=== PATIENT | male | born 1945 | race Caucasian/White ===

== ENCOUNTER 2018-12-28 13:21 | Emergency (ER) | payer OTHER, SELFPAY ==
[2018-12-28 13:26] VITALS: BP 156/80; PULSE 83; RESP 18; TEMP 36.6; O2SAT 99
--- NOTE | 2018-12-28 13:49 | W.ED.GENAD ---
Discharge Plan Disposition Patient Disposition: HOME Condition: Stable Discharge Details Chief Complaint: RashLesion Clinical Impression: Herpes zoster Primary Care Provider: Victor M Jeff ED Provider: Arun Humphries Home Meds and New Rx's Prescriptions: New valacyclovir 1 gram tablet 1,000 mg PO TID 7 Days Qty: 21 RF: 0 Continued aspirin [Aspirin Low-Strength] 81 MG tablet,chewable 1 tab PO DAILY RF: 0 omeprazole [Prilosec] 40 MG capsule,delayed release(DR/EC) 1 cap PO DAILY Qty: 90 RF: 4 amlodipine 5 MG tablet 5 mg PO DAILY Qty: 90 RF: 4 One-A-Day Men VitaCraves 200 mcg Tablet,Chewable RF: 0 Discharge Instructions Instructions: Shingles (ED) Additional Instructions: For discomfort you may apply aebt-sfp-zizfzqc lidocaine cream to areas of pain along with using Tylenol as directed on fryg-gne-gvcwtsp packaging. Please take medication until completely gone and return to the emergency department for any new or significant worsening of symptoms or further concerns otherwise follow-up with your primary care provider for reassessment as needed. Referrals: Victor M Jeff, DO [Primary Care Provider] - (As needed for reassessment or if not improving) Medical Decision Making Patient reports over the past 1 to 2 days he has felt generalized malaise but while riding on his atof-zw-nfpc this morning he started noticing some discomfort underneath his left arm. When he looked underneath his shirt he noticed a rash streaking around to his back. Patient denies any other symptoms and states that pain is minimal. Physical exam shows a mildly erythematous vesicular rash in a bandlike distribution underneath the left axilla ranging from the anterior left chest wall onto the back. Exam is otherwise unremarkable. Patient has classic symptoms of herpes zoster and placed on valacyclovir and encouraged to use ylgv-ssi-jzgoopq lidocaine cream for discomfort or acetaminophen as needed. Did consider placing patient on steroids but given history of GERD and Lin's esophagus I feel that given his report of minimal amounts of pain that this is not necessary at this time. Return precautions were discussed. After discussion of diagnosis and plan of care patient states that he has no further needs, questions, or concerns at this time and understands that he may return for any new or worsening symptoms or further concerns he may have. HPI General Mode of arrival: ambulatory. Date/Time Provider Initiated Documentation: 12/28/18 13:49. Limitations to Documentation: no limitations. Information obtained by: patient and RN notes reviewed. History of Present Illness 73 year old M presents to the emergency department with the chief complaint of rash, described as mild, with intensity rated at 1. Quality is described as burning and aching, and is localized to the chest (left chest wall). Patient started experiencing this day(s) (1) and it has been constant. No relieving factors improve symptom(s), No exacerbating factors reported . Patient did receive the following treatments prior to arrival, none Related Data Home Medications Medication Instructions Recorded Confirmed aspirin [Aspirin Low-Strength] 1 tab PO DAILY tab-cap 01/14/13 12/28/18 omeprazole [Prilosec] 1 cap PO DAILY #90 tab-cap 01/15/13 12/28/18 amlodipine 5 mg PO DAILY #90 tab-cap 03/26/18 12/28/18 One-A-Day Men VitaCraves 12/28/18 valacyclovir 1,000 mg PO TID 7 Days #21 tab 12/28/18 Previous Rx's Medication Instructions Recorded amlodipine 5 mg PO DAILY #90 tab-cap 03/26/18 valacyclovir 1,000 mg PO TID 7 Days #21 tab 12/28/18 Allergies Allergy/AdvReac Type Severity Reaction Status Date / Time No Known Allergies Allergy Unverified 12/28/18 13:42 General Stated Complaint: RashLesion GRISELDA: 4 Review of Systems Constitutional Denies fever(s) and Reports malaise Cardiovascular Denies chest pain and Denies dyspnea Respiratory Denies dyspnea Gastrointestinal Denies nausea and Denies vomiting Integumentary/Breasts Reports as per HPI and Reports rash PFSH Medical History Lin's esophagus GERD Hypertriglyceridemia Rosacea Smoker TUBULAR ADENOMA TUBULOVILLOUS ADENOMA OF RECTUM Surgical History Appendectomy (~1994) Cholecystectomy (~2010) Family History Father Heart disease Mother Cerebral arterial thrombosis Sister No problems noted. Sister No problems noted. Brother No problems noted. Son No problems noted. Son No problems noted. Social History Smoking/Tobacco Use Status: Current, status unknown Drug use: Never Do you feel safe at home: Yes Do you feel safe in your relationship?: Yes Exam Const General: cooperative, no acute distress and not ill appearing Orientation: alert, awake and oriented x3 Resp Effort & Inspection: normal respiratory effort, able to speak in complete sentences and no respiratory distress Skin Rashes: rashes noted (Vesicular mildly erythematous rash noted in bandlike distribution L axilla) Course Vital Signs Temperature 36.6 C 12/28/18 13:26 Pulse 83 12/28/18 13:26 Respiratory Rate 18 12/28/18 13:26 Blood Pressure 156/80 H 12/28/18 13:26 Pulse Oximetry 99 12/28/18 13:26 Temperature 36.6 C 12/28/18 13:26 Temperature Source Temporal Artery Scan 12/28/18 13:26 Pulse 83 12/28/18 13:26 Respiratory Rate 18 12/28/18 13:26 Respiratory Effort Non-Labored 12/28/18 13:41 Blood Pressure 156/80 H 12/28/18 13:26 Blood Pressure Position Sitting 12/28/18 13:26 Pulse Oximetry 99 12/28/18 13:26 Oxygen Delivery Method Room Air 12/28/18 13:26 Oxygen Flow Rate 0 12/28/18 13:26 Pain Level 2 12/28/18 13:26
--- NOTE | 2018-12-28 13:52 | ED.GENADUL_ITS ---
Discharge Plan Disposition Patient Disposition: HOME Condition: Stable Discharge Details Chief Complaint: RashLesion Clinical Impression: Herpes zoster Primary Care Provider: Victor M eJff ED Provider: Arun Humphries Home Meds and New Rx's Prescriptions: New valacyclovir 1 gram tablet 1,000 mg PO TID 7 Days Qty: 21 RF: 0 Continued aspirin [Aspirin Low-Strength] 81 MG tablet,chewable 1 tab PO DAILY RF: 0 omeprazole [Prilosec] 40 MG capsule,delayed release(DR/EC) 1 cap PO DAILY Qty: 90 RF: 4 amlodipine 5 MG tablet 5 mg PO DAILY Qty: 90 RF: 4 One-A-Day Men VitaCraves 200 mcg Tablet,Chewable RF: 0 Discharge Instructions Instructions: Shingles (ED) Additional Instructions: For discomfort you may apply eunf-tsi-dcolfhc lidocaine cream to areas of pain along with using Tylenol as directed on cvkc-bww-ddltiyx packaging. Please take medication until completely gone and return to the emergency department for any new or significant worsening of symptoms or further concerns otherwise follow- up with your primary care provider for reassessment as needed. Referrals: Victor M Jeff, DO [Primary Care Provider] - (As needed for reassessment or if not improving) Medical Decision Making Patient reports over the past 1 to 2 days he has felt generalized malaise but while riding on his gizc-bt-hqro this morning he started noticing some discomfort underneath his left arm. When he looked underneath his shirt he noticed a rash streaking around to his back. Patient denies any other symptoms and states that pain is minimal. Physical exam shows a mildly erythematous vesicular rash in a bandlike distribution underneath the left axilla ranging from the anterior left chest wall onto the back. Exam is otherwise unremarkab le. Patient has classic symptoms of herpes zoster and placed on valacyclovir and encouraged to use iohj-jcq-tionxuo lidocaine cream for discomfort or acetaminophen as needed. Did consider placing patient on steroids but given history of GERD and Lin's esophagus I feel that given his report of minimal amounts of pain that this is not necessary at this time. Return precautions were discussed. After discussion of diagnosis and plan of care patient states that he has no further needs, questions, or concerns at this time and understands that he may return for any new or worsening symptoms or further concerns he may have. HPI General Mode of arrival: ambulatory . Date/Time Provider Initiated Documentation: 12/28/18 13:49 . Limitations to Documentation: no limitations . Information obtained by: patient and RN notes reviewed . History of Present Illness 73 year old M presents to the emergency department with the chief complaint of rash, described as mild, with intensity rated at 1. Quality is described as burning and aching, and is localized to the chest (left chest wall). Patient started experiencing this day(s) (1) and it has been constant. No relieving factors improve symptom(s), No exacerbating factors reported . Patient did receive the following treatments prior to arrival, none Related Data Home Medications Medication Instructions Recorded Confirmed aspirin [Aspirin Low-Strength] 1 tab PO DAILY tab-cap 01/14/13 12/28/18 omeprazole [Prilosec] 1 cap PO DAILY #90 tab-cap 01/15/13 12/28/18 amlodipine 5 mg PO DAILY #90 tab-cap 03/26/18 12/28/18 One-A-Day Men VitaCraves 12/28/18 valacyclovir 1,000 mg PO TID 7 Days #21 tab 12/28/18 Previous Rx's Medication Instructions Recorded amlodipine 5 mg PO DAILY #90 tab-cap 03/26/18 valacyclovir 1,000 mg PO TID 7 Days #21 tab 12/28/18 Allergies Allergy/AdvReac Type Severity Reaction Status Date / Time No Known Allergies Allergy Unverified 12/28/18 13:42 General Stated Complaint: RashLesion GRISELDA: 4 Review of Systems Constitutional Denies fever(s) and Reports malaise Cardiovascular Denies chest pain and Denies dyspnea Respiratory Denies dyspnea Gastrointestinal Denies nausea and Denies vomiting Integumentary/Breasts Reports as per HPI and Reports rash PFSH Medical History Lin's esophagus GERD Hypertriglyceridemia Rosacea Smoker TUBULAR ADENOMA TUBULOVILLOUS ADENOMA OF RECTUM Surgical History Appendectomy (~1994) Cholecystectomy (~2010) Family History Father Heart disease Mother Cerebral arterial thrombosis Sister No problems noted. Sister No problems noted. Brother No problems noted. Son No problems noted. Son No problems noted. Social History Smoking/Tobacco Use Status: Current, status unknown Drug use: Never Do you feel safe at home: Yes Do you feel safe in your relationship?: Yes Exam Const General: cooperative, no acute distress and not ill appearing Orientation: alert, awake and oriented x3 Resp Effort & Inspection: normal respiratory effort, able to speak in complete sentences and no respiratory distress Skin Rashes: rashes noted (Vesicular mildly erythematous rash noted in bandlike distribution L axilla) Course Vital Signs Temperature 36.6 C 12/28/18 13:26 Pulse 83 12/28/18 13:26 Respiratory Rate 18 12/28/18 13:26 Blood Pressure 156/80 H 12/28/18 13:26 Pulse Oximetry 99 12/28/18 13:26 Temperature 36.6 C 12/28/18 13:26 Temperature Source Temporal Artery Scan 12/28/18 13:26 Pulse 83 12/28/18 13:26 Respiratory Rate 18 12/28/18 13:26 Respiratory Effort Non-Labored 12/28/18 13:41 Blood Pressure 156/80 H 12/28/18 13:26 Blood Pressure Position Sitting 12/28/18 13:26 Pulse Oximetry 99 12/28/18 13:26 Oxygen Delivery Method Room Air 12/28/18 13:26 Oxygen Flow Rate 0 12/28/18 13:26 Pain Level 2 12/28/18 13:26
== END 2018-12-28 14:02 | disposition home or self-care (01) ==
PROVIDERS: Emergency Provider Nurse Practitioner Family; PCP Emergency Medicine
DX: B02.9 Zoster without complications (principal)
CPT/HCPCS: 99283

== ENCOUNTER → 2022-03-22 02:06 | Outpatient (CLI) | payer MEDICARE, SELFPAY ==
--- NOTE | 2022-03-22 08:00 | DI.RAD_ITS ---
Exam(s) XR HIP RT COMPLETE AP PELVIS EXAM: XR HIP RT COMPLETE AP PELVIS CLINICAL HISTORY: rt hip pain, M25.551. TECHNIQUE: 2D digital imaging was performed. FINDINGS: Two views No evidence of pelvic nor hip fracture. Moderate-advanced joint space narrowing in the right hip, fu rther slightly increased from the prior study of 2017. Left hip appears unchanged. Sacroiliac joint s unremarkable. L4-5 disc space narrowing again noted. IMPRESSION: Further degenerative narrowing of the right hip joint space, when compared to 2017 DATA REPOSITORY: RADIATION DOSE DELIVERED:
--- NOTE | 2022-03-22 08:13 | DI.CTLCSR_ITS ---
Exam(s) CT CHEST LUNG CANCER SCREEN EXAM: CT CHEST LUNG CANCER SCREEN CLINICAL HISTORY: Screening for lung cancer, CURRENT SMOKER, F17.210. TECHNIQUE: Imaging Protocol: Low Dose Technique CONTRAST MATERIAL: None COMPARISON: CR ABD FLAT UPRIGHT PA CHEST from 09/21/2010 FINDINGS: CHEST: LUNGS: There is an area of mild infiltrate in the anterior segment of the right upper lobe. There is also a 3 millimeter noncalcified pleural based nodule in the posterior segment of the right upper lo be. Also a 6 millimeter nodular infiltrate slightly lower down the anterior segment of the right upp er lobe. In the right lower lobe posteriorly there is a pleural based small infiltrate measuring 7 x 5 millime ters. No pleural effusions. In the opposite-left lung there is a pleural-based 4 x 3 millimeter nodule in the left lower lobe. T here are no significant focal findings in the left upper lobe nor within the lingular segments. No p leural effusions. No significant focal findings in the trachea mainstem bronchi. MEDIASTINUM: There is no obvious hilar nor mediastinal adenopathy. Visualized thyroid unremarkable. CARDIAC: Heart size upper normal. There is no pericardial effusion. Caliber thoracic aorta is withi n normal limitscaliber of the thoracic aorta is slightly enlarged at 3.9 cm.. OTHER: No significant adrenal masses. Hiatal hernia moderate size noted. OSSEOUS: No significant osseous lesions.. IMPRESSION: 1. Bilateral lung findings as described above. No pleural effusions. 2. Recommend repeat CT scan in 6 months, earlier if clinically indicated. 3. Lung RADS Cat 3 - Probably Benign: Probably benign finding(s) - short term follow-up suggested; in clude nodules with a low likelihood of becoming a clinically active cancer. Lung-RADS 1.0 CATEGORIES: Category 0 - Prior chest CT exam(s) being located for comparison. Category 1 - Annual screening in 12 months. No nodules or definitely benign nodules. Category 2 - Annual screening in 12 months. Benign appearance. Nodules with low likelihood of becomin g active cancer. Category 3 - 6-month follow-up. Probably benign. Short-term follow-up suggested. Nodules with low lik elihood of becoming active cancer. Category 4A - 3-month follow-up and CT/PET if >8 mm in size. Suspicious finding. Findings which requi re additional testing. Category 4B - Findings which require additional testing and tissue sampling. Category 4X - Category 3 or 4 nodules with additional features or imaging findings that increases the suspicion of malignancy. Modifier S- Potentially clinically significant findings (non lung cancer) RADIATION DOSE DELIVERED: 79.59mGy.cm Total DLP 1.84mGy CTDIvol DATA REPOSITORY: All CT scans at this facility are submitted to the National Radiology Data Registry (NRDR) Dose Index Registry (DIR) with the [employer] (ACR). RADIATION OPTIMIZATION: All CT scans at this facility use at least one of these dose optimization te chniques: automated exposure control; mA and/or kV adjustment per patient size (includes targeted exa ms where dose is matched to clinical indication); or iterative reconstruction.
== END ==
PROVIDERS: PCP Family Medicine; Visit Provider Family Medicine
DX: F17.210 Nicotine dependence, cigarettes, uncomplicated (principal); M25.551 Pain in right hip; Z12.2 Encounter for screening for malignant neoplasm of respiratory organs
CPT/HCPCS: 71271; 73502

== ENCOUNTER → 2022-06-08 10:03 | Outpatient (BNVA) | payer MEDICARE, SELFPAY | PROVIDERS: PCP Family Medicine; Referring Provider Family Medicine; Visit Provider Student in an Organized Health Care Education/Training Program | DX: M16.11 Unilateral primary osteoarthritis, right hip (principal) | CPT/HCPCS: 99203 ==

== ENCOUNTER → 2022-06-15 02:03 | Outpatient (CLI) | payer MEDICARE, SELFPAY ==
[2022-06-15] MEDS: methylPREDNISolone ACETATE 80 MG/ML VIAL IM (13:45)
[2022-06-15] MEDS: Bupivacaine 0.5% Pres-Free 10 ML VIAL 5 ML IJ (13:46)
[2022-06-15] MEDS: Omnipaque 300 MG/ML 10 ML BTL IJ (13:47)
--- NOTE | 2022-06-15 13:47 | DI.RAD_ITS ---
Exam(s) RF JOINT INJECTION FLUORO GUID EXAM: RF JOINT INJECTION FLUORO GUID CLINICAL HISTORY: R HIP INJ UNDER FLUORO,DJD RT HIP, PRIMARY OA,M16.11 TECHNIQUE: 2D and realtime digital imaging was performed. COMPARISON: No exams were available for comparison FINDINGS: fluoroscopy was utilized by Dr. Norris during right hip injection. Hard copy shows injection in t he right hip joint space. IMPRESSION: RADIATION DOSE DELIVERED: mook Sawyer=0.37 mGy Total DLP
--- NOTE | 2022-06-16 07:44 | W.PROCNOTE ---
Date of service: 06/15/22 Time of Service: 13:40 Procedure Note Date of procedure: 06/15/22 Procedure: Right Hip Injection with Fluoroscopic Guidance Surgeon/Proceduralist/Physician: Quincy Norris Procedure Diagnosis: Right Hip Osteoarthritis Procedure Indications: Juan has had persistent pain of the RIGHT hip and groin. Noninvasive measures have been tried. To serve as both diagnostic and therapeutic, an injection under fluoroscopy was recommended. I had discussed the risks of the procedure and the patient elected to proceed. Procedure Description: Juan was greeted in the flouroscopy room. The correct side was identified and the consent was reviewed with the patient and signed. The patient was then placed in the supine position on the fluoroscopy table. The RIGHT hip was then prepped with Chloraprep. The anterolateral injection starting point was identiifed by bony landmarks and fluoroscopy. The skin and soft tissue in the tract of the injection was anesthetized with 1% Lidocaine. A spinal needle was then inserted deep into the hip joint at the level of the lateral femoral neck under fluoroscopic guidance. A small amount of Omnipaque solution was injected to confirm intraarticular placement. Once confirmed, the hip was injected with 5cc of 0.5% Bupivicaine and 80mg of Depo-Medrol. A bandaid was placed on the injection site. The patient tolerated the procedure well.
== END ==
PROVIDERS: PCP Family Medicine; Visit Provider Student in an Organized Health Care Education/Training Program
DX: M16.11 Unilateral primary osteoarthritis, right hip (principal); M25.551 Pain in right hip
CPT/HCPCS: 20610; 77002; J1040

== ENCOUNTER 2022-07-04 02:24 | Outpatient (CLI) | payer MEDICARE, SELFPAY ==
[2022-07-04 08:46] LABS: Calculated LDL 92 mg/dL (<100); Cholesterol 150 mg/dL (<200); Glucose 140 mg/dL (74-106); HDL Cholesterol 38 mg/dL (40-60); Triglyceride 100 mg/dL (<150)
== END 2022-07-04 02:25 | disposition home or self-care (01) ==
LOC: LBO 02:24
PROVIDERS: PCP Family Medicine; Visit Provider Family Medicine
DX: E78.5 Hyperlipidemia, unspecified (principal); R73.9 Hyperglycemia, unspecified
CPT/HCPCS: 36415; 80061; 82947

== ENCOUNTER 2022-07-11 12:40 | Outpatient (CLI) | payer MEDICARE, SELFPAY ==
--- NOTE | 2022-07-11 12:30 | DI.RAD_ITS ---
Exam(s) XR ANKLE LT COMPLETE EXAM: XR ANKLE LT COMPLETE CLINICAL HISTORY: left ankle swelling M79.89 LT ANKLE SWELLING. TECHNIQUE: 2D digital imaging was performed. COMPARISON: No exams were available for comparison FINDINGS: 3 views Soft tissue swelling but no fracture nor widening of the ankle mortise. Talar dome unremarkable. No obvious degenerative changes. Ankle and subtalar joints appear unremarkable as do the talonavicular and calcaneocuboid joints. Bone density normal. No osseous lesions. IMPRESSION: No significant osseous findings. Soft tissue swelling noted. DATA REPOSITORY: RADIATION DOSE DELIVERED:
--- NOTE | 2022-07-11 12:30 | DI.US_ITS ---
Exam(s) US LOWER EXTREMITY VENOUS LT EXAM: US LOWER EXTREMITY VENOUS LT CLINICAL HISTORY: left leg swelling M79.89 TECHNIQUE: Grayscale, color, and doppler imaging of the deep venous system of the left lower extremi ty was performed. COMPARISON: US ABDOMEN ULTRASOUND (P) from 09/21/2010 FINDINGS: There is no evidence of intraluminal thrombus and there is normal compression and augmentation demons trated within the common femoral vein, femoral vein, and popliteal vein. In the ipsilateral calf the interrogated veins also exhibit normal compression/ augmentation properti es. The ipsilateral saphenofemoral junction is patent. IMPRESSION: 1. No evidence of DVT in the left lower extremity. DATA REPOSITORY:
== END 2022-07-11 13:00 ==
LOC: DI 12:40
PROVIDERS: PCP Family Medicine; Visit Provider Physician Assistant
DX: R22.42 Localized swelling, mass and lump, left lower limb (principal)
CPT/HCPCS: 73610; 93971

== ENCOUNTER 2022-08-10 15:41 | Outpatient (CLI) | payer MEDICARE, SELFPAY ==
[2022-08-10 15:44] LABS: HCT 28.4 % (40.0-50.0); HGB 7.2 g/dL (13.5-17.5); MCH 15.6 pg (27.0-33.0); MCHC 25.4 % (32.0-36.0); Platelet Count 278 10^3/uL (130-400); RBC 4.61 10^6/uL (4.36-5.78); RDW 21.5 % (11.8-14.1); RDW-SD 45.7 fL; WBC 9.68 10^3/uL (4.4-10.8)
[2022-08-10 16:16] LABS: MCV 62 fL (80-95)
[2022-08-10 16:28] LABS: ALT 20 U/L (16-63); AST 13 U/L (15-37); Albumin 3.5 g/dL (3.4-5.0); Alkaline Phosphatase 108 U/L (46-116); Anion Gap 4.7 mmol/L (3-11); BUN 13 mg/dL (7-18); Bilirubin, Total 0.6 mg/dL (0.2-1.0); CO2 29.3 mmol/L (21.0-32.0); CREATININE 0.9 mg/dL (0.70-1.30); Calcium 8.8 mg/dL (8.5-10.1); Chloride 101 mmol/L (98-107); Estimated GFR 87.96 (mL/min/1.73m2); Glucose 158 mg/dL (74-106); NT-proBNP 1283 pg/mL (<300); Potassium 3.9 mmol/L (3.5-5.1); Sodium 135 mmol/L (136-145); TSH (W/Ref FT4) 2.88 uIU/mL (0.36-3.74); Total Protein 7.5 g/dL (6.4-8.2)
== END 2022-08-10 15:42 | disposition home or self-care (01) ==
LOC: LBO 15:41
PROVIDERS: PCP Family Medicine; Visit Provider Nurse Practitioner Family
DX: I50.9 Heart failure, unspecified (principal); I10 Essential (primary) hypertension; R06.02 Shortness of breath; D64.9 Anemia, unspecified
CPT/HCPCS: 36415; 80053; 85027; 83880; 84443

== ENCOUNTER 2022-08-10 15:45 | Outpatient (CLI) | payer MEDICARE, SELFPAY ==
--- NOTE | 2022-08-10 13:30 | DI.RAD_ITS ---
Exam(s) XR CHEST 2V PA LATERAL EXAM: XR CHEST 2V PA LATERAL CLINICAL HISTORY: SOB x 1 month, R06.02, worsening. Abnormal sounds, adventitious, R06.89. TECHNIQUE: COMPARISON: CR ABD FLAT UPRIGHT PA CHEST from 09/21/[address] CHEST LUNG CANCER SCREEN from 03/22/2022 FINDINGS: Heart is enlarged. There are bilateral pleural effusions. There is prominence of upper lobe and lyndon tral pulmonary vasculature. Are increased pulmonary interstitial markings particularly in the lower lung mccabe. Possible right suprahilar pulmonary nodule, appropriate follow-up films requested follo wing treatment. IMPRESSION: The appearance is consistent with CHF. Please correlate clinically. RADIATION DOSE DELIVERED: Total DLP
== END 2022-08-10 16:05 ==
LOC: DI 15:45
PROVIDERS: PCP Family Medicine; Visit Provider Nurse Practitioner Family
DX: R06.02 Shortness of breath (principal); R06.89 Other abnormalities of breathing; I50.9 Heart failure, unspecified
CPT/HCPCS: 71046

== ENCOUNTER 2022-08-10 19:51 | Inpatient (IN) | payer MEDICARE, SELFPAY ==
--- NOTE | 2022-08-10 20:00 | RT.EKG_ITS ---
APPROVED REPORT Exam: Resting ECG Reason for Exam: heart rate Patient Location: E HR:94 bpm ECG Measurements Heart Rate 94 AXIS FL 159 P -13 QRSd 146 QRS 244 QT 422 T 30 QTc 528 Conclusion Sinus rhythm...normal P axis, V-rate 60- 99 Inferior infarct, old...Q >35mS, II III aVF
[2022-08-10 20:05] VITALS: BP 143/73; PULSE 94; RESP 18; TEMP 36.6; O2SAT 96
--- NOTE | 2022-08-10 20:30 | DI.CT_ITS ---
Exam(s) CT CHEST PE CTA EXAM: CT CHEST PE CTA CLINICAL HISTORY: chest pain, shortness of breath. TECHNIQUE: Imaging Protocol: Axial CT angiography was performed with multi-slice acquisition and mu lti-planar reconstructions as well as axial, coronal and sagittal MIP reconstructions. CONTRAST MATERIAL: Intravenous: Omnipaque 350 Contrast volume:100 ml COMPARISON: CT CT CHEST LUNG CANCER SCREEN from 03/22/2022 CR XR CHEST 2V PA LATERAL from 08/10/2022 FINDINGS: Pulmonary Arteries: No evidence of filling defect to suggest pulmonary emboli. Tracheobronchial tree: Patent where visualized. Mediastinum and Odalys: No dominant adenopathy or fluid collection. Pulmonary parenchyma: Suboptimally evaluated due to expiratory changes. Mild atelectasis adjacent to the effusions. Gnay-ys-iwcigcnu bilateral intra lobular septal thickening. Pleura: Moderate-sized bilateral pleural effusions Heart: The heart is moderately at dilated. Coronary artery calcifications are seen. Aorta: Thoracic aorta non-dilated. No aneurysm. No dissection. Upper abdomen: Small hiatal hernia. Bones: Degenerative changes, unremarkable for age. IMPRESSION: No evidence of pulmonary embolism. Moderate size bilateral pleural effusions, cardiomegaly and interlobular septal thickening consistent with CHF. RADIATION DOSE DELIVERED: 485.16mGy.cm Total DLP DATA REPOSITORY: All CT scans at this facility are submitted to the National Radiology Data Registry (NRDR) Dose Index Registry (DIR) with the [employer] (ACR). RADIATION OPTIMIZATION: All CT scans at this facility use at least one of these dose optimization te chniques: automated exposure control; mA and/or kV adjustment per patient size (includes targeted exa ms where dose is matched to clinical indication); or iterative reconstruction.
--- NOTE | 2022-08-10 20:34 | W.ED.GENAD ---
Discharge Plan Disposition Patient Disposition: Admit to [facility] Condition: Stable Discharge Details Chief Complaint: GenMedical Clinical Impression: CHF (congestive heart failure), Anemia Primary Care Provider: Jose Sesay ED Provider: Bo Anderson Grenola Meds and New Rx's Prescriptions: No Action cilostazol 100 mg tablet 100 mg PO BID Qty: 60 5RF nicotine (polacrilex) [Nicorette] 4 mg gum 4 mg buccal Q1H Qty: 100 8RF cephalexin 500 mg capsule 500 mg PO QID Qty: 40 0RF aspirin [Aspirin Low-Strength] 81 MG tablet,chewable 1 tab PO DAILY amlodipine 5 mg tablet 5 mg PO DAILY Qty: 90 4RF omeprazole [Prilosec] 40 mg capsule,delayed release(DR/EC) 40 mg PO BID Qty: 90 Rx Instructions: 12/28/18 20 mg bid furosemide 40 mg tablet 40 mg PO DAILY Qty: 7 0RF One-A-Day Men VitaCraves 200 mcg Tablet,Chewable Medical Decision Making 77 yo female with hx of jersey's esophagus, htn, who comes in with chief complaint of cough for 3 days. He states he was feeling well until 3 days ago when he started to have cough and body aches. He denies having any fevers, chills. No known sick contacts. He saw a provider at his pcp's office today for these symptoms, had labs done which revealed a hemoglobin of 7.2 which is unknown how long he has had this for as there hasn't been another cbc in the electronic medical record and also an xray showing likely chf so was referred here. He denies chest pain or dyspnea at rest but has noted that when he walks around he does feel short of breath and has felt this for weeks per patient. He is stable on arrival, speaking in full sentences in no distress. He has diminished breath sounds at the bases, no wheezing, no murmurs. On bedside u/s he does have diminished appearing EF and no pericardial effusion. He declines rectal exam currently, he will try to provide a stool sample for hemoccult testing. He has no abdominal tenderness on exam. Will obtain repeat cbc, cmp, probnp, troponin and also ct chest for pe to evaluate for possible pe. pt stable, appears well speaking in full sentences. CTA shows no pe, does have chf, 40mg iv lasix ordered. troponin minimally elevated at over 90, probnp over 1300, has microcytic anemia, hemoglobin 7.4 and do not feel he requires transfusion at this time. Guiac on bedside exam done by me is negative. He still has no dyspnea or chest pain currently. Given his new onset chf and minimally elevated troponin will discuss with hospiatlist about admission. will hold on heparin given lack of chest pain here or recently. Differential Diagnosis Differential Diagnosis: chf, pneumonia, pe, anemia, gi bleed Imaging Data Radiologic Study: Attestation: I personally reviewed and interpreted this imaging study as follows: Imaging: CT Scan Radiologist's impression: IMPRESSION: 1. Moderate appearing CHF with details as above. 2. No pulmonary emboli are seen. 3. Additional findings as described. Lab Data Lab results reviewed: Yes I reviewed the patient's lab results. ECG Data Attestation: I personally reviewed and interpreted this ECG (s) as follows: Prior ECG tracings: not available for review Interpretation: sinus rhythm, rate of 94, pr 159, no stemi Sign Out No HPI General Mode of arrival: ambulatory. Date/Time Provider Initiated Documentation: 08/10/22 20:00. Limitations to Documentation: no limitations. Information obtained by: patient. History of Present Illness 77 year old M presents to the emergency department with the chief complaint of cough, described as moderate, Patient started experiencing this day(s) (3) and it has been constant. No relieving factors improve symptom(s), No exacerbating factors reported . Patient notes denies diaphoresis and fever/chills. Patient did receive the following treatments prior to arrival, none Related Data Home Medications Medication Instructions Recorded Confirmed aspirin 81 mg chewable tablet 1 tab PO DAILY 01/14/13 08/10/22 (Aspirin Low-Strength) multivitamin with minerals-folic 12/28/18 08/10/22 acid 200 mcg chewable tablet (One-A-Day Men VitaCraves) amlodipine 5 mg tablet 5 mg PO DAILY #90 tab-caps 07/15/21 08/10/22 cilostazol 100 mg tablet 100 mg PO BID #60 tabs 03/14/22 08/10/22 omeprazole 40 mg capsule,delayed 40 mg PO BID #90 tab-caps 06/08/22 08/10/22 release (Prilosec) nicotine (polacrilex) 4 mg gum 4 mg buccal Q1H #100 ea 06/28/22 08/10/22 (Nicorette) cephalexin 500 mg capsule 500 mg PO QID #40 caps 07/11/22 08/10/22 furosemide 40 mg tablet 40 mg PO DAILY #7 tabs 08/10/22 Previous Rx's Medication Instructions Recorded amlodipine 5 mg tablet 5 mg PO DAILY #90 tab-caps 07/15/21 cilostazol 100 mg tablet 100 mg PO BID #60 tabs 03/14/22 nicotine (polacrilex) 4 mg gum 4 mg buccal Q1H #100 ea 06/28/22 (Nicorette) cephalexin 500 mg capsule 500 mg PO QID #40 caps 07/11/22 furosemide 40 mg tablet 40 mg PO DAILY #7 tabs 08/10/22 Allergies Allergy/AdvReac Type Severity Reaction Status Date / Time No Known Allergies Allergy Verified 08/10/22 13:18 General Stated Complaint: GenMedical GRISELDA: 3 Review of Systems All systems reviewed & are unremarkable except as noted in HPI and below Constitutional Constitutional: Denies chills, Denies fever(s) and Denies weakness Gastrointestinal Gastrointestinal: Denies abdominal pain, Denies nausea and Denies vomiting Musculoskeletal Musculoskeletal: Denies joint swelling Neurologic Neurologic: Denies weakness PFSH All Active Problems (Updated 08/10/22 @ 22:26 by Bo Anderson MD) CHF (congestive heart failure) (Chronic) Anemia (Chronic) CHF (congestive heart failure) (Chronic) Adventitious breath sounds (Acute) Shortness of breath (Acute) Degenerative joint disease of right hip (Acute) Claudication (Acute) Hip pain, right (Acute) 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 Sister No problems noted. Brother No problems noted. Son No problems noted. Son No problems noted. Social History Smoking/Tobacco Use Status: Current, status unknown Smoking risk assessment performed?: Yes Drug use: Never Substance use type: does not use Do you feel safe at home: Yes Do you feel safe in your relationship?: Yes Exam Const General: no acute distress Orientation: alert HENMT Head: normal to inspection Ears: external ears normal General nose exam: external nose normal Mouth: moist mucous membranes Eyes General: appearance normal, both eyes and all related structures Neck Neck: normal visual inspection Resp Effort & Inspection: normal respiratory effort and able to speak in complete sentences Cardio Rate: regular rate GI Palpation: soft and nontender Skin General skin exam: no rashes or lesions noted Neuro General: patient alert and patient oriented x3 Extrem General: normal to inspection Psych Mental Status: mental status grossly normal Course Vital Signs Vital signs: Vital Signs Temperature 36.6 C 08/10/22 20:05 Pulse 94 H 08/10/22 20:05 Respiratory Rate 18 08/10/22 20:05 Blood Pressure 143/73 H 08/10/22 20:05 Pulse Oximetry 96 08/10/22 20:05 Temperature 36.6 C 08/10/22 20:05 Temperature Source Temporal Artery Scan 08/10/22 20:05 Pulse 94 H 08/10/22 20:05 Respiratory Rate 18 08/10/22 20:05 Blood Pressure 143/73 H 08/10/22 20:05 Pulse Oximetry 96 08/10/22 20:05 Oxygen Delivery Method Room Air 08/10/22 20:05 Oxygen Flow Rate 0 08/10/22 20:05 Pain Level 0 08/10/22 20:05 Lab/Test Results Lab/Test Results: Laboratory Tests Range/Units 08/10/22 20:16 COVID-19 Source Cancelled SARS-CoV-2 (PCR) Cancelled POCUS Exam (ED) Limited Cardiac Exam DATE OF EXAM: 08/10/22 TIME OF EXAM: 20:36 PROVIDER THAT PERFORMED THE STUDY: Bo Anderson REASON FOR EXAM: Evaluation of LV function VISUALIZED STRUCTURES: Four Chambers VIEW OBTAINED: Parasternal long-axis PERTINENT FINDINGS/IMPRESSION: LV dysfunction; No pericardial effusion Exam complete
[2022-08-10 20:56] VITALS: RESP 21
[2022-08-10 20:57] LABS: Abs Immature Grans 0.06 10^3/uL (0.0-0.06); Absolute Basophil Count 0.07 10^3/uL (0.0-0.2); Absolute Eosinophil Count 0.34 10^3/uL (0.0-0.7); Absolute Monocyte Count 0.71 10^3/uL (0.1-0.8); Absolute Neutrophil Count 7.96 10^3/uL (1.2-6.7); Basophils % 0.7; Eosinophils % 3.2; HCT 29.1 % (40.0-50.0); HGB 7.4 g/dL (13.5-17.5); Immature Grans % 0.6; Lymphocytes % 13.3; MCH 15.6 pg (27.0-33.0); MCHC 25.4 % (32.0-36.0); MCV 61 fL (80-95); MPV 9.8 fL (8.0-11.0); Monocytes % 6.7; Neutrophils % 75.5; Nucleated RBC 0.2 % (0.0-0.3); Platelet Count 271 10^3/uL (130-400); RBC 4.74 10^6/uL (4.36-5.78); RDW 21.3 % (11.8-14.1); RDW-SD 45.7 fL; WBC 10.54 10^3/uL (4.4-10.8)
[2022-08-10 21:06] LABS: INR 1.1 (0.9-1.1); PTT Activated 25.4 sec (21.0-27.5)
[2022-08-10 21:08] LABS: Bilirubin Negative (Negative); Blood Negative (Negative); Clarity Clear (Clear); Glucose Negative (Negative); Ketones Negative (Negative); Leukocyte Esterase Trace (Negative); Nitrite Negative (Negative); Urobilinogen 0.2 EU/dL (Up TO 0.2); pH 6.5 (5-8)
[2022-08-10] MEDS: Omnipaque 350 MG/ML 100 ML BTL IJ (21:10)
[2022-08-10] MEDS: Normal Saline - Diluent 50 ML VIAL IJ (21:11)
[2022-08-10 21:15] LABS: ALT 20 U/L (16-63); AST 15 U/L (15-37); Albumin 3.4 g/dL (3.4-5.0); Alkaline Phosphatase 109 U/L (46-116); Anion Gap 6.7 mmol/L (3-11); BUN 13 mg/dL (7-18); Bilirubin, Total 0.5 mg/dL (0.2-1.0); CO2 29.3 mmol/L (21.0-32.0); Calcium 8.7 mg/dL (8.5-10.1); Chloride 100 mmol/L (98-107); Estimated GFR 77.52 (mL/min/1.73m2); Glucose 183 mg/dL (74-106); Magnesium 1.7 mg/dL (1.8-2.4); NT-proBNP 1329 pg/mL (<300); Potassium 3.7 mmol/L (3.5-5.1); Sodium 136 mmol/L (136-145); Total Protein 7.4 g/dL (6.4-8.2)
[2022-08-10 21:18] LABS: Troponin I 93 ng/L (<or=60)
[2022-08-10] MEDS: Furosemide 40 MG/4 ML VIAL IVP (21:31)
[2022-08-10 21:32] LABS: Anisocytosis 3+; Diff Comment Agrees w/ Instrument; Microcytosis 3+; Ovalocytes 3+; Target Cells 2+
[2022-08-10 21:33] LABS: Poikilocytes 2+
--- NOTE | 2022-08-10 21:35 | DI.VRAD_ITS ---
PROCEDURE INFORMATION: Exam: CTA Chest With Contrast Exam date and time: 08/10/2022 20:50 Age: 77 years old Clinical indication: Shortness of breath and other: Chest pain, shortness of breath TECHNIQUE: Imaging protocol: Computed tomographic angiography of the chest with contrast. 3D rendering (Not supervised by radiologist): MIP and/or 3D reconstructed images were created by the technologist. Radiation optimization: All CT scans at this facility use at least one of these dose optimization techniques: automated exposure control; mA and/or kV adjustment per patient size (includes targeted exams where dose is matched to clinical indication); or iterative reconstruction. Contrast material: OMNI 350; Contrast volume: 100 ml; Contrast route: INTRAVENOUS (IV); COMPARISON: CT CHEST LUNG CANCER SCREEN 03/22/2022 14:40 FINDINGS: Pulmonary arteries: No pulmonary emboli. Aorta: No aortic aneurysm. No aortic dissection. Lungs: Interlobular septal thickening almost certainly interstitial pulmonary edema. Mild ground-glass opacities almost certainly a mild alveolar edema. Moderate compressive atelectasis in the lung bases. Pleural spaces: Moderate bilateral pleural effusions are new. No pneumothorax. Heart: Moderate cardiomegaly is more pronounced. Lymph nodes: Mediastinal lymph nodes are mildly prominent particularly in the paratracheal space. Bones/joints: No acute fracture or subluxation. Soft tissues: No suspicious lesions. IMPRESSION: 1. Moderate appearing CHF with details as above. 2. No pulmonary emboli are seen. 3. Additional findings as described. Dictated and Authenticated by: Indy Green MD. Ordering:ARVIN Soriano MD
[2022-08-10 21:43] LABS: Bacteria Negative HPF (Negative); C & S Indicated? Yes; Casts 0-2 Hyaline LPF (Negative); Crystals Negative HPF (Negative); Epithelial Cells Rare HPF (Negative); Mucus Negative (Negative); RBC 0-2 HPF (0-2)
[2022-08-10 21:58] LABS: COVID-19 PCR Negative (Negative); Influenza A PCR Negative (Negative); Influenza B PCR Negative (Negative); RSV PCR Negative (Negative)
[2022-08-10 22:03] LABS: Source Nasopharynx
[2022-08-10] MEDS: Aspirin 325 MG TAB PO (23:08)
[2022-08-10 23:18] VITALS: BP 120/78; PULSE 90; RESP 22; TEMP 36.7; O2SAT 95
--- OUTSIDE RECORDS SUMMARY | 2022-08-10 23:23 | XMS_ITS | Encounter Summary ---
:1945 Author Organization [facility] [place] [address] Care Team Providers Name Role Phone TomerVictor M franz Primary Care Provider Encounter Details Date Type Department Care Team Description 05/16/2016 Anesthesia Event Gastroenterology at [facility] Victor M Andre MD [facility] [place] [address] [facility] Niraj Ely CRNA [facility] [place] [address] [place] [address] Anesthesia Record Procedure Summary Procedure Name Responsible Anesthesia Start Anesthesia Stop Time Anesthesiologist Time EGD, UPPER GI Victor M Andre MD 05/16/16 0812 05/16/16 090 3 ENDOSCOPY (Trunk) Events Date Time Event Comment 05/16/2016 0756 0812 AN Verify 0812 Start 0812 An Start Data 0824 An Induction 0826 Anesthesia Ready 0903 an stop data 0903 Recovery or ICU Handoff Patient care was transferred to the destination unit staff after review of the patient's medica l history, current anesthetic/surgi saundra status and plan, according to the Provider Handoff Checklist. 0903 Stop Name Total Propofol 60 mg Propofol INF 424.8 mg PHENYLephrine 160 mcg lactated ringers infusion 0 mL Agents Name O2 Blood No blood administrations on file. Lines, Drains, and Airways Type Details Placement Removal PIV 05/16/16; 0745; metacarpal 05/16/16 0745 by Gidd ings, 05/16/16 0934 by vein right (top of hand); POOL Valdez Annette L RN [id number] catheter system; 22 gauge; Cecilia Tanner RN; distraction, tolerated well; 05/16/16; 0934 documented in this encounter Social History Tobacco Use Types Packs/Day Years Used Date Smoking Tobacco: Every Day Cigarettes 1 Smokeless Tobacco: Never Alcohol Use Standard Drinks/Week Comments No 0 (1 standard drink = 0.6 oz pure alcoho l) hunting season Sex Assigned at Date Recorded Not on file documented as of this encounter OR Notes Anesthesia Postprocedure Evaluation - Victor M Andre MD - 05/16/2016 9:35 AM EDT [facility] Department of Anesthesiology Post-procedure Note Patient: Hardik Arevalo Procedure Summary Date Anesthesia Start Anesthesia Stop Room / Location 05/16/16 0812 0903 [facility] ENDO 4 / [facility] Procedure Diagnosis Surgeon Responsible Provider EGD, UPPER GI ENDOSCOPY (N/A Trunk); UPPER GASTROINTESTINAL ENDOSCOPY,WITH BIOPSY SINGLE OR MULTIPLE (N/A ) (6 mon f/u from 10/22/14; barretts ablation; CONSULT ) Eric Livingston MD Dodds, Thomas M, MD All Anesthesia Providers: Anesthesiologist: Victor M Andre MD WELL SERVICES OPERATOR: Niraj Cosby CRNA Last (1hr) Vitals: BP 104/67 (05/16/16 0915) Temp Pulse Resp SpO2 97 % (05/16/16 0920) Patient Location: PACU/[facility] Level of Consciousness: Awake and Alert Pain Management: Satisfactory Analgesia PONV: None Cardiovascular Status: At Baseline Respiratory Status: At Baseline Postoperative Fluid Status: Intravascular EUvolemia Possible Anesthetic Complications: NONE apparent at time of evaluation Final Primary Anesthesia Type: MAC (The anesthetic type performed was the same as planned.) Comments: Anesthesia Preprocedure Evaluation - Victor M Andre MD - 05/16/2016 7:52 AM EDT Pre-Anesthesia Evaluation for: Hardik Arevalo a 71 y.o. male. Procedure(s): EGD, UPPER GI ENDOSCOPY Patient Active Problem List Diagnosis ??? COPD (chronic obstructive pulmonary disease) ??? Cigarette smoker ??? Gastroesophageal reflux Lin's ??? Hyperlipidemia ??? H/O colonoscopy with polypectomy Tubulovillous adenoma ??? Intramucosal esophageal cancer No past medical history on file. Past Surgical History Procedure Laterality Date ??? Pro endoscopic us exam, esoph 03/19/2013 UPPER EUS- ENDOSCOPIC ULTRASOUND performed by Eric Livingston MD at [facility] END[facility]COPY ??? Pro upper gi endoscopy, diagnostic 08/26/2013 EGD, UPPER GI ENDOSCOPY performed by Eric Livingston MD at [facility] ??? Pro upper gi endoscopy, diagnostic 12/10/2013 EGD, UPPER GI ENDOSCOPY performed by Eric Livingston MD at [facility] ??? Pro upper gi endoscopy, biopsy 03/24/2014 EGD WITH BIOPSY performed by Eric Livingston MD at [facility] ??? Pro upper gi endoscopy, biopsy N/A 10/22/2014 EGD WITH BIOPSY performed by Eric Livingston MD at [facility] ??? Pro upper gi endoscopy, biopsy N/A 04/29/2015 UPPER GASTROINTESTINAL ENDOSCOPY,WITH BIOPSY SINGLE OR MULTIPLE performed by Eric Livingston MD at [facility] Social History Substance Use Topics ??? Smoking status: Current Every Day Smoker Packs/day: 1.00 Types: Cigarettes ??? Smokeless tobacco: Never Used ??? Alcohol use No Comment: hunting season History Drug Use No No Known Allergies Medications: MAR and/or home medications have been reviewed. Physical Exam: Vitals: 05/16/16 0739 BP: (!) 169/97 Pulse: 64 Resp: 16 Body mass index is 27.2 kg/(m^2). Height: 180.3 cm (5' 11) Weight - Scale: 88.5 kg (195 lb) Airway Assessment: Mallampati: I TM distance: >3 FB Neck ROM: full Cardiovascular Assessment: Pulmonary Assessment: PE comment: Somewhat prolonged expiratory phase. Scattered wheeze on forced expiration. Dental Assessment: - normal exam Misc Assessment: Anesthesia Plan: ASA 2 MAC, with a(n) intravenous induction Anesthesia - R/B/As discussed. QSA. Forced expiratory wheeze noted C/W COPD. Active with good exercise capacity. Plan MAC with GA backup. Region - Other Informed Consent: Anesthetic plan and risks discussed with patient. Plan discussed with WELL SERVICES OPERATOR. [facility] Staff Note documented in this encounter Plan of Treatment Not on filedocumented as of this encounter Visit Diagnoses Not on filedocumented in this encounter Administered Medications Inactive Administered Medications - up to 3 most recent administrations Medication Order MAR Action Action Date Dose Rate Site lactated ringers infusion New Bag 05/16/2016 8:12 AM EDT 100 mL/hr, Intravenous, CONTINUOUS, Starting on Sun05/16/16 at 0800, Until Sun05/16/16 at 0934, Endoscopy (Day of Procedure) New Bag 05/16/2016 7:48 AM EDT 100 mL/hr 100 mL/hr PHENYLephrine HCl in NS (PF) (NGUYỄN-SYNEPHRINE) Given 8:46 AM EDT 80 mcg 0.8 mg/10 mL (80 mcg/mL) multi-dose injection Syrg PRN, Starting on Sun05/16/16 at 0843, Until Sun05/16/16 at 0903, Anesthesia Intra-op, Routine Given 05/16/2016 8:43 AM EDT 80 mcg propofol (DIPRIVAN) 10 mg/mL bolus injection Given 6 8:27 AM EDT 20 mg (Anesthesia) PRN, Starting on Sun05/16/16 at 0824, Until Sun05/16/16 at 09, Anesthesia Intra-op Given 05/16/2016 8:24 AM EDT 40 mg propofol (DIPRIVAN) Rate/Dose 05/16/2016 8:40 100 mcg/kg/min 53.1 mL /hr infusion Change AM EDT CONTINUOUS PRN, Starting on Sun05/16/16 at 0824, Until Sun05/16/16 at 09, Anesthesia Intra-op, Routine Rate/Dose Change 05/16/2016 8:32 AM EDT 150 mcg/kg/min 79.7 mL/hr New Bag 05/16/2016 8:24 AM EDT 200 mcg/kg/min 106.2 mL/hr documented in this encounter Care Teams Tailer Out Relationship Specialty Start Date End Date Victor M Jeff DO PCP - General 03/14/[address] [place] [address] documented as of this encounter
--- OUTSIDE RECORDS SUMMARY | 2022-08-10 23:23 | XMS_ITS | Encounter Summary ---
:1945 Author Organization [facility] Address [address] [place] [address] Care Team Providers Name Role Phone TomerVictor M alvarado Primary Care Provider Encounter Details Date Type Department Care Team Description 04/29/2015 [place] [facility] [place]ston UPPER GASTROINTESTINAL [facility] Norm Messer MD ENDOSCOPY,[place] [address] ONE MEDICAL SINGLE OR MULTIPLE ([facility] [phone] CENTER [facility]) [place] [address] Social History Tobacco Use Types Packs/Day Years Used Date Smoking Tobacco: Every Day Alcohol Use Standard Drinks/Week Comments No 0 (1 standard drink = 0.6 oz pure alcoho l) hunting season Sex Assigned at Date Recorded Not on file documented as of this encounter Last Filed Vital Signs Vital Sign Reading Time Taken Comments Blood Pressure 130/73 04/29/2015 9:15 AM EDT Pulse 65 04/29/2015 9:15 AM EDT Temperature 36.3 ??C (97.3 ??F) 04/29/2015 7:33 AM EDT Respiratory Rate 18 04/29/2015 8:58 AM EDT Oxygen Saturation 100% 04/29/2015 9:15 AM EDT Inhaled Oxygen Concentration - - Weight 90.7 kg (200 lb) 04/29/2015 7:33 AM EDT Height 180.3 cm (5' 11) 04/29/2015 7:33 AM EDT Body Mass Index 27.89 04/29/2015 7:33 AM EDT documented in this encounter Discharge Instructions Discharge InstructionsCameron Thomas RN - 04/29/2015 9:00 AM EDT You may have received medication before and/or during your procedure, which affects judgement and reaction time. Do not drive, operate machinery, drink alcoholic beverages, or make important decisions for 24 hours. Be careful on stairs, as you may be unsteady on your feet. You may eat a regular diet as tolerated. Do not smoke if you are alone. IV site -- slight redness, or tenderness is normal, you can use a warm compress. If tenderness and redness increases or foul drainage occurs, please contact your M. D. Patient InstructionsGoEric ferreira MD - 04/29/2015 9:03 AM EDT Please see Recommendations in the Provation procedure report which is documented in the procedural note in E-DH. AttachmentsThe following attachments cannot be sent through Care Everywhere.EGD (UPPER ENDOSCOPY) : POST-OP (ALBANIAN)documented in this encounter Medications at Time of Discharge Medication Sig Dispensed Refills Start Date End Date aspirin 81 mg Tablet, Take 81 mg by mouth 0 Delayed Release (E.C.) daily. multivitamin (THERAGRAN) Take 1 tablet by 0 Tablet mouth daily. ascorbic acid (VITAMIN C) Take 500 mg by mouth 0 250 mg Tablet daily. omeprazole (PRILOSEC) 20 mg Take 20 mg by mouth 0 capsule 2 times daily. documented as of this encounter H&P Notes Eric Livingston MD - 04/29/2015 8:09 AM EDT Gastroenterology and Hepatology Pre-Procedure History and Physical Exam Procedure: EGD: Indication: F/up Miles's/IMC s/p EMR and RFA. Patient Active Problem List Diagnosis Code ??? 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 ASA 2 - Patient with mild systemic disease with no functional limitations Sedation Plan: deep Risks and benefits of the procedure explained to the patient. Consent signed. documented in this encounter Miscellaneous Notes Op Note - Eric Livingston MD - 04/29/2015 9:02 AM EDT [facility] [place]ative Note Patient Name: Hardik Escudero : [id number] MR#: [id number] Case Date: 04/29/2015 Surgeon: Surgeon(s) and Role: * Eric Livingston MD - Primary Preoperative diagnosis: 6 mon f/u from 10/22/14 barretts ablation CONSULT Postoperative diagnosis: * No post-op diagnosis entered * Procedure(s): UPPER GASTROINTESTINAL ENDOSCOPY,WITH BIOPSY SINGLE OR MULTIPLE Anesthesia: MAC Full procedure note is documented under the Procedure section of eDH. documented in this encounter Plan of Treatment Not on filedocumented as of this encounter Procedures Procedure Name Priority Date/Time Associated Comments Diagnosis SURGICAL PATHOLOGY Routine 04/29/2015 9:08 Result s for this REPORT AM EDT procedure are i n the results section. SPECIMEN TO PATHOLOGY Routine 04/29/2015 9:08 Res ults for this AM EDT procedure are i n the results section. SPECIMEN TO PATHOLOGY Routine 04/29/2015 9:08 Res ults for this AM EDT procedure are i n the results section. SPECIMEN TO PATHOLOGY Routine 04/29/2015 9:08 Res ults for this AM EDT procedure are i n the results section. SPECIMEN TO PATHOLOGY Routine 04/29/2015 9:08 Res ults for this AM EDT procedure are i n the results section. SPECIMEN TO PATHOLOGY Routine 04/29/2015 9:08 Res ults for this AM EDT procedure are i n the results section. SPECIMEN TO PATHOLOGY Routine 04/29/2015 9:08 Res ults for this AM EDT procedure are i n the results section. UPPER GASTROINTESTINAL 04/29/2015 8:11 6 mon f/u from ENDOSCOPY,WITH BIOPSY AM EDT 10/22/14 SINGLE OR MULTIPLE ([facility] miles s ablation 2.49) CONSULT UPPER GI ENDOSCOPY Routine 04/29/2015 7:26 Result s for this AM EDT procedure are i n the results section. documented in this encounter Results Surgical Pathology Report (04/29/2015 9:08 AM EDT) Component Value Ref Test Analysis Performed At [facility] Range Method Time Signature Surgical CERNER Pathology ? [facility] Report ? Provider: ?? ERIC LIVINGSTON ?Pt. Name: ?? KENA HARDIK ? Acc #: ?[id number] ?Pt. MRN: ?[id number] ? Col Date: ?? 5 ? /Sex: ?1945,(70 years),Male ? Rec Date: ?? 04/29/2015 ? LOC: ?4T ? SURGICAL PATHOLOGY ? DIAGNOSIS ? A - Esophagus at 27 cm, biopsy: ? - Esophageal sq uamous mucosa, negative for diagnostic abnormality. ? B - Esophagus at 30 cm, biopsy: ? - Esophageal sq uamous mucosa, negative for diagnostic abnormality. ? C - Esophagus at 33 cm, biopsy: ? - Esophageal sq uamous mucosa, negative for diagnostic abnormality. ? D - Esophagus at 35 cm, biopsy: ? - Esophageal sq uamous mucosa, negative for diagnostic abnormality. ? E - GE junction at 36 cm, biopsy: ? - Squamocolumna r junctional mucosa (cardia type) with mild chronic ? inflammation. ??There is no evidence of intestinal metaplasia. ? F - Cardia at 37 cm , biopsy: ? - Body/fundic-type mucosa, negative for d iagnostic abnormality. ? CR-0 ? 04/30/15 ? [facility] ? 04/30/15 Verified by: ? Gumaro Boyce MD ? Pathologist ? (Electronic Si gnature) ? The attending pathologist whose signature appears o n this report has ? reviewed all diagnostic slides and has edited the isabel ss and/or ? microscopic portion of the report in rendering the fi nal pathologic ? diagnosis. ? GROSS DESCRIPTION ? A - Labeled/Fixative: Biopsy esophagus at 27 cm, form clay. ? Quantity/Size: Three, averaging 0.3 x 0.1 cm. ? Tissue Description: Soft, hutchison-pink tissue, wispy. ? Sections/Processing: (T1) ? B - Labeled/Fixative: Biopsy esophagus at 30 cm, form clay. ? Quantity/Size: Four, 0.2-0.4 cm. ? Tissue Description: Soft, hutchison-pink tissue, wispy. ? Sections/Processing: (T1) ? [facility] ? Provider: ?? ERIC LIVINGSTON ?Pt. Name: ?? HARDIK ESCUDERO ? Acc #: ?[id number] ?Pt. MRN: ?[id number] ? Col Date: ?? 5 ? /Sex: ?1945,(70 years),Male ? Rec Date: ?? 04/29/2015 ? LOC: ?4T ? SURGICAL PATHOLOGY ? C - Labeled/Fixative: Biopsy esophagus at 33 cm, form clay. ? Quantity/Size: Five, 0.2-0.4 cm. ? Tissue Description: Soft, hutchison-pink tissue, wispy. ? Sections/Processing: (T2) ? D - Labeled/Fixative: Biopsy esophagus at 35 cm, form clay. ? Quantity/Size: Four, 0.3 cm. ? Tissue Description: Soft, hutchison-pink tissue, wispy. ? Sections/Processing: (T1) ? E - Labeled/Fixative: Biopsy GE Junction at 36 cm, fo rmalin. ? Quantity/Size: Two, 0.3 cm. ? Tissue Description: Soft, hutchison-pink tissue. ? Sections/Processing: (T1) ? F - Labeled/Fixative: Biopsy cardia at 37 cm, formali n. ? Quantity/Size: Four, 0.3-0.5 cm. ? Tissue Description: Soft, hutchison-pink tissue. ? Sections/Processing: (T1) ??pps ? CLINICAL INFORMATION ? Specimen Submitted: ? A - Bx esophagus at 27 cm ? B - Bx esophagus at 30 cm ? C - Bx esophagus at 33 cm ? D - Bx esophagus at 35 cm ? E - Bx ge jct at 36 cm ? F - Bx cardia at 37 cm ? Clinical History: ? Previous Miles's with IMC status post E MR and RFA, rule out residual ? Miles's ? Clinical Diagnosis: ? Same Specimen (Source) Anatomical Collection Method Collection Time Re ceived Time Location / / Volume Laterality 04/29/2015 9:08 AM EDT Eric Livingston MD PATHOLOGY/CYTOLOGY ORDERABLE S Performing Organization Address City/State/[place] [address] [facility] Specimen to Pathology (surgical or derm) (04/29/2015 9:08 AM EDT) Specimen Anatomical Collection Method Collection Time Receive d Time (Source) Location / / Volume Laterality AP Specimen 04/29/2015 9:08 AM 5 9:08 EDT AM EDT Narrative CERNER MILLENNIUM - 04/29/2015 9:08 AM E DT Specimen requisition ordered. ??Separate Pathology report to follow Eric Livingston MD PATHOLOGY/CYTOLOGY ORDERABLE S Performing Organization Address City/State/[place] [address] CERNER MILLENNIUM Specimen to Pathology (surgical or derm) (04/29/2015 9:08 AM EDT) Specimen Anatomical Collection Method Collection Time Receive d Time (Source) Location / / Volume Laterality AP Specimen 04/29/2015 9:08 AM 5 9:08 EDT AM EDT Narrative CERNER MILLENNIUM - 04/29/2015 9:08 AM E DT Specimen requisition ordered. ??Separate Pathology report to follow Eric Livingston MD PATHOLOGY/CYTOLOGY ORDERABLE S Performing Organization Address City/State/[place] [address] CERNER MILLENNIUM Specimen to Pathology (surgical or derm) (04/29/2015 9:08 AM EDT) Specimen Anatomical Collection Method Collection Time Receive d Time (Source) Location / / Volume Laterality AP Specimen 04/29/2015 9:08 AM 5 9:08 EDT AM EDT Narrative CERNER MILLENNIUM - 04/29/2015 9:08 AM E DT Specimen requisition ordered. ??Separate Pathology report to follow Eric Livingston MD PATHOLOGY/CYTOLOGY ORDERABLE S Performing Organization Address City/State/[place] [address] CERNER MILLENNIUM Specimen to Pathology (surgical or derm) (04/29/2015 9:08 AM EDT) Specimen Anatomical Collection Method Collection Time Receive d Time (Source) Location / / Volume Laterality AP Specimen 04/29/2015 9:08 AM 5 9:08 EDT AM EDT Narrative CERNER MILLENNIUM - 04/29/2015 9:08 AM E DT Specimen requisition ordered. ??Separate Pathology report to follow Eric Livingston MD PATHOLOGY/CYTOLOGY ORDERABLE S Performing Organization Address City/State/ZIP Code Phon e Number [address] CERNER KENNEDIENNIUM Specimen to Pathology (surgical or derm) (04/29/2015 9:08 AM EDT) Specimen Anatomical Collection Method Collection Time Receive d Time (Source) Location / / Volume Laterality AP Specimen 04/29/2015 9:08 AM 5 9:08 EDT AM EDT [facility] [facility] - 04/29/2015 9:08 AM E DT Specimen requisition ordered. ??Separate Pathology report to follow Eric Livingston MD PATHOLOGY/CYTOLOGY ORDERABLE S Performing Organization Address City/State/ZIP Code Phon e Number [address] CERNER KENNEDIENNIUM Specimen to Pathology (surgical or derm) (04/29/2015 9:08 AM EDT) Specimen Anatomical Collection Method Collection Time Receive d Time (Source) Location / / Volume Laterality AP Specimen 04/29/2015 9:08 AM 5 9:08 EDT AM EDT [facility] - 04/29/2015 9:08 AM E DT Specimen requisition ordered. ??Separate Pathology report to follow Eric Livingston MD PATHOLOGY/CYTOLOGY ORDERABLE S Performing Organization Address City/[facility]/ZIP [place] [address] CERNER MILLENNIUM UPPER GI ENDOSCOPY (04/29/2015 7:26 AM EDT) Component Value Ref Test Analysis Performed At [facility] Range Method Time Signature UPPER GI [facility] ENDOSCOPY Endoscopy Patient Name: Hardik Escudero ? Procedure Date: 04/29/2015 7:26 AM ? Date of : 1945 ? Age: 70 ? Order #: [id number] ? Procedure: ? Upper GI endoscopy Indications: ? Follow-up of Miles's esophagus, ? 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 previous ablation treatment o f ? Miles's esophagus, Follow-u p of ? endoscopic mucosal resection of ? Miles's esophagus, IMC Providers: ? Eric Livingston MD, Sandy Little , ? RN, Catie Lemus, Tomas Gilmore MD: ?Victor M Jeff, DO Medicines: ? Propofol per Anesthesia Complications: ? No immediate complications. Procedure: ? Pre-Anesthesia Assessment: ? - Prior to the procedure, a H istory ? and Physical was performed, a nd ? patient medications, allergie s and ? sensitivities were reviewed. The ? patient's tolerance of previo us ? anesthesia was reviewed. ? - The risks and benefits of t he ? procedure and the sedation op tions ? and risks were discussed with the ? patient. All questions were a nswered ? and informed consent was obta ined. ? - ASA Grade Assessment: II - A ? patient with mild systemic di sease. ? - Using IV propofol under the ? supervision of an anesthesiol ogist ? was determined to be medicall y ? necessary for this procedure based on ? age 65 or older and prolonged ? procedure requiring deep iva tion. ? The procedure, indications, b enefits, ? risks and alternatives were e xplained ? to the patient. Specifically ? discussed were potential ? complications including, but not ? limited to, bleeding, perfora tion, ? infection, missing a cancer, and ? adverse medication reactions. The ? Endoscope was introduced thro ugh the ? mouth, and advanced to the se cond ? part of duodenum. The patient ? tolerated the procedure well. The ? patient tolerated the procedu re well. ? Findings: ? The Z-line was irregular in contour and was found 36 ? cm from the incisors. There were no suspicious areas ? by white light or NBI. Volumetric Laser ? Endomicroscopy (VLE) was performed by inserting the ? imaging catheter (20 mm balloon) through the working ? channel of the endoscope. The VLE imaging probe was ? positioned so that the stomach tissue (cardia) was ? seen in the distal portion of the VLE scan. The GEJ ? location was identified in the VLE scan, and ? correlated to the endoscopic position of the GEJ (36 ? cm from the incisors). The VLE scan was continuously ? imaged for 6 cm, scanning the esophagus to a depth of ? 3 mm in two stacked scans. The VLE scan was reviewed ? and areas of suspicion noted and correlated to the ? anatomic location seen on endoscopy so that ? suspicious areas could be further examined by biopsy ? and histology. Suspicious areas were not seen with ? the exception of relatively thickened neosquamous ? epithelium.. Biopsies were taken with a cold forceps ? for histology in 4 quadrants from cardia at 37 cm, GE ? Jct at 36 cm, and esophagus at 35 cm, 33 cm, 30 cm ? and 27 cm. ? A medium-sized hiatus hernia was present (4 cm). ? Otherwise normal stomach including retroflex view of ? cardia and fundus. ? The examined duodenum was normal except for a large ? duodenal diverticulum. ? Impression: ?- No evidence for residual Miles 's ? by white light, NBI and VLE-b iopsies ? taken. Recommendation: ?- Await pathology results. ? - Repeat the upper endoscopy in 1 ? year for follow-up of Miles 's ? ablation pending pathology. ? Eric Livingston MD 04/29/2015 9:21 AM This report has been signed electronically. Number of Addenda: 0 Note Initiated On: 04/29/2015 7:26 AM Specimen (Source) Anatomical Collection Method Collection Time Re ceived Time Location / / Volume Laterality 04/29/2015 7:26 AM EDT Victor M Jeff DO GENERAL SURGICAL ORDERABLES Performing Organization Address City/State/ZIP Code Phon e Number [facility] documented in this encounter Visit Diagnoses Not on filedocumented in this encounter Active and Recently Administered Medications Care Teams Apiculture Teacher Relationship Specialty Start Date End Date Victor M Jeff DO PCP - General 03/14/[address] [place] [address] documented as of this encounter
--- OUTSIDE RECORDS SUMMARY | 2022-08-10 23:23 | XMS_ITS | Encounter Summary ---
:1945 Author Organization [facility] Address [address] [address] Care Team Providers Name Role Phone Victor M Jeff DO Primary Care Provider Encounter Details Date Type Department Care Team Description 04/29/2015 Anesthesia Event Gastroenterology at [facility] Shaji Li MD [facility] [place] [address] [facility] Niraj Vasquez CRNA [facility] [place] [place] [address] [place] [address] Anesthesia Record Procedure Summary Procedure Name Responsible Anesthesia Start Anesthesia Stop Anesthesiologist Time Time UPPER GASTROINTESTINAL Shaji Li MD 04/29/15 0811 0859 ENDOSCOPY,WITH BIOPSY SINGLE OR MULTIPLE ([facility] 2.49) Events Date Time Event Comment 04/29/2015 0758 0811 AN Verify 0811 Start 0811 An Start Data 0814 An Induction 0814 Anesthesia Ready 0853 an stop data 0859 Stop Name Total IV Lidocaine 50 mg Propofol 100 mg Propofol INF 684.79 mg Lactated Ringers 500 mL Agents Name O2 O2 Auxiliary Flowmeter 1 Blood No blood administrations on file. Lines, Drains, and Airways Type Details Placement Removal PIV 04/29/15; 0742; metacarpal 04/29/15 0742 by Worr ell, 04/29/15 0942 by William, vein right (top of hand); Suresh Rivera, RN Cameron Santana, POOL [id number] catheter system; 20 gauge; CWorrell; distraction; 04/29/15; 0942 documented in this encounter Social History Tobacco Use Types Packs/Day Years Used Date Smoking Tobacco: Every Day Alcohol Use Standard Drinks/Week Comments No 0 (1 standard drink = 0.6 oz pure alcoho l) hunting season Sex Assigned at Date Recorded Not on file documented as of this encounter OR Notes Anesthesia Postprocedure Evaluation - Shaji Li MD - 04/29/2015 11:08 AM EDT Patient: Hardik Arevalo Procedure(s) Performed: Procedure(s): UPPER GASTROINTESTINAL ENDOSCOPY,WITH BIOPSY SINGLE OR MULTIPLE Actual Anesthetic: MAC Patient location: PACU Post-op pain: Adequate analgesia Post-op nausea: no nausea or vomiting Last Vitals: Filed Vitals: 04/29/15 0915 BP: 130/73 Pulse: 65 Temp: Resp: Post-op cardiovascular and respiratory status: is stable Level of consciousness: awake, alert and oriented Complications: no apparent complications and tolerated the procedure well Fluid Status: normal Anesthesia Preprocedure Evaluation - Shaji Li MD - 04/29/2015 7:18 AM EDT Pre-Anesthesia Evaluation for: Hardik Arevalo a 70 y.o. male. Procedure(s): EGD, UPPER GI ENDOSCOPY Patient Active Problem List Diagnosis ??? Intramucosal esophageal cancer No past medical history on file. Past Surgical History Procedure Laterality Date ??? Pro endoscopic us exam, esoph 03/19/2013 UPPER EUS- ENDOSCOPIC ULTRASOUND performed by Eric Livingston MD at [facility] ENDOSCOPY ??? Pro upper gi endoscopy, diagnostic 08/26/2013 EGD, UPPER GI ENDOSCOPY performed by Eric Livingston MD at [facility] ENDOSCOPY ??? Pro upper gi endoscopy, diagnostic 12/10/2013 EGD, UPPER GI ENDOSCOPY performed by Eric Livingston MD at [facility] ENDOSCOPY ??? Pro upper gi endoscopy, biopsy 03/24/2014 EGD WITH BIOPSY performed by Eric Livingston MD at [facility] ENDOSCOPY ??? Pro upper gi endoscopy, biopsy N/A 10/22/2014 EGD WITH BIOPSY performed by Eric Livingston MD at [facility] ENDOSCOPY History Substance Use Topics ??? Smoking status: Current Every Day Smoker ??? Smokeless tobacco: Not on file ??? Alcohol Use: No Comment: hunting season History Drug Use No No Known Allergies Medications: MAR and/or home medications have been reviewed. Physical Exam: There were no vitals filed for this visit. There is no weight on file to calculate BMI. Airway Assessment: Mallampati: II TM distance: >3 FB Neck ROM: full Cardiovascular Assessment: Pulmonary Assessment: Dental Assessment: Comment: Pt has extremely poor dentition, but has close [facility] follow-[facility], [facility] IV access: Peripheral line Anesthesia Plan: ASA 3 MAC, with a(n) intravenous induction Mr. Arevalo is a 69 year old male with PMHx of tobacco abuse and intramucosal esophageal cancer who isscheduled for six month follow-up after a Lin's ablation. Pt has NKDA. Plan for MAC. Risks were discussed at length, and all questions and concerns were addressed. Consentwas obtained, and the appropriate paperwork was placed in the patient's chart. Region - Other Informed Consent: Anesthetic plan and risks discussed with patient and spouse. Plan discussed with OVEN TENDER. [facility]. Assessment: documented in this encounter Plan of Treatment Not on filedocumented as of this encounter Visit Diagnoses Not on filedocumented in this encounter Administered Medications Inactive Administered Medications - up to 3 most recent administrations Medication Order MAR Action Action Date Dose Rate Site lactated ringers infusion New Bag 04/29/2015 8:11 AM EDT CONTINUOUS PRN, Starting on Leelee 04/29/15 at 0811, Until Leelee 04/29/15 at 0859, Anesthesia Intra-op lidocaine (PF) (XYLOCAINE) 100 mg/5 mL (2 %) Given 5 8:14 AM EDT 50 mg injection PRN, Starting on Leelee 04/29/15 at 0814, Until Leelee 04/29/15 at 0859, Anesthesia Intra-op, Routine propofol (DIPRIVAN) 10 mg/mL bolus injection Given 5 8:42 AM EDT 30 mg (Anesthesia) PRN, Starting on Leelee 04/29/15 at 0814, Until Leelee 04/29/15 at 0859, Anesthesia Intra-op Given 04/29/2015 8:14 AM EDT 70 mg propofol (DIPRIVAN) Rate/Dose 04/29/2015 8:49 175 mcg/kg/min 95.2 mL /hr infusion Change AM EDT CONTINUOUS PRN, Starting on Leelee 04/29/15 at 0812, Until Leelee 04/29/15 at 0859, Anesthesia Intra-op, Routine Rate/Dose Change 04/29/2015 8:42 AM EDT 150 mcg/kg/min 81.6 mL/hr Rate/Dose Change 04/29/2015 8:31 AM EDT 125 mcg/kg/min 68 mL/hr documented in this encounter Care Teams Electrical Logging Operator Relationship Specialty Start Date End Date Victor M Jeff DO PCP - General 03/14/[address] [place] [address] documented as of this encounter
--- OUTSIDE RECORDS SUMMARY | 2022-08-10 23:23 | XMS_ITS | Encounter Summary ---
:1945 Author Organization [facility] [place] [address] Care Team Providers Name Role Phone Victor M Jeff DO Primary Care Provider Reason for Visit Reason Comments Medication Refill Encounter Details Date Type Department Care Team Description 02/02/2015 Refill Gastroenterology at [facility] Eric Livingston MD [facility] [place] [address] GASTROENTEROLOGY DEPT. [phone] [place], [place] [address] (Wo rk) Social History Tobacco Use Types Packs/Day Years Used Date Smoking Tobacco: Every Day Alcohol Use Standard Drinks/Week Comments No 0 (1 standard drink = 0.6 oz pure alcoho l) hunting season Sex Assigned at Date Recorded Not on file documented as of this encounter Plan of Treatment Not on filedocumented as of this encounter Visit Diagnoses Not on filedocumented in this encounter Care Teams Sales Department Manager Relationship Specialty Start Date End Date Victor M Jeff DO PCP - General 03/14/[address] [place] [address] documented as of this encounter
--- OUTSIDE RECORDS SUMMARY | 2022-08-10 23:23 | XMS_ITS | Encounter Summary ---
:1945 Author Organization [facility] [place] [address] Care Team Providers Name Role Phone Victor M Jeff DO Primary Care Provider Encounter Details Date Type Department Care Team Description 10/22/2014 Anesthesia Event [place] [facility] [place]by, [facility] [place] [address] [facility] [phone] DR ANESTHESIOLOGY [place], [place] [address] Anesthesia Record Procedure Summary Procedure Name Responsible Anesthesia Start Anesthesia Stop Time Anesthesiologist Time EGD WITH BIOPSY Tiara Irby MD 10/22/14 1008 10/22/14 1 115 (WRVU 2.49) (Trunk) Events Date Time Event Comment 10/22/2014 0947 1008 AN Verify 1008 Start 1011 An Start Data 1013 An Induction 1015 Anesthesia Ready 1022 Procedure Start 1108 Procedure Stop 1115 an stop data 1115 Stop Name Total IV Lidocaine 60 mg Propofol 70 mg Propofol INF 791.7 mg PHENYLephrine 80 mcg Lactated Ringers 500 mL Agents Name O2 Auxiliary Flowmeter 1 Blood No blood administrations on file. Lines, Drains, and Airways Type Details Placement Removal PIV 10/22/14; 0911; 20 gauge; 10/22/14 0911 by Db, 10/22/14 1203 by Pope distraction; basilic vein POOL Manning Kerri L, RN (medial side of arm), left; 10/22/14; 1203 documented in this encounter Social History Tobacco Use Types Packs/Day Years Used Date Smoking Tobacco: Every Day Alcohol Use Standard Drinks/Week Comments No 0 (1 standard drink = 0.6 oz pure alcoho l) hunting season Sex Assigned at Date Recorded Not on file documented as of this encounter OR Notes Anesthesia Postprocedure Evaluation - Tiara Irby MD - 10/22/2014 1:04 PM EST Patient: Hardik Arevalo Procedure(s) Performed: Procedure(s): EGD WITH BIOPSY Actual Anesthetic: MAC Patient location: PACU; Mr. Arevalo met discharge criteria from the endoscopy area without issue. Post-op pain: Adequate analgesia Post-op nausea: no nausea or vomiting Last Vitals: Filed Vitals: 10/22/14 1130 BP: 104/67 Pulse: 66 Resp: 20 Post-op cardiovascular and respiratory status: is stable Level of consciousness: awake, alert and oriented Complications: no apparent complications and tolerated the procedure well Fluid Status: normal Anesthesia Preprocedure Evaluation - Tiara Irby MD - 10/21/2014 4:24 PM EST Pre-Anesthesia Evaluation for: Hardik Arevalo a 69 y.o. male. Procedure(s): EGD, UPPER GI ENDOSCOPY Patient Active Problem List Diagnosis ??? Intramucosal esophageal cancer No past medical history on file. Past Surgical History Procedure Laterality Date ??? Endoscopic us exam, esoph 03/19/2013 UPPER EUS- ENDOSCOPIC ULTRASOUND performed by Eric Livingston MD at [facility] ENDOSCOPY ??? Upper gi endoscopy, diagnostic 08/26/2013 EGD, UPPER GI ENDOSCOPY performed by Eric Livingston MD at [facility] ENDOSCOPY ??? Upper gi endoscopy, diagnostic 12/10/2013 EGD, UPPER GI ENDOSCOPY performed by Eric Livingston MD at [facility] ENDOSCOPY ??? Upper gi endoscopy, biopsy 03/24/2014 EGD WITH BIOPSY performed by Eric Livingston MD at [facility] ENDOSCOPY History Substance Use Topics ??? Smoking [...] close dental follow-up, most recently last [place] [facility] [place]: IV access: Peripheral line Anesthesia Plan: [...] with patient and spouse. Plan discussed with [facility]. [facility] [place]. Assessment: documented in this encounter Plan of Treatment Not on filedocumented as of this encounter Visit Diagnoses Not on filedocumented in this encounter Administered Medications Inactive Administered Medications - up to 3 most recent administrations Medication Order MAR Action Action Date Dose Rate Site lactated ringers infusion New Bag 10/22/2014 10:08 AM EST CONTINUOUS PRN, Starting on Leelee 10/22/14 at 1008, Until Leelee 10/22/14 at 1115, Anesthesia Intra-op lidocaine (PF) (XYLOCAINE) 100 mg/5 mL (2 %) Given 08/2015 10:12 AM EST 60 mg injection PRN, Starting on Leelee 10/22/14 at 1012, Until Leelee 10/22/14 at 1115, Anesthesia Intra-op, Routine PHENYLephrine HCl in NS (PF) Given 10/22/2014 10:56 AM EST 80 mc g (NGUYỄN-SYNEPHRINE) 0.8 mg/10 mL (80 mcg/mL) injection Syrg PRN, Starting on Leelee 10/22/14 at 1056, Until Leelee 2/12/15 at 1115, Anesthesia Intra-op, Routine propofol (DIPRIVAN) 10 mg/mL bolus injection Given 08/2015 10:24 AM EST 20 mg (Anesthesia) PRN, Starting on Leelee 10/22/14 at 1018, Until Leelee 10/22/14 at 1115, Anesthesia Intra-op Given 10/22/2014 10:18 AM EST 50 mg propofol (DIPRIVAN) Rate/Dose 10/22/2014 10:50 150 mcg/kg/min 78.3 m L/hr infusion Change AM EST CONTINUOUS PRN, Starting on Leelee 10/22/14 at 1013, Until Leelee 10/22/14 at 1115, Anesthesia Intra-op, Routine Rate/Dose Change 10/22/2014 10:39 AM EST 200 mcg/kg/min 104.4 mL/hr New Bag 10/22/2014 10:13 AM EST 150 mcg/kg/min 78.3 mL/hr documented in this encounter Care Teams Independent Trader Relationship Specialty Start Date End Date Victor M Jeff DO PCP - General 03/14/[address] [place] [address] documented as of this encounter
--- OUTSIDE RECORDS SUMMARY | 2022-08-10 23:23 | XMS_ITS | Encounter Summary ---
:1945 Author Organization [facility] [place] [address] Care Team Providers Name Role Phone Victor M Jeff DO Primary Care Provider Encounter Details Date Type Department Care Team Description 05/07/2019 External Results Medical Records Provider, [place] [address] Social History Tobacco Use Types Packs/Day Years [...] encounter Procedures Procedure Name Priority Date/Time Associated Diagnosis Comme nts SURGICAL PATHOLOGY Routine 05/07/2019 Results f or this SCAN procedure are i n the results section . documented in this encounter Results Scan Doc: Surgical Pathology (05/07/2019) Narrative This result has an attachment that is no t available. Historical Provider MD BERNAL MGR SCAN EXT ORDR/RSLT documented in this encounter Visit Diagnoses Not on filedocumented in this encounter Care Teams Import/Export Analyst Relationship Specialty Start Date End Date Victor M Jeff DO PCP - General 03/14/[address] [place] [address] documented as of this encounter
--- OUTSIDE RECORDS SUMMARY | 2022-08-10 23:23 | XMS_ITS | Encounter Summary ---
:1945 Author Organization [facility] [place] [address] Care Team Providers Name Role Phone Victor M Jeff DO Primary Care Provider Reason for Visit Reason Comments Medication Refill Encounter Details Date Type Department Care Team Description 09/08/2021 Refill Gastroenterology at [facility] [place] Eric Livingston, Lin's esophagus [facility] [place] [address] [facility] [phone] GASTROENTEROLOGY DEPT. 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
--- OUTSIDE RECORDS SUMMARY | 2022-08-10 23:23 | XMS_ITS | Encounter Summary ---
:1945 Author Organization [facility] Address [address] [place] [address] Care Team Providers Name Role Phone TomerVictor M alvarado Primary Care Provider Reason for Visit Auth/Cert Specialty Diagnoses / Procedures Referred By Contact Refer red To Contact Diagnoses barrets ablation Procedures PRO UPPER GI ENDOSCOPY, DIAGNOSTIC EGD, UPPER GI ENDOSCOPY Referral ID Status Reason Start Date Expiration Date Visits Requ ested Visits Authorized [id number] 1 1 Encounter Details Date Type Department Care Team Description 05/21/2018 Hospital Encounter [place] [facility] [place] Livingston, [facility] [place] [address] [facility] [phone] [facility] [place], [place] [address] Social History Tobacco Use Types Packs/Day Years Used Date Smoking Tobacco: Every Day Cigarettes 1 Smokeless Tobacco: Never Alcohol Use Standard Drinks/Week Comments No 0 (1 standard drink = 0.6 oz pure alcoho l) hunting season Sex Assigned at Date Recorded Not on file documented as of this encounter Last Filed Vital Signs Vital Sign Reading Time Taken Comments Blood Pressure 146/69 05/21/2018 5:00 PM EDT Pulse 74 05/21/2018 4:39 PM EDT Temperature - - Respiratory Rate 20 05/21/2018 4:39 PM EDT Oxygen Saturation 99% 05/21/2018 5:00 PM EDT Inhaled Oxygen Concentration - - Weight - - Height - - Body Mass Index - - documented in this encounter Discharge Instructions Discharge InstructionsHarder, Eridana G, RN - 05/21/2018 4:40 PM EDT UPPER GI ENDOSCOPY WHAT TO EXPECT AFTER THE PROCEDURE After the test you may feel a little more gassy or bloated than usual, this is normal. ACTIVITY Because of the sedation that you received Your judgement and reaction time are affected ?? Go home and rest quietly for the remainder of the day. You may resume your normal activities tomorrow. ?? Change from one position to the next slowly. You may lose your balance unexpectedly Be careful on stairs, as you may be unsteady on your feet. FOR THE NEXT 24 HRS ?? DO NOT DRIVE OR OPERATE ANY MACHINERY ?? DO NOT DRINK ALCOHOLIC BEVERAGES ?? DO NOT SIGN LEGAL DOCUMENTS ?? If you are a smoker: DO NOT SMOKE WHILE YOU ARE ALONE Diet ?? Start by eating small portions of foods that ordinarily will not upset your stomach. Be gentle with what you choose to start with. ?? Drink plenty of fluids ( unless otherwise told not to) Medications You may have a mild sore throat. Ice chips, popsicles, over the counter throat lozenges or spray may help numb your throat. This procedure should not cause a fever. IV SITE-- slight redness or tenderness is normal, you can use warm compresses if you get concerned.If the tenderness +/or redness increases or foul drainage and a red streak occurs, please contact your PCP immediately. WHEN SHOULD YOU CALL FOR HELP? Call 911 anytime you think that you need emergency care. For example, call if: You passed out (lost consciousness). You cough up blood. You vomit blood or what looks like coffee grounds. You pass maroon or very bloody stools. Call your healthcare provider or seek immediate medical attention if: You have trouble swallowing. You have belly pain. Your stools are black or tarlike or have streaks of blood. You are sick to your stomach or cannot keep fluids down. Watch closely for changes in your health, and be sure to contact your doctor IF Your throat still hurts after a day or two You do not get better as expected. Sunday-Sunday Same Day Endo [phone] 7a-8p Otherwise contact [phone] and ask to speak to the calciminer inspector production plastic parts Follow-up care is a easley part of your treatment and safety. Be sure to make and go to all appointments, and call your doctor if you are having problems. Instructions have been reviewed and patient expresses understanding Patient InstructionsGoEric ferreira MD - 05/21/2018 4:47 PM EDT Please see Recommendations in the Provation procedure report which is documented in the procedural note in E-DH. documented in this encounter Medications at Time of Discharge Medication Sig Dispensed Refills Start Date End Date aspirin 81 mg Tablet, Take 81 mg by mouth 0 Delayed Release (E.C.) daily. multivitamin (THERAGRAN) Take 1 tablet by 0 Tablet mouth daily. ascorbic acid (VITAMIN Take 500 mg by 0 C) 250 mg Tablet mouth daily. omeprazole (PRILOSEC) 20 Take 20 mg by mouth 0 mg capsule 2 times daily. 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 Cigarette smoker F17.210 ??? Gastroesophageal reflux K21.9 ??? Hyperlipidemia E78.5 ??? H/O colonoscopy with polypectomy Z98.890, Z86.010 ??? COPD (chronic obstructive pulmonary disease) J44.9 HISTORY OF PRESENT ILLNESS Hardik Arevalo is a 73 y.o. man who presents for EGD evaluation given a history of BE with intramucosal cancer. MEDICATIONS No current facility-administered medications on file prior to encounter. Current Outpatient Prescriptions on File Prior to Encounter Medication Sig Dispense Refill ??? omeprazole (PRILOSEC) 40 mg Capsule, Delayed Release(E.C.) TAKE 1 CAPSULE TWICE A DAY 180 capsule 2 ??? aspirin 81 mg Tablet, Delayed Release (E.C.) Take 81 mg by mouth daily. ??? multivitamin (THERAGRAN) Tablet Take 1 tablet by mouth daily. ??? ascorbic acid (VITAMIN C) 250 mg Tablet Take 500 mg by mouth daily. ??? omeprazole (PRILOSEC) 20 mg capsule Take 20 mg by mouth 2 times daily. PHYSICAL EXAM: Blood pressure 157/87, pulse 78, resp. rate 20. GEN: Alert, cooperative. Pleasant. In NAD Rest per anesthesia documentation RECENT LABS No results found for this or any previous visit (from the past 24 hour(s)). ASSESSMENT AND PLAN Hardik Arevalo is a 73 y.o. man who presents for endoscopic evaluation. Risks extensively discussedincluding bleeding, infection, reaction to anesthesia, perforation, pancreatitis (if applicable), bile duct injury (if applicable), missing a cancer (if applicable) and/or other unforseen complication.Consent signed and patient well informed of the risks of the procedure. documented in this encounter Miscellaneous Notes Op Note - Eric Livingston MD - 05/21/2018 4:46 PM EDT [facility]ative Note Patient Name: Hardik Arevalo : [id number] MR#: [id number] Case Date: 05/21/2018 Surgeon: Surgeon(s) and Role: * Eric Livingston MD - Primary * Keith Stanton MD - Fellow Preoperative diagnosis: barrets ablation Postoperative diagnosis: * No post-op diagnosis entered * Procedure(s) (LRB): EGD WITH BIOPSY (WRVU 2.49) (N/A) Anesthesia: MAC Full procedure note is documented under the Procedure section of eDH. documented in this encounter Plan of Treatment Not on filedocumented as of this encounter Procedures Procedure Name Priority Date/Time Associated Diagnosis Comme nts SURGICAL PATHOLOGY Routine 05/21/2018 4:33 PM Res ults for this REPORT EDT procedure are i n the results section. SPECIMEN TO Routine 05/21/2018 4:33 PM Results f or this PATHOLOGY EDT procedure are i n the results section. SPECIMEN TO Routine 05/21/2018 4:33 PM Results f or this PATHOLOGY EDT procedure are i n the results section. UPPER GI ENDOSCOPY Routine 05/21/2018 4:15 PM Res ults for this EDT procedure are i n the results section. EGD WITH BIOPSY 05/21/2018 4:10 PM barrets ablation (WRVU 2.49) EDT documented in this encounter Results Surgical Pathology Report (05/21/2018 4:33 PM EDT) Component Value Ref Test Analysis Performed At [facility] Range Method Time Signature Surgical [id number] ? Location: ; [facility]; [facility] Report The signing pathologist has (i) examined the relevant preparation(s) for the [facility] specimen(s) and (ii) rendered or confirmed the diagnosis(es) . HOSPITAL LABORATORY . ? Addendum ADDENDUM DISCUSSION A [facility] 3D report (case rohith delvalle [id number] dated 05/29/2018) on specimen C has been received. For the full text of the [facility] S 3D report(s), please refer to Non- Documentation Pathology in the electronic health record (eDH). Electronically signed by: ??Thai Lockett MD, I Verified: ??06/10/2018 ?Pathologist Performed at: ??-[facility] Dept. of Pathology, [place], [place] ?Surgic al Pathology DIAGNOSIS A - GE junction 38 cm, ?? biopsy: Esophageal squamous mucosa within normal limits. B - GE junction 39 cm, ?? biopsy: Esophageal squamous mucosa within normal limits. Gastric body/fundic-type mucosa with mild chronic inflammati on. No intestinal metaplasia or dysplasia seen. C - WATS SPECIMEN - Esophagus, distal GE junction 38-39cm, b iopsy: This specimen has been sent for WATS proprietary test at the request of the ordering provider. Results will be reported in an addendum. Electronically signed by: ??Melyssa Wisdom MD Verified: ??05/27/2018 ?Pathologist Performed at: ??-[facility] Dept. of Pathology, [place], [place] CLINICAL INFORMATION Specimen Submitted: A - GE junction at 38cm B - GE junction at 39cm C - WATS SPECIMEN - Esophagus, distal GE junction 38-39cm, b iopsy Clinical History and Diagnosis: History of Lin 's with dysplasia S/P treatment SPECIMEN PROCESSING A - Labeled/Fixative: GE junction 38 cm, formalin. Quantity/Size: Four, ranging from 0.2-0.4 cm. Tissue Description: Soft, hutchison-white and translucent tissue. Sections/Processing: (T1) B - Labeled/Fixative: GE junction 39 cm, formalin. Quantity/Size: Four, ranging from 0.2-0.4 cm. Tissue Description: Soft to firm, hutchison-white to hutchison-pink tiss ue. Sections/Processing: (T1) ??apb Specimen (Source) Anatomical Collection Method Collection Time Re ceived Time Location / / Volume Laterality 05/21/2018 4:33 PM EDT Keith Stanton MD PATHOLOGY/CYTOLOGY ORDERABLE S Performing Organization Address City/[facility]/[place] [address] Specimen to Pathology (05/21/2018 4:33 PM EDT) Specimen Anatomical Collection Method Collection Time Receive d Time (Source) Location / / Volume Laterality AP Specimen 05/21/2018 4:33 PM 8 4:33 EDT PM EDT Narrative [facility] - 05/21/2018 4:33 PM EDT Specimen requisition ordered. ??Separate Pathology report to follow Eric Livingston MD PATHOLOGY/CYTOLOGY ORDERABLE S Performing Organization Address City/[facility]/[place] [address] Specimen to Pathology (05/21/2018 4:33 PM EDT) Specimen Anatomical Collection Method Collection Time Receive d Time (Source) Location / / Volume Laterality AP Specimen 05/21/2018 4:33 PM 8 4:33 EDT PM EDT Narrative [facility] - 05/21/2018 4:33 PM EDT Specimen requisition ordered. ??Separate Pathology report to follow Eric Livingston MD PATHOLOGY/CYTOLOGY ORDERABLE S Performing Organization Address City/State/[place] [address] UPPER GI ENDOSCOPY (05/21/2018 4:15 PM EDT) Component Value Ref Test Analysis Performed At [facility] Range Method Time Signature UPPER GI [facility] ENDOSCOPY Endoscopy Procedure Date: 05/21/2018 4:15 PM ? Patient Name: Hardik Arevalo ? Date of : 1945 ? Age: 73 ? Order #: [id number] ? Instrument Name: [id number] ? Procedure: ? Upper GI endoscopy Indications: ? Follow-up of Lin's esophagus, ? 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 Eric Livingston MD, Keith Stanton, ? Gilda Roa, Syeda Gilmore MD: ?Victor M Jeff, DO Medicines: ? Monitored Anesthesia Care Complications: ? No immediate complications. Procedure: ? [...] informed consent was obta ined. ? - Patient identification and proposed ? procedure were verified prior to the ? procedure by the physician, ethan borrego ? nurse, the manager area and th e ? overhead crane technician. The procedure was ? verified in the pre-procedure area in ? the procedure room. ? - Pre-procedure physical exam ination ? revealed no contraindications to ? sedation. ? - ASA Grade Assessment: III - A ? patient with severe systemic disease. ? The procedure, indications, b enefits, ? risks and alternatives were e xplained ? to the patient. Specifically ? discussed were potential ? complications including, but not ? limited to, bleeding, perfora tion, ? infection, missing a cancer, and ? adverse medication reactions. The ? Endoscope was introduced thro h the ? mouth, and advanced to the se cond ? part of duodenum. The patient ? tolerated the procedure well. The ? upper GI endoscopy was accomp lished ? without difficulty. The patie nt ? tolerated the procedure well. ? Findings: ? The esophagus and gastroesophageal junction were ? examined with white light and narrow band imaging ? (NBI). There was no visual evidence of Lin's ? esophagus. Mucosa was biopsied with a cold forceps ? for histology randomly 1 cm proximal to the GE ? junction and at the gastroesophageal junction. A ? total of 2 specimen bottles were sent to pathology. ? Wide Area Transepithelial Sampling (WATS-3D [place] ? Biopsy) was performed for histology 1 cm proximal to ? the GE junction and at the gastroesophageal junction. ? One specimen brush kit was sent for Computer-Assisted ? 3-Dimensional analysis. Verification of patient ? identification for the specimen was done by the ? physician, nurse and overhead crane technician using the patient's ? name, date and medical record number. Estimated ? blood loss: none. ? The Z-line was irregular and was found 39 cm from the ? incisors. ? A 4 cm hiatal hernia was present. ? No other significant abnormalities were identified in ? a careful examination of the stomach. ? A large diverticulum was found in the second portion ? of the duodenum. ? The exam of the duodenum was otherwise normal. ? Moderate Sedation: ? Not applicable - See Anesthesia documentation Impression: ?- There is no endoscopic evidence of ? Lin's esophagus. Biopsied . ? WATS-3D brush biopsy specimen s ? obtained. ? - Z-line irregular, 39 cm fro m the ? incisors. ? - 4 cm hiatal hernia. ? - Duodenal diverticulum. Recommendation: ?- Discharge patient to home (with ? escort). ? - Advance diet as tolerated. ? - Continue present medication s. ? - Await pathology results. ? - Repeat upper endoscopy in 2 years ? for surveillance based on pat hology ? results. ? Procedure Code(s): ?? --- Professional --- ? 46257, Esophagogastroduodenos copy, ? flexible, transoral; with bio psy, ? single or multiple CPT copyright 2017 [employer]. All rights reserved. The codes documented in this report are preliminary and upon location and measurement technician review may be revised to meet current compliance requirements. Attending Participation: ? I was present and participated during the entire ? procedure, including non-easley portions. ? Eric Livingston MD 05/21/2018 4:48:19 PM This report has been signed electronically. Number of Addenda: 0 Note Initiated On: 05/21/2018 4:15 PM Specimen (Source) Anatomical Collection Method Collection Time Re ceived Time Location / / Volume Laterality 05/21/2018 4:15 PM EDT Victor M Jeff DO GENERAL SURGICAL ORDERABLES Performing Organization Address City/State/ZIP Code Phon e Number [facility] documented in this encounter Visit Diagnoses Not on filedocumented in this encounter Active and Recently Administered Medications Times are shown in EDT. Continuous Medication Order 05/19/2018 05/20/2018 05/21/2018 lactated Ringers infusion (CANCELED) 1546 (New Bag - Provider: Renetta Dumont CRNA)1632 (Anesthesia Volume Adjustment - Provider: Renetta Dumont CRNA) 100 mL/hr, at 100 mL/hr, Intravenous, CO NTINUOUS, Starting 05/21/18 at 1615, Until 05/21/18 at 1702, Endo (Day of Procedure) documented in this encounter Care Teams Trading Assistant Relationship Specialty Start Date End Date Victor M Jeff DO PCP - General 03/14/[address] [place] [address] documented as of this encounter
--- OUTSIDE RECORDS SUMMARY | 2022-08-10 23:23 | XMS_ITS | Encounter Summary ---
:1945 Author Organization [facility] [place] [address] Care Team Providers Name Role Phone TomerVictor M alvarado Primary Care Provider Encounter Details Date Type Department Care Team Description 04/29/2015 Hospital Encounter [facility] [place] [address] [place] [address] [facility] [place], [place] [address] Social History Tobacco Use Types [...] through Care Everywhere.EGD (UPPER ENDOSCOPY) : POST-OP (BELARUSIAN)documented in this encounter Medications at Time of [...] Livingston MD - 04/29/2015 9:02 AM EDT [facility] Operative Note Patient Name: Hardik Escudero : [id number] MR#: [id number] Case Date: 04/29/2015 Surgeon: Surgeon(s) and Role: [...] Component Value Ref Test Analysis Performed At [facility] Range Method Time Signature Surgical CERNER Pathology ? [facility] Report ? Provider: ?? ERIC LIVINGSTON ?Pt. Name: ?? KENA , HARDIK ? Acc #: ?[id number] ?Pt. MRN: ?[id number] ? Col Date: ?? 5 ? /Sex: [...] hutchison-pink tissue, wispy. ? Sections/Processing: (T1) ? [facility] ? Provider: ?? ERIC LIVINGSTON ?Pt. Name: ?? HARDIK ESCUDERO ? Acc #: ?[id number] ?Pt. MRN: ?[id number] ? Col Date: ?? 5 ? /Sex: [...] Organization Address City/State/[place] [address] [facility] Specimen to Pathology (surgical or derm) (04/29/2015 9:08 AM EDT) Specimen Anatomical Collection Method Collection Time Receive d Time (Source) Location / / Volume Laterality AP Specimen 04/29/2015 9:08 AM 5 9:08 EDT AM EDT Narrative CERNER MILLENNIUM - 04/29/2015 9:08 AM E DT Specimen requisition ordered. ??Separate Pathology report to follow Eric Livingston MD PATHOLOGY/CYTOLOGY ORDERABLE S Performing Organization Address City/[facility]/[place] [address] CERNER MILLENNIUM Specimen to [...] Organization Address City/State/ZIP Code Phon e Number [address] CERNER MILLENNIUM Specimen to Pathology [...] MD PATHOLOGY/CYTOLOGY ORDERABLE S Performing Organization Address City/[facility]/[place] [address] CERNER MILLENNIUM Specimen to [...] Organization Address City/State/[place] [address] CERNER MILLENNIUM Specimen to [...] MD PATHOLOGY/CYTOLOGY ORDERABLE S Performing Organization Address City/[facility]/ZIP Code Phon e Number [address] CERNER MILLENNIUM Specimen to Pathology [...] MD PATHOLOGY/CYTOLOGY ORDERABLE S Performing Organization Address City/[facility]/[place] [address] CERNER MILLENNIUM UPPER GI ENDOSCOPY (04/29/2015 7:26 AM EDT) Component Value Ref Test Analysis Performed At [facility] Range Method Time Signature UPPER GI [facility]OVATION ENDOSCOPY Endoscopy Patient Name: Hardik Escudero ? Procedure Date: 04/29/2015 7:26 AM ? Date of : 1945 ? Age: 70 ? Order #: [id number] ? Procedure: ? Upper GI endoscopy Indications: ? Follow-up of Miles's esophagus, ? 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 previous ablation treatment o f ? Miles's esophagus, Follow-u p of ? endoscopic mucosal resection of ? Miles's esophagus, [facility] Providers: ? Eric Livingston MD, Sandy Little , ? POOL, Catie Lemus, Tomas Gilmore MD: ?Victor M [...] Active and Recently Administered Medications Care Teams Gas Collection System Operator Relationship Specialty Start Date End Date Victor M Jeff DO PCP - General 03/14/[address] [place] [address] documented as of this encounter
--- OUTSIDE RECORDS SUMMARY | 2022-08-10 23:23 | XMS_ITS | Encounter Summary ---
:1945 Author Organization [facility] Address [facility] [place] [address] Care Team Providers Name Role Phone TomerVictor M alvarado Primary Care Provider Encounter Details Date Type Department Care Team Description 05/16/[address] [facility] Eric Livingston, EGD, UPPER GI [facility] [place] [address] [facility] [phone] DR GASTROENTEROLOGY DEPT. [place], [place] [address] Social History Tobacco Use Types Packs/Day Years Used Date Smoking Tobacco: Every Day Cigarettes 1 Smokeless Tobacco: Never Alcohol Use Standard Drinks/Week Comments No 0 (1 standard drink = 0.6 oz pure alcoho l) hunting season Sex Assigned at Date Recorded Not on file documented as of this encounter Last Filed Vital Signs Vital Sign Reading Time Taken Comments Blood Pressure 169/97 05/16/2016 7:39 AM EDT Pulse 64 05/16/2016 7:39 AM EDT Temperature - - Respiratory Rate 16 05/16/2016 7:39 AM EDT Oxygen Saturation 99% 05/16/2016 7:39 AM EDT Inhaled Oxygen Concentration - - Weight 88.5 kg (195 lb) 05/16/2016 7:39 AM EDT Height 180.3 cm (5' 11) 05/16/2016 7:39 AM EDT Body Mass Index 27.2 05/16/2016 7:39 AM EDT documented in this encounter Discharge Instructions Discharge InstructionsJeinnings, Natalie L, RN - 05/16/2016 9:29 AM EDT Images from the original note were not included. [facility] Upper GI Endoscopy: What to Expect at Home Your Recovery After you have an endoscopy, you will stay at the hospital or clinic for 1 to 2 hours. This will allow the medicine to wear off. You will be able to go home after your doctor or nurse checks to make sure you are not having any problems. You may have to stay overnight if you had treatment during the test. You may have a sore throat for a day or two after the test. This care sheet gives you a general idea about what to expect after the test. How can you care for yourself at home? Activity ?? Rest as much as you need to after you go home. ?? You should be able to go back to your usual activities the day after the test. Diet ?? Follow your doctor's directions for eating after the test. ?? Drink plenty of fluids (unless your doctor has told you not to). Medications ?? If you have a sore throat the day after the test, use an hagr-cgy-xlacltx spray to numb your throat. Follow-up care is a easley part of your treatment and safety. Be sure to make and go to all appointments, and call your doctor if you are having problems. It's also a good idea to know your test results and keep a list of the medicines you take. When should you call for help? Call 911 anytime you think you may need emergency care. For example, call if: ?? You passed out (lost consciousness). ?? You cough up blood. ?? You vomit blood or what looks like coffee grounds. ?? You pass maroon or very bloody stools. Call your doctor now or seek immediate medical care if: ?? You have trouble swallowing. ?? You have belly pain. ?? Your stools are black and tarlike or have streaks of blood. ?? You are sick to your stomach or cannot keep fluids down. Watch closely for changes in your health, and be sure to contact your doctor if: ?? Your throat still hurts after a day or two. ?? You do not get better as expected. Where can you learn more? Visit our health information library at [email or web address] You can also view health information on [employer], your personal patient account. Log in or sign up today. Enter J454 in the search box to learn more about Upper GI Endoscopy: What to Expect at Home. ?? [id number] [employer]. Care instructions adapted under license by [facility]. This care instruction is for use with your licensed healthcare professional. If you have questionsabout a medical condition or this instruction, always ask your healthcare professional. [employer] disclaims any warranty or liability for your use of this information. Content Version: 10.4.647813; Current as of: July 24, 2014 Patient InstructionsGoEric ferreira MD - 05/16/2016 9:16 AM EDT Please see Recommendations in the [...] (PRILOSEC) 40 TAKE 1 CAPSULE 180 capsule 3 201512/29/2016 mg Capsule, Delayed TWICE A DAY Release(E.C.)Indications : Miles's esophagus without dysplasia documented as of this encounter H&P Notes Eric Livingston MD - 05/16/2016 7:43 AM EDT Gastroenterology and Hepatology Pre-Procedure History and Physical Exam Procedure: EGD: Indication: F/up EMR and RFA of Miles's with [facility] 2012. Patient Active Problem List Diagnosis Code ??? 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 Cigarette smoker F17.210 ??? Gastroesophageal reflux K21.9 ??? Hyperlipidemia E78.5 ??? H/O colonoscopy with polypectomy Z98.89 EXAM: HEENT: Airway examined, oropharynx clear Mallampati [...] Op Note - Eric Livingston MD - 05/16/2016 9:[address] [facility] Operative Note Patient Name: Hardik Arevalo : [id number] MR#: [id number] Case Date: 05/16/2016 Surgeon: Surgeon(s) and Role: * Eric Livingston MD - Primary Preoperative diagnosis: 6 mon f/u from 10/22/14 barretts ablation CONSULT Postoperative diagnosis: * No post-op diagnosis entered * Procedure(s): EGD, UPPER GI ENDOSCOPY UPPER GASTROINTESTINAL ENDOSCOPY,WITH BIOPSY SINGLE OR MULTIPLE Anesthesia: MAC Full procedure note is documented under the Procedure section of eDH. documented in this encounter Plan of Treatment Not on filedocumented as of this encounter Procedures Procedure Name Priority Date/Time Associated Comments Diagnosis SURGICAL PATHOLOGY Routine 05/16/2016 9:18 Result s for this REPORT AM EDT procedure are i n the results section. SPECIMEN TO PATHOLOGY Routine 05/16/2016 9:18 Res ults for this AM EDT procedure are i n the results section. SPECIMEN TO PATHOLOGY Routine 05/16/2016 9:18 Res ults for this AM EDT procedure are i n the results section. SPECIMEN TO PATHOLOGY Routine 05/16/2016 9:18 Res ults for this AM EDT procedure are i n the results section. SPECIMEN TO PATHOLOGY Routine 05/16/2016 9:18 Res ults for this AM EDT procedure are i n the results section. SPECIMEN TO PATHOLOGY Routine 05/16/2016 9:18 Res ults for this AM EDT procedure are i n the results section. SPECIMEN TO PATHOLOGY Routine 05/16/2016 9:18 Res ults for this AM EDT procedure are i n the results section. SPECIMEN TO PATHOLOGY Routine 05/16/2016 9:18 Res ults for this AM EDT procedure are i n the results section. UPPER GASTROINTESTINAL 05/16/2016 8:12 6 mon f/u from ENDOSCOPY,WITH BIOPSY AM EDT 10/22/14 SINGLE OR MULTIPLE (WRVU miels s ablation 2.49) CONSULT EGD, UPPER GI ENDOSCOPY 05/16/2016 8:12 6 mon f/u from AM EDT 10/22/14 barretts ablatio n CONSULT UPPER GI ENDOSCOPY Routine 05/16/2016 7:49 Result s for this AM EDT procedure are i n the results section. documented in this encounter Results Surgical Pathology Report (05/16/2016 9:18 AM EDT) Component Value Ref Test Analysis Performed At [facility] Range Method Time Signature Surgical [id number] ? Location: 4T; [facility]; [facility] Report The signing pathologist has (i) examined the relevant preparation(s) for the [facility]ORIAL specimen(s) and (ii) rendered or confirmed the diagnosis(es) . HOSPITAL LABORATORY . ?Surgic al Pathology DIAGNOSIS A - Esophagus at 31cm, biopsy: Esophageal squamous mucosa, negative for diagnostic abnormal ity. B - Cardia at 38 cm, biopsy: Gastric body/fundic-type mucosa with mild chronic inflammati on. No intestinal metaplasia or dysplasia seen. C - Esophagus at 35 cm, biopsy: Esophageal squamous mucosa, negative for diagnostic abnormal ity. D - Esophagus at 27 cm, biopsy: Esophageal squamous mucosa, negative for diagnostic abnormal ity. E - GE junction at 37 cm, biopsy: Squamous esophageal and gastric-type mucosa within mild endodontist shirley inflammation. No intestinal metaplasia or dysplasia seen. F - Esophagus at 29 cm, biopsy: Esophageal squamous mucosa, negative for diagnostic abnormal ity. G - Esophagus at 33 cm, biopsy: Esophageal squamous mucosa with mild reactive changes. Electronically signed by: ??Artis MCKEON, Melyssa Verified: ??05/22/2016 ?Pathologist CLINICAL INFORMATION Specimen Submitted: A - Bx esophagus at 31cm B - Bx cardia at 38 cm C - Bx esophagus at 35 cm D - Bx esophagus at 27 cm E - Bx ge jct at 37 cm F - Bx esophagus at 29 cm G - Bx esophagus at 33 cm Clinical History: Previous Miles 's with [facility] status post EMR and RFA 2012 Clinical Diagnosis: Rule out recurrent Miles ??'s or dysplasia SPECIMEN PROCESSING A - Labeled/Fixative: BX esophagus at 31 cm, formalin. Quantity/Size: Three, averaging 0.4 cm. Tissue Description: ??Soft, white tissues . Sections/Processing: (T1) B - Labeled/Fixative: BX cardia 38 cm, formalin. Quantity/Size: Three, ranging from 0.2-0.4 cm. Tissue Description: ??Soft, pink tissues . . SPECIMEN PROCESSING Sections/Processing: (T1) C - Labeled/Fixative: BX esophagus at 35 cm, formalin. Quantity/Size: Four, ranging from 0.3-0.5 cm. Tissue Description: ??Soft, white tissues . Sections/Processing: (T1) D - Labeled/Fixative: BX esophagus at 27 cm, formalin. Quantity/Size: Three, averaging 0.4 cm. Tissue Description: ??Soft, white tissues . Sections/Processing: (T1) E - Labeled/Fixative: BX GE junction at 37 cm, formalin. Quantity/Size: Four, ranging from 0.2-0.4 cm. Tissue Description: ??Soft, pink tissues . Sections/Processing: (T1) F - Labeled/Fixative: BX esophagus at 29 cm, formalin. Quantity/Size: Three, averaging 0.4 cm. Tissue Description: ??Soft, white tissues . Sections/Processing: (T1) G - Labeled/Fixative: BX esophagus at 33 cm, formalin. Quantity/Size: Three ranging from 0.3-0.6 cm. Tissue Description: ??Soft, white tissues . Sections/Processing: (T1) ??sns Specimen (Source) Anatomical Collection Method Collection Time Re ceived Time Location / / Volume Laterality 05/16/2016 9:18 AM EDT Eric Livingston MD PATHOLOGY/CYTOLOGY ORDERABLE S Performing Organization Address City/[facility]/[place] [address] Specimen to Pathology (surgical or derm) (05/16/2016 9:18 AM EDT) Specimen Anatomical Collection Method Collection Time Receive d Time (Source) Location / / Volume Laterality AP Specimen 05/16/2016 9:18 AM 6 9:18 EDT AM EDT Narrative [facility] OR - 05/16/2016 9:18 AM EDT Specimen requisition ordered. ??Separate Pathology report to follow Eric Livingston MD PATHOLOGY/CYTOLOGY ORDERABLE S Performing Organization Address City/[facility] [place] [address] Specimen to Pathology (surgical or derm) (05/16/2016 9:18 AM EDT) Specimen Anatomical Collection Method Collection Time Receive d Time (Source) Location / / Volume Laterality AP Specimen 05/16/2016 9:18 AM 6 9:18 EDT AM EDT Narrative [facility] - 05/16/2016 9:18 AM EDT Specimen requisition ordered. ??Separate Pathology report to follow Erci Livingston MD PATHOLOGY/CYTOLOGY ORDERABLE S Performing Organization Address City/[facility]/[place] [address] Specimen to Pathology (surgical or derm) (05/16/2016 9:18 AM EDT) Specimen Anatomical Collection Method Collection Time Receive d Time (Source) Location / / Volume Laterality AP Specimen 05/16/2016 9:18 AM 6 9:18 EDT AM EDT Narrative [facility] - 05/16/2016 9:18 AM EDT Specimen requisition ordered. ??Separate Pathology report to follow Eric Livingston MD PATHOLOGY/CYTOLOGY ORDERABLE S Performing Organization Address City/State/[place] [address] Specimen to Pathology (surgical or derm) (05/16/2016 9:18 AM EDT) Specimen Anatomical Collection Method Collection Time Receive d Time (Source) Location / / Volume Laterality AP Specimen 05/16/2016 9:18 AM 6 9:18 EDT AM EDT Narrative [facility] - 05/16/2016 9:18 AM EDT Specimen requisition ordered. ??Separate Pathology report to follow Eric Livingston MD PATHOLOGY/CYTOLOGY ORDERABLE S Performing Organization Address City/[facility]/[place] [address] Specimen to Pathology (surgical or derm) (05/16/2016 9:18 AM EDT) Specimen Anatomical Collection Method Collection Time Receive d Time (Source) Location / / Volume Laterality AP Specimen 05/16/2016 9:18 AM 6 9:18 EDT AM EDT Narrative [facility] - 05/16/2016 9:18 AM EDT Specimen requisition ordered. ??Separate Pathology report to follow Eric Livingston MD PATHOLOGY/CYTOLOGY ORDERABLE S Performing Organization Address City/[facility]/[place] [address] Specimen to Pathology (surgical or derm) (05/16/2016 9:18 AM EDT) Specimen Anatomical Collection Method Collection Time Receive d Time (Source) Location / / Volume Laterality AP Specimen 05/16/2016 9:18 AM 6 9:18 EDT AM EDT Narrative [facility] - 05/16/2016 9:18 AM EDT Specimen requisition ordered. ??Separate Pathology report to follow Eric Livingston MD PATHOLOGY/CYTOLOGY ORDERABLE S Performing Organization Address City/[facility]/ZIP [facility] [place] [address] Specimen to Pathology (surgical or derm) (05/16/2016 9:18 AM EDT) Specimen Anatomical Collection Method Collection Time Receive d Time (Source) Location / / Volume Laterality AP Specimen 05/16/2016 9:18 AM 6 9:18 EDT AM EDT Narrative [facility] - 05/16/2016 9:18 AM EDT Specimen requisition ordered. ??Separate Pathology report to follow Eric Livingston MD PATHOLOGY/CYTOLOGY ORDERABLE S Performing Organization Address City/State/ZIP [place] [address] UPPER GI ENDOSCOPY (05/16/2016 7:49 AM EDT) Component Value Ref Test Analysis Performed At [facility] Range Method Time Signature UPPER GI [facility]OV[facility] ENDOSCOPY Endoscopy Procedure Date: 05/16/2016 7:49 AM ? Patient Name: Hardik Arevalo ? Date of : 1945 ? Age: 71 ? Order #: [id number] ? Instrument Name: [id number] ? Procedure: ? Upper GI endoscopy Indications: ? 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 previous ablation treatment o f ? Miles's esophagus, Post end oscopic ? mucosal resection for Miles 's ? esophagus with dysplasia Providers: ? Eric Livingston MD, Bentley Messer. ? POOL Almazan, Bo Gilmore MD: ?Victor M Jeff, DO Medicines: [...] on ? age 65 or older and patient's history ? of problems with anesthesia. ? The procedure, indications, b enefits, ? [...] was irregular in contour and was found 37 ? cm from the incisors at the Jct. There were no ? masses or nodules by white light or NBI. Volumetric ? Laser Endomicroscopy (VLE) was performed by inserting ? the imaging catheter (20 mm balloon) through the ? working channel of the endoscope. The VLE imaging ? probe was positioned so that the stomach tissue ? (cardia) was seen in the distal portion of the VLE ? scan. The GEJ location was identified in the VLE ? scan, and correlated to the endoscopic position of ? the GEJ (37 cm from the incisors). The VLE scan was ? continuously imaged for 6 cm, scanning the esophagus ? to a depth of 3 mm. The VLE scan was reviewed and ? areas of suspicion noted and correlated to the ? anatomic location seen on endoscopy so that ? suspicious areas could be further examined by biopsy ? and histology. Suspicious areas were not seen though ? there was mild thickening of neosquamous epithelium ? and some benign appearing glands in the cardia. ? Biopsies were taken with a cold forceps for histology ? from cardia at 38 cm, GE Jct at 37 cm and then q 2 cm ? to 27 cm (4 quadrants). ? A medium-sized hiatus hernia was present (6 cm). ? Otherwise normal stomach including retroflex view of ? cardia and fundus. ? The examined duodenum was normal except for a ? wide-mouthed diverticulum in the bulb that contained ? food. ? Impression: ?- No endoscopic or VLE evidence fo r ? recurrent Miles's or dyspla natali but ? biopsies taken. ? - Medium-sized hiatus hernia. ? - Duodenal diverticulum as se en ? previously. Recommendation: ?- Await pathology results. ? - Repeat the upper endoscopy in 1 ? year for surveillance based o n ? pathology results. ? Eric Livingston MD 05/16/2016 9:25:48 AM This report has been signed electronically. Number of Addenda: 0 Note Initiated On: 05/16/2016 7:49 AM Specimen (Source) Anatomical Collection Method Collection Time Re ceived Time Location / / Volume Laterality 05/16/2016 7:49 AM EDT Victor M Jeff DO GENERAL [...] 7:48 AM EDT 100 mL/hr 100 mL/hr documented in this encounter Active and Recently Administered Medications Times are shown in EDT. Continuous Medication Order 05/14/2016 05/15/2016 05/16/2016 lactated ringers infusion (CANCELED) 0748 (New Bag - Provider: Dali Phillips RN)0812 (New Bag - Provider: Niraj Cosby CRNA) 100 mL/hr, at 100 mL/hr, Intravenous, CO NTINUOUS, Starting Sun05/16/16 at 0800, Until Sun05/16/16 at 0934, Endo (Day of Procedure) documented in this encounter Care Teams Lead Operator Relationship Specialty Start Date End Date Victor M Jeff DO PCP - General 03/14/13 [address] [place] [address] documented as of this encounter
--- OUTSIDE RECORDS SUMMARY | 2022-08-10 23:23 | XMS_ITS | Encounter Summary ---
:1945 Author Organization [facility] [place] [address] Care Team Providers Name Role Phone Victor M Jeff DO Primary Care Provider Reason for Visit Reason Comments Medication Refill Encounter Details Date Type Department Care Team Description 01/04/2016 Refill Gastroenterology at [facility] Eric Livingston, Lin's esophagus [facility] [place] [address] [facility] [phone] DR GASTROENTEROLOGY DEPT. [place], [place] [address] Social History Tobacco Use Types [...] esophagus documented in this encounter Care Teams Screwhead Stoner And Polisher Relationship Specialty Start Date End Date Victor M Jeff DO PCP - General 03/14/[address] [place] [address] documented as of this encounter
--- OUTSIDE RECORDS SUMMARY | 2022-08-10 23:23 | XMS_ITS | Encounter Summary ---
:1945 Author Organization [facility] Address [address] [place] [address] Care Team Providers Name Role Phone TomerVictor M alvarado Primary Care Provider Reason for Visit Auth/Cert Specialty Diagnoses / Procedures Referred By Contact Refer red To Contact Diagnoses barrets ablation Procedures PRO UPPER GI ENDOSCOPY, DIAGNOSTIC EGD, UPPER GI ENDOSCOPY Referral ID Status Reason Start Date Expiration Date Visits Requ ested Visits Authorized [id number] 1 1 Encounter Details Date Type Department Care Team Description 05/21/2018 Surgery [place]ology at [facility] [place] Livingston, EGD WITH BIOPSY ([facility] Norm whitehead MD [address]) [place] [address] [facility] [phone] GASTROENTEROLOGY DEPT. [place], [place] [address] Social History Tobacco Use Types [...] documented in this encounter Discharge Instructions Discharge Sara Hill RN - 05/21/2018 4:40 PM EDT UPPER [...] better as expected. Sunday-Sunday Same Day Endo [phone] Otherwise contact [phone] and ask to speak to the tool and production planner police officer crime prevention Follow-up care is a easley part of your treatment and safety. Be sure to make and go to all appointments, and call your doctor if you are having problems. Instructions have been reviewed and patient expresses understanding Patient InstructionsEric Livingston MD - 05/21/2018 4:47 PM EDT Please [...] Livingston MD - 05/21/2018 4:46 PM EDT [facility] Operative Note Patient Name: Hardik Arevalo : [id number] MR#: [id number] Case Date: 05/21/2018 Surgeon: Surgeon(s) and Role: [...] Component Value Ref Test Analysis Performed At [facility] Range Method Time Signature Surgical [id number] ? Location: 4T; [facility]; [facility] Report The signing pathologist has (i) examined the relevant preparation(s) for the MEMORIAL specimen(s) and (ii) rendered or confirmed the diagnosis(es) . HOSPITAL LABORATORY . ? Addendum ADDENDUM DISCUSSION A [facility] 3D report (case rohith delvalle [id number] dated 05/29/2018) on specimen C has been received. For the full text of the [facility] 3D report(s), please refer to Non- Documentation Pathology in the electronic health record (eDH). Electronically signed by: ??Thai Lockett MD, I Verified: ??06/10/2018 ?Pathologist Performed at: ??-[facility] Dept. of Pathology, [place], [place] ?Surgic al Pathology DIAGNOSIS A - [...] Wisdom MD Verified: ??05/27/2018 ?Pathologist Performed at: ??-[facility] Dept. of Pathology, [place], [place] CLINICAL INFORMATION Specimen Submitted: A - [...] MD PATHOLOGY/CYTOLOGY ORDERABLE S Performing Organization Address City/[facility]/[place] [address] Specimen to Pathology (05/21/2018 4:33 PM EDT) Specimen Anatomical Collection Method Collection Time Receive d Time (Source) Location / / Volume Laterality AP Specimen 05/21/2018 4:33 PM 8 4:33 EDT PM EDT Narrative [facility] - 05/21/2018 4:33 PM EDT Specimen requisition ordered. ??Separate Pathology report to follow Eric Livingston MD PATHOLOGY/CYTOLOGY ORDERABLE S Performing Organization Address City/[facility]/[place] [address] Specimen to Pathology (05/21/2018 4:33 PM EDT) Specimen Anatomical Collection Method Collection Time Receive d Time (Source) Location / / Volume Laterality AP Specimen 05/21/2018 4:33 PM 8 4:33 EDT PM EDT Narrative [facility] - 05/21/2018 4:33 PM EDT Specimen requisition ordered. ??Separate Pathology report to follow Eric Livingston MD PATHOLOGY/CYTOLOGY ORDERABLE S Performing Organization Address City/State/[place] [address] UPPER GI ENDOSCOPY (05/21/2018 4:15 PM EDT) Component Value Ref Test Analysis Performed At [facility] Range Method Time Signature UPPER GI [facility] ENDOSCOPY Endoscopy Procedure Date: 05/21/2018 4:15 PM ? Patient Name: Hardik Arevalo ? Date of : 1945 ? Age: 73 ? Order #: [id number] ? Instrument Name: [id number] ? Procedure: ? Upper GI endoscopy Indications: ? Follow-up of Lin's esophagus, ? 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 Eric Livingston MD, Keith Stanton, ? Syeda Fagan MD: ?Victor M Jeff, DO Medicines: ? [...] the physician, ethan borrego ? nurse, the extractions technologist and e ? liquified natural gas technician. The procedure was ? verified in [...] pathology. ? Wide Area Transepithelial Sampling (WATS-3D [place] ? Biopsy) was performed for histology 1 cm proximal to ? the GE junction and at the gastroesophageal junction. ? One specimen brush kit was sent for Computer-Assisted ? 3-Dimensional analysis. Verification of patient ? identification for the specimen was done by the ? physician, nurse and liquified natural gas technician using the patient's ? name, date [...] Procedure Code(s): ?? --- Professional --- ? 74605, Esophagogastroduodenos copy, ? flexible, transoral; with bio psy, ? single or multiple CPT copyright 2017 [employer]. All rights reserved. The codes documented in this report are preliminary and upon climatologist review may be revised to meet current [...] Procedure) documented in this encounter Care Teams Supervisor Mixing Relationship Specialty Start Date End Date Victor M Jeff DO PCP - General 03/14/[address] [place] [address] documented as of this encounter
--- OUTSIDE RECORDS SUMMARY | 2022-08-10 23:23 | XMS_ITS | Encounter Summary ---
:1945 Author Organization [facility] [place] [address] Care Team Providers Name Role Phone Victor M Jeff DO Primary Care Provider Reason for Visit Reason Comments Medication Refill Encounter Details Date Type Department Care Team Description 12/29/2016 Refill Gastroenterology at [facility] Eric Livingston, Lin's esophagus [facility] Norm [place]head [place] [address] [facility] [phone] DR GASTROENTEROLOGY DEPT. [place], [place] [address] Social History Tobacco Use Types [...] esophagus documented in this encounter Care Teams Fruit Or Nut Grower Relationship Specialty Start Date End Date Victor M Jeff DO PCP - General 03/14/[address] [place] [address] documented as of this encounter
--- OUTSIDE RECORDS SUMMARY | 2022-08-10 23:23 | XMS_ITS | Encounter Summary ---
:1945 Author Organization [facility] [place] [address] Care Team Providers Name Role Phone Victor M Jeff DO Primary Care Provider Reason for Visit Reason Comments Medication Refill Encounter Details Date Type Department Care Team Description 09/13/2020 Refill Gastroenterology at [facility] Eric Livingston, Lin's esophagus [facility] Norm [place] [address] [facility] [phone] GASTROENTEROLOGY DEPT. [place], [place] [address] Social History Tobacco Use Types [...] esophagus documented in this encounter Care Teams Bracer Relationship Specialty Start Date End Date Victor M Jeff DO PCP - General 03/14/[address] [place] [address] documented as of this encounter
--- OUTSIDE RECORDS SUMMARY | 2022-08-10 23:23 | XMS_ITS | Encounter Summary ---
:[address] [facility] [place] [address] Care Team Providers Name Role Phone Victor M Jeff DO Primary Care Provider Encounter Details Date Type Department Care Team Description 05/21/2018 Notes Only Gastroenterology at [facility] Eric Livingston MD [facility] [place] [address] GASTROENTEROLOGY [phone] DEPT. [place], [place] [address] (Wo rk) Social History Tobacco Use Types Packs/Day Years Used Date Smoking Tobacco: Every Day Cigarettes 1 Smokeless Tobacco: Never Alcohol Use Standard Drinks/Week Comments No 0 (1 standard drink = 0.6 oz pure alcoho l) hunting season Sex Assigned at Date Recorded Not on file documented as of this encounter Progress Notes Татьяна Eduardo I - 05/21/2018 11:59 PM EDT The WATS3D (Wide Area Transepithelial Sample Biopsy with 3-Dimensional Computer-Assisted Analysis) [place] Registry ?? [facility]: [id number] [place]: [id number] ?? PI: Eric Livingston MD ?? Hardik Arevalo was seen prior to their scheduled procedure. The consent form for the above titled study was reviewed. All questions were answered. Hardik Arevalo expressed an adequate understanding of the registry and their willingness to participate. No data was collected prior to the signing of this ICF. A copy of the signed ICF was given to the patient. The original will be scanned into the EMR before being stored in the study records. .Hardik Arevalo was encouraged to call with any questions or concerns. Numbers are provided in the consent form.Hardik Arevalo is in agreement with this plan. documented in this encounter Plan of Treatment Not on filedocumented as of this encounter Visit Diagnoses Not on filedocumented in this encounter Care Teams Merchandising Consultant Relationship Specialty Start Date End Date Victor M Jeff DO PCP - General 03/14/[address] [place] [address] documented as of this encounter
--- OUTSIDE RECORDS SUMMARY | 2022-08-10 23:23 | XMS_ITS | Encounter Summary ---
:1945 Author Organization [facility] [place] [address] Care Team Providers Name Role Phone TomerVictor M alvarado Primary Care Provider Encounter Details Date Type Department Care Team Description 10/22/2014 Hospital Encounter [facility]astroenterology at [facility] [place] [address] [facility] [phone] [facility] [place], [place] [address] Social History Tobacco Use Types Packs/Day Years Used Date Smoking Tobacco: Every Day Alcohol Use Standard Drinks/Week Comments No 0 (1 standard drink = 0.6 oz pure alcoho l) hunting season Sex Assigned at Date Recorded Not on file documented as of this encounter Last Filed Vital Signs Vital Sign Reading Time Taken Comments Blood Pressure 104/67 10/22/2014 11:30 AM EST Pulse 66 10/22/2014 11:30 AM EST Temperature - - Respiratory Rate 20 10/22/2014 11:30 AM EST Oxygen Saturation 96% 10/22/2014 11:35 AM EST Inhaled Oxygen Concentration - - Weight - - Height - - Body Mass Index - - documented in this encounter Discharge Instructions Discharge Haven Pena RN - 10/22/2014 11:45 AM EST UPPER GI ENDOSCOPY WHAT TO EXPECT AFTER [...] do not get better as expected. Sunday-Sunday Clinic [phone] 8a-5p Same Day Endo [phone] 7a-8p Otherwise contact [phone] and ask to speak to the product marketer convertible sofa bedspring tester Follow-up care is a easley part of your treatment and safety. Be sure to make and go to all appointments, and call your doctor if you are having problems. Instructions have been reviewed and patient expresses understanding Patient InstructionsEric Livingston MD - 10/22/2014 12:59 PM EST Please see Recommendations in the Provation procedure [...] times daily. documented as of this encounter Progress Notes Robert Munroe RN - 10/20/2014 3:40 PM EST ENDOSCOPY PATIENT HISTORY Name: HARDIK ESCUDERO : 1945 Age: 69 y.o. [address]: [address] [place] [phone] (home) Mobile: Telephone Information: Referring Provider: Victor M Jeff Referral Procedure: EGD Sedation: per anesthesia Allergies: No Known Allergies Problem list: Patient Active Problem List Diagnosis Code ??? 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 Past Surgical History: Past Surgical History Procedure Laterality Date ??? Endoscopic us exam, esoph 03/19/2013 UPPER EUS- ENDOSCOPIC ULTRASOUND performed by Eric Livingston MD at [facility] ??? Upper gi endoscopy, diagnostic 08/26/2013 EGD, UPPER GI ENDOSCOPY performed by Eric Livingston MD at [facility] ??? Upper gi endoscopy, diagnostic 12/10/2013 EGD, UPPER GI ENDOSCOPY performed by Eric Livingston MD at [facility] ??? Upper gi endoscopy, biopsy 03/24/2014 EGD WITH BIOPSY performed by Eric Livingston MD at [facility] Medications: Prior to Admission medications Medication Sig Start Date End Date Taking? Authorizing Provider oxyCODONE (ROXICODONE) 5 mg/5 mL solution Take 5-10 mLs by mouth every 4 hours as needed for Pain. 12/10/13 Sukumar Goins MD omeprazole (PRILOSEC) 20 mg capsule Take 20 mg by mouth 2 times daily. 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 Problem List: Patient Active Problem List Diagnosis Code ??? 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 male here for EGD Proceed with the planned endoscopic procedure. Risks and benefits of the procedure explained to the patient. Consent signed. documented in this encounter Miscellaneous Notes Op Note - Eric Livingston MD - 10/22/2014 12:59 PM EST [facility] Operative Note Patient Name: Hardik Escudero : [id number] MR#: [id number] Case Date: 10/22/2014 Surgeon: Surgeon(s) and Role: * Eric Livingston MD - Primary * Renetta Thomson MD - Fellow Preoperative diagnosis: 6 mon f/u from 03/24/14 barretts ablation CONSULT Postoperative diagnosis: * No post-op diagnosis entered * Procedure(s): EGD WITH BIOPSY Anesthesia: MAC Full procedure note is documented under the Procedure section of [facility]. documented in this encounter Plan of Treatment Not on filedocumented as of this encounter Procedures Procedure Name Priority Date/Time Associated Diagnosis Comme nts SURGICAL PATHOLOGY Routine 10/22/2014 11:21 AM Re sults for this REPORT EST procedure are i n the results section. SPECIMEN TO Routine 10/22/2014 11:21 AM Results for this PATHOLOGY EST procedure are i n the results section. SPECIMEN TO Routine 10/22/2014 11:21 AM Results for this PATHOLOGY EST procedure are i n the results section. SPECIMEN TO Routine 10/22/2014 11:21 AM Results for this PATHOLOGY EST procedure are i n the results section. SPECIMEN TO Routine 10/22/2014 11:21 AM Results for this PATHOLOGY EST procedure are i n the results section. SPECIMEN TO Routine 10/22/2014 11:21 AM Results for this PATHOLOGY EST procedure are i n the results section. SPECIMEN TO Routine 10/22/2014 11:21 AM Results for this PATHOLOGY EST procedure are i n the results section. UPPER GI ENDOSCOPY Routine 10/22/2014 10:24 AM Re sults for this EST procedure are i n the results section. EGD WITH BIOPSY 10/22/2014 10:10 AM 6 mon f/u from (WRVU 2.49) EST 03/24/14 barretts ablatio n CONSULT documented in this encounter Results Surgical Pathology Report (10/22/2014 11:21 AM EST) Component Value Ref Test Analysis Performed At [facility] Range Method Time Signature Surgical CERNER Pathology ? [facility] Report ? Provider: ?? ERIC LIVINGSTON ?Pt. Name: ?? HARDIK ESCUDERO ? Acc #: ?[id number] ?Pt. MRN: ?[id number] ? Col Date: ?? 5 ? /Sex: ?1945,(69 years),Male ? Rec Date: ?? 10/22/2014 ? LOC: ?4T ? SURGICAL PATHOLOGY ? ---Pathologic Diagnosis--- ? Endoscopic biopsies - ? A. Esophageal squamous mucosa within normal limits. ? B. Squamocolumnar junctional mucosa with mild chronic inflammation. No ? goblet cell metaplasia is seen. ? C. Squamocolumnar junctional mucosa with mild chronic inflammation. No ? goblet cell metaplasia is seen. ? D. Esophageal squamous mucosa within normal limits. ? E. Esophageal squamous mucosa within normal limits. ? F. Esophageal squamous mucosa within normal limits. ? CR-PX ? 10/23/14 ? AAS ? 10/23/14 Verified by: ? Kinga Magana MD ? Pathologist ? (Electronic Si gnature) ? The attending pathologist whose signature appears o n this report has ? reviewed all diagnostic slides and has edited the isabel ss and/or ? microscopic portion of the report in rendering the fi nal pathologic ? diagnosis. ? ---Gross Description--- ? A - Labeled/Fixative: Esophagus at 32 cm, formalin. ? Quantity/Size: Five, ranging from 0.2-0.5 cm. ? Tissue Description: Soft, white tissues. ? Sections/Processing: (T1) ? B - Labeled/Fixative: Island at 9 o'clock posit ion just above Z line, ? formalin. ? Quantity/Size: Four, ranging from 0.1-0.7 cm. ? Tissue Description: Soft, hutchison-pink tissues. ? Sections/Processing: (T1) ? C - Labeled/Fixative: Esophagus at 35 cm, formalin. ? Quantity/Size: Five, ranging from 0.3-0.4 cm. ? [facility] ? Provider: ?? ERIC LIVINGSTON ?Pt. Name: ?? HARDIK ESCUDERO ? Acc #: ?[id number] ?Pt. MRN: ?[id number] ? Col Date: ?? 5 ? /Sex: ?1945,(69 years),Male ? Rec Date: ?? 10/22/2014 ? LOC: ?4T ? SURGICAL PATHOLOGY ? Tissue Description: Soft, white tissues. ? Sections/Processing: (T1) ? D - Labeled/Fixative: Esophagus at 29 cm, formalin. ? Quantity/Size: Three, ranging from 0.1-0.7 cm. ? Tissue Description: Soft, white tissues. ? Sections/Processing: (T1) ? E - Labeled/Fixative: Esophagus at 26 cm, formalin. ? Quantity/Size: Three, ranging from 0.4-0.5 cm. ? Tissue Description: Soft, white tissues. ? Sections/Processing: (T1) ? F - Labeled/Fixative: Esophagus at 23 cm, formalin. ? Quantity/Size: Three, ranging from 0.3-0.7 cm. ? Tissue Description: Soft, white tissues. ? Sections/Processing: (T1) ??aml ? ---Clinical Information--- ? Specimen Submitted: ? A - Esophagus @ 32 cm ? B - Island @ 9 o'clock position just above zline ? C - Esophagus @ 35 cm ? D - Esophagus at 29cm ? E - Esophagus at 26cm ? F - Esophagus at 23cm ? Clinical History: ? Barretts with prior HGD and IMC. Status post EMR and ablation ? Clinical Diagnosis: ? Same Specimen (Source) Anatomical Collection Method Collection Time Re ceived Time Location / / Volume Laterality 10/22/2014 11:21 AM EST Eric Livingston MD PATHOLOGY/CYTOLOGY ORDERABLE S Performing Organization Address City/State/[place] [address] CERNER MILLENNIUM Specimen to Pathology (surgical or derm) (10/22/2014 11:21 AM EST) Specimen Anatomical Collection Method Collection Time Receive d Time (Source) Location / / Volume Laterality AP Specimen 10/22/2014 11:21 10/22/2014 AM EST 11:21 AM EST Narrative CERNER MILLENNIUM - 10/22/2014 11:21 AM EST Specimen requisition ordered. ??Separate Pathology report to follow Renetta Thomson MD PATHOLOGY/CYTOLOGY ORDERABLE S Performing Organization Address City/[facility]/[place] [address] CERNER MILLENNIUM Specimen to Pathology (surgical or derm) (10/22/2014 11:21 AM EST) Specimen Anatomical Collection Method Collection Time Receive d Time (Source) Location / / Volume Laterality AP Specimen 10/22/2014 11:21 10/22/2014 AM EST 11:21 AM EST Narrative CERNER MILLENNIUM - 10/22/2014 11:21 AM EST Specimen requisition ordered. ??Separate Pathology report to follow Renetta Thomson MD PATHOLOGY/CYTOLOGY ORDERABLE S Performing Organization Address City/State/[place] [address] CERNER MILLENNIUM Specimen to Pathology (surgical or derm) (10/22/2014 11:21 AM EST) Specimen Anatomical Collection Method Collection Time Receive d Time (Source) Location / / Volume Laterality AP Specimen 10/22/2014 11:21 10/22/2014 AM EST 11:21 AM EST Narrative CERNER MILLENNIUM - 10/22/2014 11:21 AM EST Specimen requisition ordered. ??Separate Pathology report to follow Renetta Thomson MD PATHOLOGY/CYTOLOGY ORDERABLE S Performing Organization Address City/State/[place] [address] CERNER MILLENNIUM Specimen to Pathology (surgical or derm) (10/22/2014 11:21 AM EST) Specimen Anatomical Collection Method Collection Time Receive d Time (Source) Location / / Volume Laterality AP Specimen 10/22/2014 11:21 10/22/2014 AM EST 11:21 AM EST Narrative CERNER MILLENNIUM - 10/22/2014 11:21 AM EST Specimen requisition ordered. ??Separate Pathology report to follow Renetta Thomson MD PATHOLOGY/CYTOLOGY ORDERABLE S Performing Organization Address City/State/[place] [address] CERNER MILLENNIUM Specimen to Pathology (surgical or derm) (10/22/2014 11:21 AM EST) Specimen Anatomical Collection Method Collection Time Receive d Time (Source) Location / / Volume Laterality AP Specimen 10/22/2014 11:21 10/22/2014 AM EST 11:21 AM EST Narrative CERNER MILLENNIUM - 10/22/2014 11:21 AM EST Specimen requisition ordered. ??Separate Pathology report to follow Renetta Thomson MD PATHOLOGY/CYTOLOGY ORDERABLE S Performing Organization Address City/[facility]/ZIP Code Phon e Number [address] CERNER MILLENNIUM Specimen to Pathology (surgical or derm) (10/22/2014 11:21 AM EST) Specimen Anatomical Collection Method Collection Time Receive d Time (Source) Location / / Volume Laterality AP Specimen 10/22/2014 11:21 10/22/2014 AM EST 11:21 AM EST Narrative CERNER MILLENNIUM - 10/22/2014 11:21 AM EST Specimen requisition ordered. ??Separate Pathology report to follow Renetta Thomson MD PATHOLOGY/CYTOLOGY ORDERABLE S Performing Organization Address City/[facility]/[place] [address] CERNER MILLENNIUM UPPER GI ENDOSCOPY (10/22/2014 10:24 AM EST) Component Value Ref Test Analysis Performed At [facility] Range Method Time Signature UPPER GI [facility] END[facility] Endoscopy Patient Name: Hardik Escudero ? Procedure Date: 10/22/2014 10:24 AM ? Date of : 1945 ? Age: 69 ? Order #: [id number] ? Procedure: ? Upper GI endoscopy Indications: ? Lin's high grade dysplasia, ? Follow-up of previous ablatio n ? treatment of Lin's esopha fallon, ? Follow-up of endoscopic mucos al ? resection of Lin's esopha fallon, ? f/up [facility] Providers: ? Eric Livingston MD, Renetta Torres er, ? , Bo Hendrix, RN, Trace alvares ? Allan, Pathology Manager Referring MD: ?Victor M Jeff, DO Medicines: ? [...] on ? age 65 or older and complex p rocedure ? (Barrx RFA). ? The procedure, indications, b enefits, ? [...] well. ? Findings: ? The Z-line was slightly irregular and was found 35 cm ? from the incisors at the GE Jct associated with a 2 ? mm island just above the GE Jct. Volumetric Laser ? Endomicroscopy (VLE) was performed by inserting the ? imaging catheter (17 mm balloon) through the working ? channel of the endoscope. The VLE imaging probe was ? positioned so that the stomach tissue (cardia) was ? seen in the distal portion of the VLE scan. The GEJ ? location was identified in the VLE scan, and ? correlated to the endoscopic position of the GEJ (35 ? cm from the incisors). The VLE scan was continuously ? imaged for 6 cm, scanning the esophagus to a depth of ? 3 mm. Two additional stacked scans were also ? performed to special education case manager the length of previous ? Lin's. The VLE scan was reviewed and areas of ? suspicion noted and correlated to the anatomic ? location seen on endoscopy so that suspicious areas ? could be further examined by biopsy and histology. ? Suspicious areas were seen at at site of island at 35 ? cm (focus of non-dysplastic Lin's). The remainder ? of the scan appeared normal.. Biopsies were taken ? with a cold forceps for histology from small ? Lin's island. Coagulation for tissue destruction ? using argon plasma at 0.8 liters/minute and 20 murray ? was successful in ablating the island. Then ? additional biopsies taken from Z-line and then q3 cm ? in 4 quadrants to 24 cm. ? The stomach was normal. ? The examined duodenum was normal. ? Impression: ?- Possible small focus of Lin' s ? just proximal to GE Jct gross ly and ? by VLE-s/p targeted biopsies followed ? by APC. The remainder of the ? esophagus appeared normal but ? biopsies taken. ? - Normal stomach. ? - Normal examined duodenum. Recommendation: ?- Await pathology results. ? - Repeat the upper endoscopy in 6 ? months for follow-up of [employer] tt's ? ablation. ? - The attending physician jaime grey ? above was present for the ent kalpana ? procedure. ? Eric Livingston MD 10/22/2014 11:46 AM This report has been signed electronically. Number of Addenda: 0 Note Initiated On: 10/22/2014 10:24 AM Specimen (Source) Anatomical Collection Method Collection Time Re ceived Time Location / / Volume Laterality 10/22/2014 10:24 AM EST Victor M Jeff DO GENERAL SURGICAL ORDERABLES Performing Organization Address City/State/ZIP Code Phon e Number [employer] documented in this encounter Visit Diagnoses Not on filedocumented in this encounter Active and Recently Administered Medications Care Teams Ruling Technician Relationship Specialty Start Date End Date Victor M Jeff DO PCP - General 03/14/[address] [place] [address] documented as of this encounter
--- OUTSIDE RECORDS SUMMARY | 2022-08-10 23:23 | XMS_ITS | Encounter Summary ---
:1945 Author Organization [facility] [place] [address] Care Team Providers Name Role Phone Victor M Jeff DO Primary Care Provider Encounter Details Date Type Department Care Team Description 05/22/2020 Hospital Encounter [facility]ology [facility] [place] [address] [facility] [phone] [facility] [place], [place] [address] Social History Tobacco Use Types [...] on filedocumented in this encounter Care Teams Oxygen Equipment Technician Relationship Specialty Start Date End Date Victor M Jeff DO PCP - General 03/14/[address] [place] [address] documented as of this encounter
--- OUTSIDE RECORDS SUMMARY | 2022-08-10 23:23 | XMS_ITS | Encounter Summary ---
:1945 Author Organization [facility] Address [address] [place] [address] Care Team Providers Name Role Phone Victor M Jeff Primary Care Provider Reason for Visit Auth/Cert Specialty Diagnoses / Procedures Referred By Contact Refer red To Contact Diagnoses barrets ablation Procedures PRO UPPER GI ENDOSCOPY, DIAGNOSTIC EGD, UPPER GI ENDOSCOPY Referral ID Status Reason Start Date Expiration Date Visits Requ ested Visits Authorized [id number] 1 1 Encounter Details Date Type Department Care Team Description 05/21/2018 Anesthesia Event [place]ology [place] [facility] [place] Shila Oro MD [facility] [place] [address] [facility] Sarah Enciso CRNA [facility] [place] [address] [place] [address] Anesthesia Record Procedure Summary Procedure Name Responsible Anesthesia Start Anesthesia Stop Time Anesthesiologist Time EGD WITH BIOPSY Shila Oro MD 05/21/18 1610 05/21/18 1636 (WRVU 2.49) (Trunk) Events Date Time Event Comment 05/21/2018 1523 1610 AN Verify 1610 Start 1610 An Start Data 1615 An Induction 1632 an stop data 1636 Recovery or ICU Handoff Patient care was transferred to the destination unit staff after review of the patient's medica l history, current anesthetic/surgi saundra status and plan, according to the Provider Handoff Checklist. 1636 Stop Name Total IV Lidocaine 100 mg Propofol 290 mg lactated Ringers infusion 600 mL Agents Name O2 Auxiliary Flowmeter 1 Blood No blood administrations on file. Lines, Drains, and Airways No LDAs on file. documented in this encounter Social History Tobacco Use Types Packs/Day Years Used Date Smoking Tobacco: Every Day Cigarettes 1 Smokeless Tobacco: Never Alcohol Use Standard Drinks/Week Comments No 0 (1 standard drink = 0.6 oz pure alcoho l) hunting season Sex Assigned at Date Recorded Not on file documented as of this encounter OR Notes Anesthesia Postprocedure Evaluation - Shila Oro MD - 05/21/2018 5:00 PM EDT [facility] Department of Anesthesiology Post-procedure Note Patient: Hardik Arevalo Procedure Summary Date Anesthesia Start Anesthesia Stop Room / Location 05/21/18 1610 1636 [facility] ENDO 3 / [facility] ENDOSCOPY Procedure Diagnosis Surgeon Responsible Provider EGD WITH BIOPSY (WRVU 2.49) (N/A Trunk) (barrets ablation) Eric Livingston MD Procopio, Marcia A, MD All Anesthesia Providers: Anesthesiologist: Shila Oro MD PRACTICE SPECIALIST: Renetta Dumont CRNA Most Recent Vitals: 05/21/18 1650 BP: 130/69 Pulse: Resp: SpO2: 100% Pain 0 (05/21/18 1650) Patient Location: PACU/[facility] Level of Consciousness: Awake and Alert Pain Management: Satisfactory Analgesia PONV: None Cardiovascular Status: At Baseline and Hemodynamically Stable Respiratory Status: At Baseline and Room Air Postoperative Fluid Status: Intravascular EUvolemia Possible Anesthetic Complications: NONE apparent at time of evaluation Final Primary Anesthesia Type: General (The anesthetic type performed was the same as planned.) Comments: SHILA ORO MD Anesthesia Preprocedure Evaluation - Shila Oro MD - 05/21/2018 3:21 PM EDT Pre-Anesthesia Evaluation for: Hardik Arevalo a 73 y.o. male. Procedure(s): EGD, UPPER GI ENDOSCOPY Patient Active Problem List Diagnosis ??? COPD (chronic obstructive pulmonary disease) ??? Cigarette smoker ??? Gastroesophageal reflux Miles's ??? Hyperlipidemia ??? H/O colonoscopy with polypectomy Tubulovillous adenoma ??? Intramucosal esophageal cancer No past medical history on file. Past Surgical History: Procedure Laterality Date ??? PRO ENDOSCOPIC US EXAM, ESOPH 03/19/2013 UPPER EUS- ENDOSCOPIC ULTRASOUND performed by Eric Livingston MD at [facility] ENDOSCOPY ??? PRO UPPER GI ENDOSCOPY, BIOPSY 03/24/2014 EGD WITH BIOPSY performed by Eric Livingston MD at [facility] ENDOSCOPY ??? PRO UPPER GI ENDOSCOPY, BIOPSY N/A 10/22/2014 EGD WITH BIOPSY performed by Eric Livingston MD at [facility] ENDOSCOPY ??? PRO UPPER GI ENDOSCOPY, BIOPSY N/A 04/29/2015 UPPER GASTROINTESTINAL ENDOSCOPY,WITH BIOPSY SINGLE OR MULTIPLE performed by Eric Livingston MD at [facility] ENDOSCOPY ??? PRO UPPER GI ENDOSCOPY, BIOPSY N/A 05/16/2016 UPPER GASTROINTESTINAL ENDOSCOPY,WITH BIOPSY SINGLE OR MULTIPLE performed by Eric Livingston MD at [facility] ENDOSCOPY ??? PRO UPPER GI ENDOSCOPY, DIAGNOSTIC 08/26/2013 EGD, UPPER GI ENDOSCOPY performed by Eric Livingston MD at [facility] ENDOSCOPY ??? PRO UPPER GI ENDOSCOPY, DIAGNOSTIC 12/10/2013 EGD, UPPER GI ENDOSCOPY performed by Eric Livingston MD at [facility] ENDOSCOPY ??? PRO UPPER GI ENDOSCOPY, DIAGNOSTIC N/A 05/16/2016 EGD, UPPER GI ENDOSCOPY performed by Eric Livingston MD at [facility] ENDOSCOPY Social History Substance Use Topics ??? Smoking status: Current Every Day Smoker Packs/day: 1.00 Types: Cigarettes ??? Smokeless tobacco: Never Used ??? Alcohol use No Comment: hunting season History Drug Use No No Known Allergies Medications: MAR and/or home medications have been reviewed. Physical Exam: There were no vitals filed for this visit. There is no height or weight on file to calculate BMI. Airway Assessment: Mallampati: I TM distance: >3 FB Neck ROM: full Cardiovascular Assessment: cardiovascular exam normal Pulmonary Assessment: pulmonary exam normal Dental Assessment: - normal exam Misc Assessment: Patient is wearing No contact(s). IV access: Peripheral line Anesthesia Plan: ASA 3 MAC, with a(n) intravenous induction 73 year old male presents for upper endoscopy to follow miles's NPO HTN took meds today Smokes 1ppd for 30 years GERD well controlled with meds NKDA Plan MAC with propofol Region - Other Informed Consent: Anesthetic plan and risks discussed with patient. Plan discussed with PRACTICE SPECIALIST. PAT Staff Note documented in this encounter Plan of Treatment Not on filedocumented as of this encounter Visit Diagnoses Not on filedocumented in this encounter Administered Medications Inactive Administered Medications - up to 3 most recent administrations Medication Order MAR Action Action Date Dose Rate Site lactated Ringers infusion New Bag 05/21/2018 3:46 PM EDT 100 mL/hr, Intravenous, CONTINUOUS, Starting on 05/21/18 at 1615, Until 05/21/18 at 1702, Endoscopy (Day of Procedure) lidocaine (PF) (XYLOCAINE) 100 mg/5 mL (2 %) Given 07/2018 4:15 PM EDT 100 mg injection PRN, Starting on 05/21/18 at 1615, Until 05/21/18 at 1636, Anesthesia Intra-op, Routine propofol (DIPRIVAN) 10 mg/mL bolus injection Given 8 4:30 PM EDT 20 mg (Anesthesia) PRN, Starting on 05/21/18 at 1615, Until 05/21/18 at 1636, Anesthesia Intra-op Given 05/21/2018 4:28 PM EDT 30 mg Given 05/21/2018 4:26 PM EDT 30 mg documented in this encounter Care Teams [employer] Professor Relationship Specialty Start Date End Date Victor M Jeff DO PCP - General 03/14/[address] [place] [address] documented as of this encounter
--- OUTSIDE RECORDS SUMMARY | 2022-08-10 23:23 | XMS_ITS | Encounter Summary ---
:1945 Author Organization [facility] Address [facility] [place] [address] Care Team Providers Name Role Phone TomerVictor M alvarado Primary Care Provider Encounter Details Date Type Department Care Team Description 10/22/2014 Surgery [place]ology [place] [facility] [place] Livingston, EGD WITH BIOPSY ([facility] Norm whitehead MD 2.49) [place] [address] [facility] [phone] GASTROENTEROLOGY DEPT. [place], [place] [address] Social History Tobacco Use Types [...] documented in this encounter Discharge Instructions Discharge InstructionsHaven Pope RN - 10/22/2014 11:45 AM EST UPPER [...] not get better as expected. Sunday-Sunday Clinic [phone] 8a-5p Same Day Endo [phone] 7a-8p Otherwise contact [phone] and ask to speak to the transportation program director outside sales professional Follow-up care is a easley part of [...] ESCUDERO : 1945 Age: 69 y.o. Address: [address] [place] [phone] (home) Mobile: Telephone Information: Referring Provider: Victor [...] ULTRASOUND performed by Eric Livingston MD at [facility] ENDOSCOPY ??? Upper gi endoscopy, diagnostic 08/26/2013 EGD, UPPER GI ENDOSCOPY performed by Eric Livingston MD at [facility] END[facility]COPY ??? Upper gi endoscopy, diagnostic 12/10/2013 EGD, UPPER GI ENDOSCOPY performed by Eric Livingston MD at [facility] END[facility]COPY ??? Upper gi endoscopy, biopsy 03/24/2014 EGD WITH BIOPSY performed by Eric Livingston MD at [facility] Medications: Prior to Admission medications Medication [...] Livingston MD - 10/22/2014 12:59 PM EST [facility] [place] Note Patient Name: Hardik Escudero : [id number] MR#: [id number] Case Date: 10/22/2014 Surgeon: Surgeon(s) and Role: * Eric Livingston MD - Primary * Renetta Thomson MD - Fellow Preoperative diagnosis: 6 mon f/u from 03/24/14 barretts ablation CONSULT Postoperative diagnosis: * No post-op diagnosis entered * Procedure(s): EGD WITH BIOPSY Anesthesia: MAC Full procedure note is documented under the Procedure section of [facility]. documented in this encounter Plan of Treatment [...] Component Value Ref Test Analysis Performed At [facility] Range Method Time Signature Surgical CERNER Pathology ? [facility] Report ? Provider: ?? ERIC LIVINGSTON ?Pt. Name: ?? HARDIK ESCUDERO ? Acc #: ?[id number] ?Pt. MRN: ?[id number] ? Col Date: ?? 5 ? /Sex: [...] ? AAS ? 10/23/14 Verified by: ? Izzy MCKEON, Kinga Mccoy ? Pathologist ? (Electronic Si gnature) ? [...] Quantity/Size: Five, ranging from 0.3-0.4 cm. ? [facility] ? Provider: ?? ERIC LIVINGSTON ?Pt. Name: ?? HARDIK ESCUDERO ? Acc #: ?[id number] ?Pt. MRN: ?[id number] ? Col Date: ?? 5 ? /Sex: [...] Organization Address City/State/[place] [address] CERNER MILLENNIUM Specimen to [...] MD PATHOLOGY/CYTOLOGY ORDERABLE S Performing Organization Address City/[facility]/[place] [address] CERNER MILLENNIUM Specimen to [...] Organization Address City/State/[place] [address] CERNER MILLENNIUM Specimen to [...] Organization Address City/State/[place] [address] CERNER MILLENNIUM Specimen to Pathology (surgical or derm) (10/22/2014 11:21 AM EST) Specimen Anatomical Collection Method Collection Time Receive d Time (Source) Location / / Volume Laterality AP Specimen 10/22/2014 11:21 10/22/2014 AM EST 11:21 AM EST Narrative PANKAJNER PANTERAIUM - 10/22/2014 11:21 AM EST Specimen requisition ordered. ??Separate Pathology report to follow Renetta Thomson MD PATHOLOGY/CYTOLOGY ORDERABLE S Performing Organization Address City/State/ZIP Code Phon e Number [address] JOSEFINA GILES Specimen to Pathology (surgical or derm) (10/22/2014 11:21 AM EST) Specimen Anatomical Collection Method Collection Time Receive d Time (Source) Location / / Volume Laterality AP Specimen 10/22/2014 11:21 10/22/2014 AM EST 11:21 AM EST Narrative JOSEFINA MOTTIUM - 10/22/2014 11:21 AM EST Specimen requisition ordered. ??Separate Pathology report to follow Renetta Thomson MD PATHOLOGY/CYTOLOGY ORDERABLE S Performing Organization Address City/[facility]/ZIP Code Phon e Number [address] JOSEFINA GILES Specimen to Pathology (surgical or derm) (10/22/2014 11:21 AM EST) Specimen Anatomical Collection Method Collection Time Receive d Time (Source) Location / / Volume Laterality AP Specimen 10/22/2014 11:21 10/22/2014 AM EST 11:21 AM EST Narrative JOSEFINA GILES - 10/22/2014 11:21 AM EST Specimen requisition ordered. ??Separate Pathology report to follow Renetta Thomson MD PATHOLOGY/CYTOLOGY ORDERABLE S Performing Organization Address City/[facility]/ZIP Code Phon e Number [address] JOSEFINA GILES UPPER GI ENDOSCOPY (10/22/2014 10:24 AM EST) Component Value Ref Test Analysis Performed At [facility] Range Method Time Signature UPPER GI [facility] Endoscopy Patient Name: Hardik Escudero ? Procedure Date: 10/22/2014 10:24 AM ? Date of : 1945 ? Age: 69 ? Order #: [id number] ? Procedure: ? Upper GI endoscopy Indications: ? Lin's high grade dysplasia, ? Follow-up of previous ablatio n ? treatment of Lin's esopha fallon, ? Follow-up of endoscopic mucos al ? resection of Lin's esopha fallon, ? f/up IMC Providers: ? Eric Livingston MD, Renetta Dao [facility] er, ? , Bo Hendrix, RN, Trace alvares ? Allan, Distribution Engineer Referring : ?Victor M Jeff, DO Medicines: ? Propofol [...] stacked scans were also ? performed to solvent recoverer the length of previous ? Lin's. The [...] in 6 ? months for follow-up of [place] tt's ? ablation. ? - The attending physician jaime grey ? above was present for the ent kalpana ? procedure. ? Eirc Livingston MD 10/22/2014 11:46 AM This report [...] Active and Recently Administered Medications Care Teams Edge Gluer Relationship Specialty Start Date End Date Victor M Jeff DO PCP - General 03/14/[address] [place] [address] documented as of this encounter
--- OUTSIDE RECORDS SUMMARY | 2022-08-10 23:23 | XMS_ITS | Encounter Summary ---
:1945 Author Organization [place] [address] Care Team Providers Name Role Phone Victor M Jeff DO Primary Care Provider Reason for Visit Reason Comments Medication Refill Encounter Details Date Type Department Care Team Description 06/24/2018 Refill Gastroenterology at [facility] Eric Livingston, Lin's esophagus [facility] Norm [place] [address] [facility] [phone] DR GASTROENTEROLOGY DEPT. [place], [place] [address] Social History Tobacco Use Types [...] esophagus documented in this encounter Care Teams Finished Cigar Maker Relationship Specialty Start Date End Date Victor M Jeff DO PCP - General 03/14/[address] [place] [address] documented as of this encounter
--- OUTSIDE RECORDS SUMMARY | 2022-08-10 23:23 | XMS_ITS | Encounter Summary ---
:1945 Author Organization [facility] [place] [address] Care Team Providers Name Role Phone Victor M Jeff Primary Care Provider Encounter Details Date Type Department Care Team Description 05/16/2016 Hospital Encounter [facility] [place] [facility] [facility] [place] [address] [facility] [phone] [facility] DEPT. [place], [place] [address] Social History Tobacco Use Types [...] Reading Time Taken Comments Blood Pressure 104/67 05/16/2016 9:15 AM EDT Pulse 64 05/16/2016 7:39 AM EDT Temperature - - Respiratory Rate 16 05/16/2016 7:39 AM EDT Oxygen Saturation 97% 05/16/2016 9:20 AM EDT Inhaled Oxygen Concentration - - Weight 88.5 kg (195 lb) 05/16/2016 7:39 AM EDT Height 180.3 cm (5' 11) 05/16/2016 7:39 AM EDT Body Mass Index 27.2 05/16/2016 7:39 AM EDT documented in this encounter Discharge Instructions Discharge InstructionsNatalie Little, RN - 05/16/2016 9:29 AM EDT Images from the original note were not included. [facility] Upper GI Endoscopy: What to Expect at [...] the day after the test, use an [id number] spray to numb your throat. Follow-up care [...] more? Visit our health information library at [email or web address] You can also view health information on [email or web address], your personal patient account. Log in or sign up today. Enter J454 in the search box to learn more about Upper GI Endoscopy: What to Expect at Home. ?? [id number] [employer]. Care instructions adapted under license by [facility]. This care instruction is for use with your licensed healthcare professional. If you have questionsabout a medical condition or this instruction, always ask your healthcare professional. [employer] disclaims any warranty or liability for your use of this information. Content Version: 10.4.501197; Current as of: July 24, 2014 Patient InstructionsGoEric ferreiar MD - 05/16/2016 9:16 AM EDT Please [...] Livingston MD - 05/16/2016 9:16 AM EDT [facility] Operative Note Patient Name: Hardik Arevalo : [id number] MR#: [id number] Case Date: 05/16/2016 Surgeon: Surgeon(s) and Role: [...] MULTIPLE (WRVU miles s ablation 2.49) CONSULT EGD, UPPER GI ENDOSCOPY 05/16/2016 8:12 6 mon f/u from AM EDT 10/22/14 barretts ablatio n CONSULT UPPER GI ENDOSCOPY Routine 05/16/2016 7:49 Result s for this AM EDT procedure are i n the results section. documented in this encounter Results Surgical Pathology Report (05/16/2016 9:18 AM EDT) Component Value Ref Test Analysis Performed At [facility] Range Method Time Signature Surgical [id number] ? Location: 4T; [facility]; [facility] Pathology [place] Report The signing pathologist has (i) examined [...] Squamous esophageal and gastric-type mucosa within mild chrome plater shirley inflammation. No intestinal metaplasia or dysplasia [...] Organization Address City/State/[place] [address] Specimen to Pathology (surgical or derm) (05/16/2016 9:18 AM EDT) Specimen Anatomical Collection Method Collection Time Receive d Time (Source) Location / / Volume Laterality AP Specimen 05/16/2016 9:18 AM 6 9:18 EDT AM EDT Narrative [facility] OR - 05/16/2016 9:18 AM EDT Specimen requisition ordered. ??Separate Pathology report to follow Eric Livingston MD PATHOLOGY/CYTOLOGY ORDERABLE S Performing Organization Address City/[facility]/[place] [address] Specimen to Pathology (surgical or derm) (05/16/2016 9:18 AM EDT) Specimen Anatomical Collection Method Collection Time Receive d Time (Source) Location / / Volume Laterality AP Specimen 05/16/2016 9:18 AM 6 9:18 EDT AM EDT Narrative [facility] OR - 05/16/2016 9:18 AM EDT Specimen requisition ordered. ??Separate Pathology report to follow Eric Livingston MD PATHOLOGY/CYTOLOGY ORDERABLE S Performing Organization Address City/[facility]/[place] [address] Specimen to Pathology (surgical or derm) (05/16/2016 9:18 AM EDT) Specimen Anatomical Collection Method Collection Time Receive d Time (Source) Location / / Volume Laterality AP Specimen 05/16/2016 9:18 AM 6 9:18 EDT AM EDT Narrative [facility] OR - 05/16/2016 9:18 AM EDT Specimen requisition ordered. ??Separate Pathology report to follow Eric Livingston MD PATHOLOGY/CYTOLOGY ORDERABLE S Performing Organization Address City/State/[place] [address] Specimen to Pathology (surgical or derm) (05/16/2016 9:18 AM EDT) Specimen Anatomical Collection Method Collection Time Receive d Time (Source) Location / / Volume Laterality AP Specimen 05/16/2016 9:18 AM 6 9:18 EDT AM EDT Narrative [facility] - 05/16/2016 9:18 AM EDT Specimen requisition ordered. ??Separate Pathology report to follow Eric Livingston MD PATHOLOGY/CYTOLOGY ORDERABLE S Performing Organization Address City/[facility]/[place] [address] Specimen to Pathology (surgical or derm) (05/16/2016 9:18 AM EDT) Specimen Anatomical Collection Method Collection Time Receive d Time (Source) Location / / Volume Laterality AP Specimen 05/16/2016 9:18 AM 6 9:18 EDT AM EDT Narrative [facility] - 05/16/2016 9:18 AM EDT Specimen requisition ordered. ??Separate Pathology report to follow Eric Livingston MD PATHOLOGY/CYTOLOGY ORDERABLE S Performing Organization Address City/[facility]/[place] [address] Specimen to Pathology (surgical or derm) (05/16/2016 9:18 AM EDT) Specimen Anatomical Collection Method Collection Time Receive d Time (Source) Location / / Volume Laterality AP Specimen 05/16/2016 9:18 AM 6 9:18 EDT AM EDT Narrative [facility] - 05/16/2016 9:18 AM EDT Specimen requisition ordered. ??Separate Pathology report to follow Eric Livingston MD PATHOLOGY/CYTOLOGY ORDERABLE S Performing Organization Address City/[facility]/[place] [address] Specimen to Pathology (surgical or derm) (05/16/2016 9:18 AM EDT) Specimen Anatomical Collection Method Collection Time Receive d Time (Source) Location / / Volume Laterality AP Specimen 05/16/2016 9:18 AM 6 9:18 EDT AM EDT Narrative [facility] - 05/16/2016 9:18 AM EDT Specimen requisition ordered. ??Separate Pathology report to follow Eric Livingston MD PATHOLOGY/CYTOLOGY ORDERABLE S Performing Organization Address [facility]/State/[place] [address] UPPER GI ENDOSCOPY (05/16/2016 7:49 AM EDT) Component Value Ref Test Analysis Performed At [facility] Range Method Time Signature UPPER GI [facility] Endoscopy Procedure Date: 05/16/2016 7:49 AM ? Patient Name: Hardik Arevalo ? N: [id number] ? Date of : 1945 ? Age: 71 ? Order #: [id number] ? Instrument Name: [id number] ? Procedure: ? Upper GI endoscopy Indications: ? 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 previous ablation treatment o f ? Miles's esophagus, Post end oscopic ? mucosal resection for Miles 's ? esophagus with dysplasia Providers: ? Eric Livingston MD, Bentley Messer. ? , POOL, Bo Gilmore MD: ?Victor M Jeff, DO [...] ? cm from the incisors at the GE Jct. There were no ? masses or [...] at 100 mL/hr, Intravenous, CO NTINUOUS, Starting e 05/16/16 at 0800, Until Sun05/16/16 at 0934, Endo (Day of Procedure) documented in this encounter Care Teams Service Center Assistant Relationship Specialty Start Date End Date Victor M Jeff DO PCP - General 03/14/[address] [place] [address] (work) documented as of this encounter
--- OUTSIDE RECORDS SUMMARY | 2022-08-10 23:23 | XMS_ITS | Encounter Summary ---
:1945 Author Organization [facility] [place] [address] Care Team Providers Name Role Phone Victor M Jeff DO Primary Care Provider Reason for Visit Reason Comments Medication Refill Encounter Details Date Type Department Care Team Description 09/25/2017 Refill Gastroenterology at [facility] [place] Eric Livingston, Lin's esophagus [facility] [place] [address] [facility] [phone] DR GASTROENTEROLOGY DEPT. [place], [place] [address] Social History Tobacco Use Types [...] esophagus documented in this encounter Care Teams Grade Checker Relationship Specialty Start Date End Date Victor M Jeff DO PCP - General 03/14/[address] [place] [address] documented as of this encounter
--- OUTSIDE RECORDS SUMMARY | 2022-08-10 23:24 | XMS_ITS | Encounter Summary ---
:1945 Author Organization [place] [address] Care Team Providers Name Role Phone Victor M Jeff DO Primary Care Provider Encounter Details Date Type Department Care Team Description 08/26/2013 Anesthesia Event [place] [facility] [place] Parker Peres [facility] [place] [address] [facility] [phone] DR ANESTHESIOLOGY [place], [place] [address] (Wo rk) Anesthesia Record Procedure Summary Procedure Name Responsible Anesthesia Start Anesthesia Stop Time Anesthesiologist Time EGD, UPPER GI Parker Peres MD 08/26/13 1002 3 1039 ENDOSCOPY (Trunk) Events Date Time Event Comment 08/26/2013 0943 1002 AN Verify 1002 Start 1007 An Start Data 1007 An Induction 1008 Anesthesia Ready 1031 an stop data 1039 Stop Name Total Propofol 190 mg Propofol INF 393.75 mg lactated ringers infusion 0 mL Agents Name O2 Auxiliary Flowmeter 1 Blood No blood administrations on file. Lines, Drains, and Airways Type Details Placement Removal PIV 08/26/13; 0942; 08/26/13; 08/26/13 0942 by Sara delvalle, 08/26/13 1125 by 1125 POOL Junior Sylvi e, RN documented in this encounter Social History Tobacco Use Types Packs/Day Years Used Date Smoking Tobacco: Every Day Alcohol Use Standard Drinks/Week Comments No 0 (1 standard drink = 0.6 oz pure alcoho l) Sex Assigned at Date Recorded Not on file documented as of this encounter OR Notes Anesthesia Postprocedure Evaluation - Parker Peres MD - 08/26/2013 11:31 AM EST Patient: Hardik Arevalo Procedure(s) Performed: Procedure(s): EGD, UPPER GI ENDOSCOPY Actual Anesthetic: MAC Patient location: PACU Post-op pain: Adequate analgesia Post-op nausea: no nausea or vomiting Last Vitals: Filed Vitals: 08/26/13 1044 BP: 153/79 Pulse: 68 Resp: Post-op cardiovascular and respiratory status: is stable Level of consciousness: awake, alert and oriented Complications: no apparent complications and tolerated the procedure well Fluid Status: normal Anesthesia Preprocedure Evaluation - Parker Peres MD - 08/25/2013 9:52 PM EST Pre-Anesthesia Evaluation for: Hardik Arevalo a 68 y.o. male. Procedure(s): EGD, UPPER GI ENDOSCOPY Patient Active Problem List Diagnosis ??? Intramucosal esophageal cancer No past medical history on file. Past Surgical History Procedure Date ??? Endoscopic us exam, esoph 03/19/2013 UPPER EUS- ENDOSCOPIC ULTRASOUND performed by Eric Livingston MD at [facility] ENDOSCOPY History Substance Use Topics ??? Smoking status: Former Smoker ??? Smokeless tobacco: Not on file ??? Alcohol Use: No History Drug Use No No Known Allergies Medications: MAR and/or home medications have been reviewed. Physical Exam: There were no vitals filed for this visit. There is no height or weight on file to calculate BMI. Airway Assessment: Mallampati: II TM distance: >3 FB Neck ROM: full Cardiovascular Assessment: cardiovascular exam normal Pulmonary Assessment: pulmonary exam normal Dental Assessment: Misc Assessment: IV access: Peripheral line Other exam findings: Poor dentition all teeth are loose according to PT. Anesthesia Plan: ASA 2 MAC, with a(n) intravenous induction 68 y/o male former cigarette smoker with esophageal cancer, Lin's esophagus, GERD (well-controlled), HLD, tubular adenomas GI tract presents for EGD. No problems with anesthesia. No hx family problems with anesthesia. Denies CP. 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 Region - Other Informed Consent: Anesthetic plan and risks discussed with patient. Plan discussed with GOVERNMENT GUARD. Mayra. Assessment: documented in this encounter Plan of Treatment Not on filedocumented as of this encounter Visit Diagnoses Not on filedocumented in this encounter Administered Medications Inactive Administered Medications - up to 3 most recent administrations Medication Order MAR Action Action Date Dose Rate Site lactated ringers infusion New Bag 08/26/2013 10:02 AM EST mL 100 mL/hr, Intravenous, CONTINUOUS, Starting on Sun08/26/13 at 1000, Until Sun08/26/13 at 1126, Endoscopy (Day of Procedure) propofol (DIPRIVAN) 10 mg/mL bolus injection Given 10:25 AM EST 20 mg (Anesthesia) PRN, Starting on Sun08/26/13 at 1009, Until Sun08/26/13 at 1039, Anesthesia Intra-op Given 08/26/2013 10:15 AM EST 50 mg Given 08/26/2013 10:09 AM EST 120 mg propofol (DIPRIVAN) Rate/Dose Change 08/26/2013 10:25 100 mcg/kg/min 54 mL/hr infusion AM EST CONTINUOUS PRN, Starting on Sun08/26/13 at 1008, Until Sun08/26/13 at 1039, Anesthesia Intra-op, Routine New Bag 08/26/2013 10:08 AM EST 175 mcg/kg/min 94.5 mL/hr documented in this encounter Care Teams C.O.D. Clerk Relationship Specialty Start Date End Date Victor M Jeff DO PCP - General 03/14/[address] [place] [address] documented as of this encounter
--- OUTSIDE RECORDS SUMMARY | 2022-08-10 23:24 | XMS_ITS | Encounter Summary ---
:1945 Author Organization [facility] [place] [address] Care Team Providers Name Role Phone TomerVictor M alvarado Primary Care Provider Encounter Details Date Type Department Care Team Description 08/26/2013 Hospital Encounter [facility] at [facility] [place] [address] [facility] [phone] [facility] [place], [place] [address] Social History Tobacco Use Types Packs/Day Years Used Date Smoking Tobacco: Every Day Alcohol Use Standard Drinks/Week Comments No 0 (1 standard drink = 0.6 oz pure alcoho l) Sex Assigned at Date Recorded Not on file documented as of this encounter Last Filed Vital Signs Vital Sign Reading Time Taken Comments Blood Pressure 153/79 08/26/2013 10:44 AM EST Pulse 68 08/26/2013 10:44 AM EST Temperature - - Respiratory Rate 16 08/26/2013 9:36 AM EST Oxygen Saturation 97% 08/26/2013 10:44 AM EST Inhaled Oxygen Concentration - - Weight - - Height - - Body Mass Index - - documented in this encounter Discharge Instructions Discharge InstructionsPeg Riojas RN - 08/26/2013 10:48 AM EST UPPER GI ENDOSCOPY with THERMAL ABLATION WHAT TO EXPECT AFTER THE PROCEDURE After [...] slowly. You may lose your balance unexpectedly ?? Be careful on stairs, as you may be unsteady on your feet. FOR THE NEXT 24 HRS ?? DO NOT DRIVE OR OPERATE ANY MACHINERY ?? DO NOT DRINK ALCOHOLIC BEVERAGES ?? DO NOT SIGN LEGAL DOCUMENTS ?? If you are a smoker: DO NOT SMOKE WHILE YOU ARE ALONE Diet Start with clear liquids and progress to full liquids over the next 24 to 36 hours. Then go On To soft for next 3-4 days. If all is well then you can go to as tolerated ?? Drink plenty of fluids ( unless otherwise told not to) Medications You may have a mild sore throat and some chest discomfort. Ice chips, popsicles, over the counter throat lozenges, tylenol (acetaminophen) or spray may help numb your throat or control the discomfort.If pain medication has been prescribed, use it as indicated. The sore throat should resolve on it's own. This procedure should not cause a fever. [...] not get better as expected. [facility] [phone] 8a-5p Same Day Endo [phone] 7a-8p Otherwise contact [phone] and ask to speak to the international travel consultant cardiology consultant Follow-up care is a easley part of your treatment and safety. Be sure to make and go to all appointments, and call your doctor if you are having problems. Instructions have been reviewed and patient expresses understanding Patient InstructionsEric Livingston MD - 08/26/2013 10:52 AM EST Please see Recommendations in the Provation procedure report which is documented in the procedural note in [facility]. documented in this encounter Medications at Time of Discharge Medication Sig Dispensed Refills Start Date End Date omeprazole (PRILOSEC) 20 Take 20 mg by mouth 0 mg capsule 2 times daily. oxyCODONE (ROXICODONE) 5 Take 5-10 mLs by 200 mL 0 12/1010/22/2014 mg/5 mL solution mouth every 4 hours as needed for Pain. sucralfate (CARAFATE) Take 10 mLs by mouth 400 mL 0 08/1009/05/2013 100 mg/mL suspension 4 times daily for 10 days. OXYcodone (ROXICODONE) 5 Take 5-10 mLs by 200 mL 0 08/2612/10/2013 mg/5 mL solution mouth every 4 hours as needed for Pain. omeprazole (PRILOSEC) 40 Take 1 capsule by 60 capsule 05/1105/20/2014 mg capsule mouth 2 times daily (before meals). documented as of this encounter H&P Notes Eric Livingston MD - 08/26/2013 9:53 AM EST Gastroenterology and Hepatology Pre-Procedure History and Physical Exam Procedure: EGD Indication: F/up Lin's HGD/IMC s/p EMR followed by RFA. Patient Active Problem List Diagnosis Code ??? 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 Risks and benefits of the procedure explained to the patient. Consent signed. documented in this encounter Miscellaneous Notes Miscellaneous - Provider, Scanning - 08/26/2013 9:17 PM EST Miscellaneous - Provider, Scanning - 08/26/2013 9:17 PM EST Op Note - Eric Livingston MD - 08/26/2013 10:52 AM EST [facility] Operative Note Patient Name: Hardik Arevalo : [id number] MR#: [id number] Case Date: 08/26/2013 Surgeon: Surgeon(s) and Role: * Eric Livingston MD - Primary * Anthony Brice MD - Fellow Preoperative diagnosis: Repeat EGD/Barrx 3 mos. Consult Postoperative diagnosis: * No post-op diagnosis entered * Procedure(s): EGD, UPPER GI ENDOSCOPY Full procedure note is documented under the Procedure section of [facility]. Miscellaneous - Provider, Scanning - 08/26/2013 9:52 AM EST documented in this encounter Plan of Treatment Not on filedocumented as of this encounter Procedures Procedure Name Priority Date/Time Associated Diagnosis Comme nts EGD, UPPER GI 08/26/2013 10:02 AM Repeat EGD/Barrx 3 ENDOSCOPY EST mos. Consult UPPER GI ENDOSCOPY Routine 08/26/2013 9:56 AM Res ults for this EST procedure are i n the results section. documented in this encounter Results UPPER GI ENDOSCOPY (08/26/2013 9:56 AM EST) Component Value Ref Test Analysis Performed At [facility] Range Method Time Signature UPPER GI [facility] ENDOSCOPY Endoscopy Patient Name: Hardik Arevalo ? Procedure Date: 08/26/2013 9:56 AM ? Date of : 1945 ? Age: 68 ? Order #: [id number] ? Procedure: ? Upper GI endoscopy Indications: ? Lin's high grade dysplasia, ? Follow-up of previous ablatio n ? treatment of Lin's esopha fallon, ? Post endoscopic mucosal resec tion for ? Lin's esophagus with dysp lasia Providers: ? Eric Livingston MD, Bentley Messer. ? , POOL, Merna Gilmore MD: ?Victor M Jeff DO, Redd Oseguera Walk o, ? ,FACS Medicines: ? Monitored Anesthesia Care Complications: ? [...] procedure based on ? age 65 or older, patient's hi story of ? problems with anesthesia and complex ? procedure (ERCP, EUS, Barrx R FA). ? The procedure, indications, b enefits, ? [...] the procedu re well. ? Findings: ? Patchy residual Lin's esophagus was present, ? extending from the upper extent of the gastric folds ? which were at 34 cm from the incisors (short ? circumferential tongues) to the Z-line which was at ? 28 cm from the incisors with small patchy 2-3 islands ? to 28 cm (5% residual). ? A medium-sized hiatus hernia was found. The proximal ? extent of the gastric folds (end of tubular ? esophagus) was 34 cm from the incisors. The hiatal ? narrowing was 39 cm from the incisors. ? Otherwise normal stomach including retroflex view of ? cardia and fundus. ? The duodenal bulb was normal. ? A large diverticulum was found in the second part of ? the duodenum. ? Focal radiofrequency ablation of residual Lin's ? esophagus was performed. With the endoscope in place, ? the position and extent of the Lin's mucosa and ? the anatomic landmarks including proximal and distal ? extent of Lin's and top of gastric folds were ? noted. The Lin's mucosa was irrigated with water. ? Gastric and esophageal contents were suctioned. The ? endoscope was then removed from the patient. The ? Halo-90 radiofrequency ablation catheter was attached ? to the tip of the endoscope. The endoscope with the ? attached radiofrequency ablation catheter was then ? passed transorally under direct vision into the ? esophagus and advanced to the areas of Lin's ? mucosa. The areas included islands and ? circumferential areas of Lin's mucosa. The ? radiofrequency ablation catheter was placed in ? contact with the surface of the Lin's mucosa ? under direct visualization and energy was applied ? twice at 12 J/cm2. Ablation was repeated in a ? likewise fashion to all visible Lin's mucosa (13 ? double hits). The ablation zone was cleaned of ? coagulative debris. The ablation catheter and ? endoscope were then removed and the catheter was ? cleaned. The catheter and endoscope were reinserted ? into the esophagus. A second round of ablation was ? then performed. Energy was applied twice at 12 J/cm2 ? to retreat the areas of Lin's epithelium that had ? been treated with the first series of ablation (14 ? additional double hits). The areas of the esophagus ? where Lin's mucosa had been ablated were ? carefully examined. Areas of Lin's esophagus were ? completely treated. ? Impression: ?- Small amount of residual Lin 's ? esophagus. ? - Hiatus hernia. ? - Normal duodenal bulb. ? - Duodenal diverticulum. ? - Focal radiofrequency ablati on for ? residual Lin's esophagus ? performed (using the Halo-90 Ablation ? Catheter). Recommendation: ?- Clear liquid diet x 24 hours, then ? soft diet for 7-10 days. ? - Double dose PPI. ? - May use pain medication as needed. ? - Repeat the upper endoscopy in 3 ? months for follow-up of [place] tt's ? ablation. ? Eric Livingston MD 08/26/2013 10:46 AM This report has been signed electronically. Number of Addenda: 0 Note Initiated On: 08/26/2013 9:56 AM Specimen (Source) Anatomical Collection Method Collection Time Re ceived Time Location / / Volume Laterality 08/26/2013 9:56 AM EST Victor M Jeff DO GENERAL SURGICAL ORDERABLES Performing Organization Address City/State/ZIP Code Phon e Number [employer] documented in this encounter Visit Diagnoses Not on filedocumented in this encounter Active and Recently Administered Medications Times are shown in EST. Continuous Medication Order 08/24/2013 08/25/2013 08/26/2013 lactated ringers infusion (CANCELED) 1000 (Due)1002 (New Bag - Provider: Parker Peres MD)1005 (Anesthesia Volume Adjustment - Provider: Parker Peres MD)1025 (Anesthesia Volume Adjustment - Provider: Parker Peres MD) 100 mL/hr, at 100 mL/hr, Intravenous, CO NTINUOUS, Starting Sun08/26/13 at 1000, Until Sun08/26/13 at 1126, Endo (Day of Procedure) documented in this encounter Care Teams Shipbuilding Draftsperson Relationship Specialty Start Date End Date Victor M Jeff DO PCP - General 03/14/[address] [place] [address] documented as of this encounter
--- OUTSIDE RECORDS SUMMARY | 2022-08-10 23:24 | XMS_ITS | Encounter Summary ---
:1945 [place] [address] Care Team Providers Name Role Phone Victor M Jeff DO Primary Care Provider Encounter Details Date Type Department Care Team Description 03/19/2013 Orders Only [facility] Victor M Shelton DO [id number] [place] [phone] Social History Tobacco Use Types Packs/Day Years Used Date Smoking Tobacco: Former Alcohol Use Standard Drinks/Week Comments No 0 (1 standard drink = 0.6 oz pure alcoho l) Sex Assigned at Date Recorded Not on file documented as of this encounter Plan of Treatment Not on filedocumented as of this encounter Procedures Procedure Name Priority Date/Time Associated Comments Diagnosis UPPER EUS-ENDOSCOPIC Routine 03/19/2013 12:48 PM Results for this ULTRASOUND EDT procedure are i n the results section. documented in this encounter Results UPPER EUS-ENDOSCOPIC ULTRASOUND (03/19/2013 12:48 PM EDT) Component Value Ref Test Analysis Performed At [facility] Method Time Signature UPPER [facility] ENDOSCOPIC Endoscopy ULTRASOUND _ Patient Name: Hardik Arevalo ? Procedure Date: 03/19/2013 12:48 PM ? Date of : 1945 ? Age: 68 ? Order #: [id number] ? Procedure: ? Upper EUS Indications: ? Lin's with HGD and IMC-r/o ? invasive cancer Providers: ? Eric Livingston MD, Anthony Dao ? MD Babs, Sandy Little, R Jose, Julisa ? Marcello Hussein, Entry Level Software Engineer Referring : ?Victor M Jeff, DO Medicines: ? Monitored [...] with mild systemic di sease. ? - Anesthesia under the superv ision of ? an anesthesiologist using IV propofol ? was determined to be medicall y ? necessary for this procedure based on ? age 65 or older and complex p rocedure ? (ERCP, EUS). ? The procedure, indications, b enefits, ? risks and alternatives were e xplained ? to the patient. Specifically ? discussed were potential ? complications including, but not ? limited to, bleeding, perfora tion, ? infection, missing a cancer, and ? adverse medication reactions. The ? Endosonoscope was introduced through ? the mouth, and advanced to th e second ? part of duodenum. The patient ? tolerated the procedure well. ? Findings: ? Endosonographic Finding : ? There was no sign of significant endosonographic ? abnormality in the esophagus. No pathologic ? lymphadenopathy, no masses and no wall thickening ? were identified. ? Endoscopic exam: see EGD report. ? Normal visualized portions of the left lobe liver ? (limited exam), pancreas and CBD. ? Impression: ?- There was no sign of esophageal ? mass or invasive cancer or ? lymphadenopathy by EUS. Recommendation: ?- Perform an upper GI endoscopy toda y ? for possible EMR of ablation of ? Lin's. ? - The attending physician jaime grey ? above was present for the ent kalpana ? procedure. ? Eric Livingston MD 03/19/2013 2:13 PM This report has been signed electronically. Number of Addenda: 0 Note Initiated On: 03/19/2013 12:48 PM Specimen (Source) Anatomical Collection Method Collection Time Re ceived Time Location / / Volume Laterality 03/19/2013 12:48 PM EDT Victor M Jeff DO GENERAL SURGICAL ORDERABLES Performing Organization Address City/State/ZIP Code Phon e Number [employer] documented in this encounter Visit Diagnoses Not on filedocumented in this encounter Care Teams Cardiac Exercise Physiologist Relationship Specialty Start Date End Date Victor M Jeff DO PCP - General 03/14/[address] [place] [address] documented as of this encounter
--- OUTSIDE RECORDS SUMMARY | 2022-08-10 23:24 | XMS_ITS | Encounter Summary ---
:1945 Author Organization [facility] Address [address] [place] [address] Care Team Providers Name Role Phone TomerVictor M alvarado Primary Care Provider Encounter Details Date Type Department Care Team Description 03/24/2014 Surgery G[place]ology at [facility] Eric Livingston, EGD WITH BIOPSY ([facility] Norm whitehead MD 2.49) [place] [address] [facility] [phone] GASTROENTEROLOGY DEPT. [place], [place] [address] Social History Tobacco Use Types Packs/Day Years Used Date Smoking Tobacco: Every Day Tobacco Cessation: Ready to Quit: No Alcohol Use Standard Drinks/Week Comments No 0 (1 standard drink = 0.6 oz pure alcoho l) hunting season Sex Assigned at Date Recorded Not on file documented as of this encounter Last Filed Vital Signs Vital Sign Reading Time Taken Comments Blood Pressure 164/94 03/24/2014 9:10 AM EDT R 155/96 Pulse 60 03/24/2014 9:10 AM EDT Temperature 36.3 ??C (97.3 ??F) 03/24/2014 9:10 AM EDT Respiratory Rate 18 03/24/2014 9:10 AM EDT Oxygen Saturation 99% 03/24/2014 9:10 AM EDT Inhaled Oxygen Concentration - - Weight 87.1 kg (192 lb) 03/24/2014 9:10 AM EDT Height 180.3 cm (5' 11) 03/24/2014 9:10 AM EDT Body Mass Index 26.78 03/24/2014 9:10 AM EDT documented in this encounter Discharge Instructions Discharge InstructionsPatricia Quintero RN - 03/24/2014 10:54 AM EDT UPPER GI ENDOSCOPY with THERMAL ABLATION WHAT [...] need emergency care. For example, call if: UPPER GI ENDOSCOPY WHAT TO EXPECT AFTER [...] not get better as expected. [facility] [phone] 8a-5p Same Day Endo [phone] 7a-8p Otherwise contact [phone] and ask to speak to the inventory and pricing associate web content specialist Follow-up care is a easley part of your treatment and safety. Be sure to make and go to all appointments, and call your doctor if you are having problems. Instructions have been reviewed and patient expresses understanding Patient InstructionsEric Livingston MD - 03/24/2014 11:09 AM EDT Please see Recommendations in the [...] encounter H&P Notes Eric Livingston MD - 03/24/2014 9:39 AM EDT Gastroenterology and Hepatology Pre-Procedure History and Physical Exam Procedure: EGD: Indication: F/up ER and RFA of Lin's with IMC and HGD. Patient Active Problem List Diagnosis Code ??? 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 Risks and benefits of the procedure explained to the patient. Consent signed. documented in this encounter Miscellaneous Andrea Stovall - Provider, Scanning - 03/24/2014 9:56 PM EDT Sia - Provider, Scanning - 03/24/2014 9:53 PM EDT Sia - Provider, Scanning - 03/24/2014 2:58 PM EDT Op Note - Eric Livingston MD - 03/24/2014 11:09 AM EDT [facility] Operative Note Patient Name: Hardik Escudero : [id number] MR#: [id number] Case Date: 03/24/2014 Surgeon: Surgeon(s) and Role: * Eric Livingston MD - Primary Preoperative diagnosis: Repeat EGD/Barrx in 3-4 mos last egd 4/2 consult Postoperative diagnosis: * No post-op diagnosis entered * Procedure(s): EGD WITH BIOPSY Full procedure note is documented under the Procedure section of eDH. documented in this encounter Plan of Treatment Not on filedocumented as of this encounter Procedures Procedure Name Priority Date/Time Associated Diagnosis Comme nts SURGICAL PATHOLOGY Routine 03/24/2014 11:13 AM Re sults for this REPORT EDT procedure are i n the results section. SPECIMEN TO Routine 03/24/2014 11:13 AM Results for this PATHOLOGY EDT procedure are i n the results section. SPECIMEN TO Routine 03/24/2014 11:13 AM Results for this PATHOLOGY EDT procedure are i n the results section. SPECIMEN TO Routine 03/24/2014 11:13 AM Results for this PATHOLOGY EDT procedure are i n the results section. SPECIMEN TO Routine 03/24/2014 11:13 AM Results for this PATHOLOGY EDT procedure are i n the results section. SPECIMEN TO Routine 03/24/2014 11:13 AM Results for this PATHOLOGY EDT procedure are i n the results section. SPECIMEN TO Routine 03/24/2014 11:13 AM Results for this PATHOLOGY EDT procedure are i n the results section. EGD WITH BIOPSY 03/24/2014 9:57 AM Repeat EGD/Barrx in (WRVU 2.49) EDT 3-4 mos last egd 4/2 consult UPPER GI ENDOSCOPY Routine 03/24/2014 9:44 AM Res ults for this EDT procedure are i n the results section. documented in this encounter Results Surgical Pathology Report (03/24/2014 11:13 AM EDT) [facility] gist Method Time Signature Surgical CERNER Pathology ? [facility] Report ? Provider: ?? ERIC LIVINGSTON ?Pt. Name: ?? HARDIK ESCUDERO ? Acc #: ?[id number] ?Pt. MRN: ?[id number] ? Col Date: ?? 4 ? /Sex: ?1945,(69 years),Male ? Rec Date: ?? 03/24/2014 ? LOC: ?4T ? SURGICAL PATHOLOGY ? ---Pathologic Diagnosis--- ? Endoscopic biopsies - ? A. Esophageal squamous mucosa within normal limits. ? B. Esophageal squamous mucosa within normal limits. ? C. Esophageal squamous mucosa within normal limits. ? D. Esophageal squamous mucosa within normal limits. ? E. Esophageal squamous mucosa within normal limits. ? F. Squamous esophageal and cardiac mucosa with chroni c nonspecific ? gastritis. No goblet cell metaplasia is seen. ? CR-PX ? 03/25/14 ? AAS ? 03/25/14 Verified by: ? Kinga Magana MD ? Pathologist ? (Electronic Si gnature) ? The attending pathologist whose signature appears o n this report has ? reviewed all diagnostic slides and has edited the isabel ss and/or ? microscopic portion of the report in rendering the fi nal pathologic ? diagnosis. ? ---Gross Description--- ? A - Labeled/Fixative: BX esophagus at 29 cm, formalin . ? Quantity/Size: Three, ranging from 0.3-0.6 cm. ? Tissue Description: Soft, white tissues. ? Sections/Processing: (T1) ? B - Labeled/Fixative: BX esophagus at 27 cm, formalin . ? Quantity/Size: Four, ranging from 0.2-0.5 cm. ? Tissue Description: Soft, white tissues. ? Sections/Processing: (T1) ? C - Labeled/Fixative: BX esophagus at 31 cm, formalin . ? Quantity/Size: Four, averaging 0.3 x 0.1 cm. ? Tissue Description: Soft, white tissues. ? Sections/Processing: (T1) ? [facility] ? Provider: ?? ERIC LIVINGSTON ?Pt. Name: ?? HARDIK ESCUDERO ? Acc #: ?[id number] ?Pt. MRN: ?[id number] ? Col Date: ?? 4 ? /Sex: ?1945,(69 years),Male ? Rec Date: ?? 03/24/2014 ? LOC: ?4T ? SURGICAL PATHOLOGY ? D - Labeled/Fixative: BX esophagus at 33 cm, formalin . ? Quantity/Size: Three, ranging from 0.2-0.5 cm. ? Tissue Description: Soft, white tissues. ? Sections/Processing: (T1) ? E - Labeled/Fixative: BX esophagus at 35 cm, formalin . ? Quantity/Size: Three, ranging from 0.3-0.8 cm. ? Tissue Description: Soft, white tissues. ? Sections/Processing: (T1) ? F - Labeled/Fixative: BX GE junction at 37 cm, formal in. ? Quantity/Size: Multiple, ranging from 0.2-0.5 cm. ? Tissue Description: Soft, white tissues. ? Sections/Processing: (T2) ??sns ? ---Clinical Information--- ? Specimen Submitted: ? A - Bx esophagus at 29 cm ? B - Bx esophagus at 27 cm ? C - Bx esophagus at 31 cm ? D - Bx esophagus at 33 cm ? E - Bx esophagus at 35 cm ? F - Bx ge jct at 37 cm ? Clinical History: ? History of Lin's with HGD and IMC status post ER and RFA ? Clinical Diagnosis: ? Rule out residual Lin's or dysplasia Specimen (Source) Anatomical Collection Method Collection Time Re ceived Time Location / / Volume Laterality 03/24/2014 11:13 AM EDT Eric Livingston MD PATHOLOGY/CYTOLOGY ORDERABLE S Performing Organization Address [facility]/[place] [address] CERNER MILLENNIUM Specimen to Pathology (surgical or derm) (03/24/2014 11:13 AM EDT) Specimen Anatomical Collection Method Collection Time Receive d Time (Source) Location / / Volume Laterality AP Specimen 03/24/2014 11:13 03/24/2014 AM EDT 11:13 AM EDT Narrative CERNER MILLENNIUM - 03/24/2014 11:13 AM EDT Specimen requisition ordered. ??Separate Pathology report to follow Eric Livingston MD PATHOLOGY/CYTOLOGY ORDERABLE S Performing Organization Address City/[facility]/[place] [address] CERNER MILLENNIUM Specimen to Pathology (surgical or derm) (03/24/2014 11:13 AM EDT) Specimen Anatomical Collection Method Collection Time Receive d Time (Source) Location / / Volume Laterality AP Specimen 03/24/2014 11:13 03/24/2014 AM EDT 11:13 AM EDT Narrative CERNER MILLENNIUM - 03/24/2014 11:13 AM EDT Specimen requisition ordered. ??Separate Pathology report to follow Eric Livingston MD PATHOLOGY/CYTOLOGY ORDERABLE S Performing Organization Address City/State/[place] [address] CERNER MILLENNIUM Specimen to Pathology (surgical or derm) (03/24/2014 11:13 AM EDT) Specimen Anatomical Collection Method Collection Time Receive d Time (Source) Location / / Volume Laterality AP Specimen 03/24/2014 11:13 03/24/2014 AM EDT 11:13 AM EDT Narrative CERNER MILLENNIUM - 03/24/2014 11:13 AM EDT Specimen requisition ordered. ??Separate Pathology report to follow Eric Livingston MD PATHOLOGY/CYTOLOGY ORDERABLE S Performing Organization Address City/State/[place] [address] CERNER MILLENNIUM Specimen to Pathology (surgical or derm) (03/24/2014 11:13 AM EDT) Specimen Anatomical Collection Method Collection Time Receive d Time (Source) Location / / Volume Laterality AP Specimen 03/24/2014 11:13 03/24/2014 AM EDT 11:13 AM EDT Narrative CERNER MILLENNIUM - 03/24/2014 11:13 AM EDT Specimen requisition ordered. ??Separate Pathology report to follow Eric Livingston MD PATHOLOGY/CYTOLOGY ORDERABLE S Performing Organization Address City/State/[place] [address] CERNER MILLENNIUM Specimen to Pathology (surgical or derm) (03/24/2014 11:13 AM EDT) Specimen Anatomical Collection Method Collection Time Receive d Time (Source) Location / / Volume Laterality AP Specimen 03/24/2014 11:13 03/24/2014 AM EDT 11:13 AM EDT Narrative CERNER MILLENNIUM - 03/24/2014 11:13 AM EDT Specimen requisition ordered. ??Separate Pathology report to follow Eric Livingston MD PATHOLOGY/CYTOLOGY ORDERABLE S Performing Organization Address City/State/[place] [address] CERNER MILLENNIUM Specimen to Pathology (surgical or derm) (03/24/2014 11:13 AM EDT) Specimen Anatomical Collection Method Collection Time Receive d Time (Source) Location / / Volume Laterality AP Specimen 03/24/2014 11:13 03/24/2014 AM EDT 11:13 AM EDT Narrative JOSEFINA GILES - 03/24/2014 11:13 AM EDT Specimen requisition ordered. ??Separate Pathology report to follow Eric Livingston MD PATHOLOGY/CYTOLOGY ORDERABLE S Performing Organization Address City/State/[place] [address] JOSEFINA GILES UPPER GI ENDOSCOPY (03/24/2014 9:44 AM EDT) Component Value Ref Test Analysis Performed At [facility] Range Method Time Signature UPPER GI [facility] [employer] ENDOSCOPY Endoscopy Patient Name: Hardik Escudero ? Procedure Date: 03/24/2014 9:44 AM ? N: [id number] ? Date of : 1945 ? Age: 69 ? Order #: [id number] ? Procedure: ? Upper GI endoscopy Indications: ? Lin's high grade dysplasia, ? Follow-up of previous ablatio n ? treatment of Lin's esopha fallon, ? Follow-up of endoscopic mucos al ? resection of Lin's esopha fallon Providers: ? Eric Livingston MD, Leon joel, ? RN, Soila Wilder MD: ?Victor M Jeff, DO Medicines: ? [...] Findings: ? The Z-line was slightly irregular in contour and was ? found 37 cm from the incisors. There was no other ? gross evidence for Lin's by white light or NBI. ? [place] OCT was performed with a 20 mm balloon ? probe. Image quality was excellent and there were no ? significant abnormalities/buried Lin's ? identifies. Multiple biopsies in 4 quadrants q 2 cm ? from 37 cm to 27 cm were taken with a cold forceps ? for histology. ? A medium-sized hiatus hernia was present. ? Otherwise normal stomach including retroflex view of ? cardia and fundus. ? The examined duodenum was normal. ? Impression: ?- No evidence for residual Lin 's ? save for slightly irregular Z -line. ? Biopsied. ? - Hiatus hernia. ? - Normal examined duodenum. Recommendation: ?- Await pathology results. ? - Repeat the upper endoscopy in 6 ? months for follow-up of [place] tt's ? ablation. ? Eric Livingston MD 03/24/2014 11:35 AM This report has been signed electronically. Number of Addenda: 0 Note Initiated On: 03/24/2014 9:44 AM Specimen (Source) Anatomical Collection Method Collection Time Re ceived Time Location / / Volume Laterality 03/24/2014 9:44 AM EDT Victor M Jeff DO GENERAL SURGICAL ORDERABLES Performing Organization Address City/State/ZIP Code Phon e Number [employer] documented in this encounter Visit Diagnoses Not on filedocumented in this encounter Active and Recently Administered Medications Care Teams Associate Account Director Relationship Specialty Start Date End Date Victor M Jeff DO PCP - General 03/14/[address] [place] [address] documented as of this encounter
--- OUTSIDE RECORDS SUMMARY | 2022-08-10 23:24 | XMS_ITS | Encounter Summary ---
:1945 Author Organization [facility] [place] [address] Care Team Providers Name Role Phone Victor M Jeff DO Primary Care Provider Encounter Details Date Type Department Care Team Description 12/10/2013 Anesthesia Event Gastroenterology at [facility], [facility] [place] [address] [facility] [phone] DR ANESTHESIOLOGY [place], [place] [address] Anesthesia Record Procedure Summary Procedure Name Responsible Anesthesia Start Anesthesia Stop Time Anesthesiologist Time EGD, UPPER GI Jas Padilla MD 12/10/13 1110 12/10/13 114 8 ENDOSCOPY (Trunk) Events Date Time Event Comment 12/10/2013 1029 1110 AN Verify 1110 Start 1115 An Start Data 1116 An Induction 1120 Anesthesia Ready 1141 an stop data 1148 Stop Name Total Propofol 200 mg Propofol INF 276 mg Lactated Ringers 300 mL Agents Name O2 Blood No blood administrations on file. Lines, Drains, and Airways Type Details Placement Removal PIV 12/10/13; 1030; 12/10/13; 12/10/13 1030 by Sara delvalle, 12/10/13 1215 by Deanne 1215 Rachel Santana RN Jamia Ennis RN documented in this encounter Social History Tobacco Use Types Packs/Day Years Used Date Smoking Tobacco: Every Day Alcohol Use Standard Drinks/Week Comments No 0 (1 standard drink = 0.6 oz pure alcoho l) Sex Assigned at Date Recorded Not on file documented as of this encounter OR Notes Anesthesia Postprocedure Evaluation - Jas Padilla MD - 12/10/2013 12:05 PM EDT Patient: Hardik Arevalo Procedure(s) Performed: Procedure(s): EGD, UPPER GI ENDOSCOPY Actual Anesthetic: MAC Patient location: PACU Post-op pain: Adequate analgesia Post-op nausea: no nausea or vomiting Last Vitals: Filed Vitals: 12/10/13 1147 BP: 144/81 Pulse: 76 Resp: 18 Post-op cardiovascular and respiratory status: is stable Level of consciousness: awake, alert and oriented Complications: no apparent complications and tolerated the procedure well Fluid Status: normal Anesthesia Preprocedure Evaluation - Jas Padilla MD - 12/10/2013 10:28 AM EDT Pre-Anesthesia Evaluation for: Hardik Arevalo a 68 y.o. male. Procedure(s): EGD, UPPER GI ENDOSCOPY Patient Active Problem List Diagnosis ??? Intramucosal esophageal cancer No past medical history on file. Past Surgical History Procedure Date ??? Endoscopic us exam, esoph 03/19/2013 UPPER EUS- ENDOSCOPIC ULTRASOUND performed by Eric Livingston MD at [facility] ENDOSCOPY ??? Upper gi endoscopy, diagnostic 08/26/2013 EGD, UPPER GI ENDOSCOPY performed by Eric Livingston MD at [facility] ENDOSCOPY History Substance Use Topics ??? [...] Denies CP. 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 Patient denies in changes in health history since last EGD. Region - Other Informed Consent: Anesthetic plan and risks discussed with patient. Plan discussed with CUSTOMER SUPPORT ASSOCIATE. Mayrac. Assessment: documented in this encounter Plan of Treatment Not on filedocumented as of this encounter Visit Diagnoses Not on filedocumented in this encounter Administered Medications Inactive Administered Medications - up to 3 most recent administrations Medication Order MAR Action Action Date Dose Rate Site lactated ringers infusion New Bag 12/10/2013 11:10 AM EDT mL CONTINUOUS PRN, Starting on Sun12/10/13 at 1110, Until Sun12/10/13 at 1148, Anesthesia Intra-op propofol (DIPRIVAN) 10 mg/mL bolus injection Given 10/2013 11:35 AM EDT 50 mg (Anesthesia) PRN, Starting on Sun12/10/13 at 1118, Until Sun12/10/13 at 1148, Anesthesia Intra-op Given 12/10/2013 11:27 AM EDT 50 mg Given 12/10/2013 11:18 AM EDT 50 mg propofol (DIPRIVAN) infusion New Bag 12/10/2013 11:16 AM 150 mcg/kg/min 72 mL/hr CONTINUOUS PRN, Starting on Sun EDT 12/10/13 at 1116, Until Sun12/10/13 at 1148, Anesthesia Intra-op, Routine documented in this encounter Care Teams Entry Level Buyer Relationship Specialty Start Date End Date Victor M Jeff DO PCP - General 03/14/[address] [place] [address] documented as of this encounter
--- OUTSIDE RECORDS SUMMARY | 2022-08-10 23:24 | XMS_ITS | Encounter Summary ---
:1945 Author Organization [facility] Address [address] [place] [address] Care Team Providers Name Role Phone Victor M Jeff Primary Care Provider Encounter Details Date Type Department Care Team Description 12/10/2013 Surgery Gastroenterology at [facility] Eric Livingston, EGD, UPPER GI [facility] [place] [address] [facility] [phone] DR GASTROENTEROLOGY DEPT. [place], [place] [address] Social History Tobacco Use Types Packs/Day Years Used Date Smoking Tobacco: Every Day Alcohol Use Standard Drinks/Week Comments No 0 (1 standard drink = 0.6 oz pure alcoho l) Sex Assigned at Date Recorded Not on file documented as of this encounter Last Filed Vital Signs Vital Sign Reading Time Taken Comments Blood Pressure 144/81 12/10/2013 11:47 AM EDT Pulse 76 12/10/2013 11:47 AM EDT Temperature - - Respiratory Rate 18 12/10/2013 11:47 AM EDT Oxygen Saturation 95% 12/10/2013 11:47 AM EDT Inhaled Oxygen Concentration - - Weight 80 kg (176 lb 5.9 oz) 12/10/2013 11:20 AM EDT Height - - Body Mass Index - - documented in this encounter Discharge Instructions Discharge Jamia Palencia RN - 12/10/2013 11:52 AM EDT UPPER GI ENDOSCOPY with THERMAL [...] not get better as expected. Sunday-Sunday Clinic [phone] 8a-5p Same Day Endo [phone] 7a-8p Otherwise contact [phone] and ask to speak to the basket hand weaver trombone slide assembler Follow-up care is a easley part of your treatment and safety. Be sure to make and go to all appointments, and call your doctor if you are having problems. Instructions have been reviewed and patient expresses understanding documented in this encounter Medications at Time [...] documented as of this encounter H&P Notes Sukumar Goins MD - 12/10/2013 10:57 AM EDT Patient Name: Hardik Arevalo Patient Age: 68 y.o. 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 Patient Active Problem List Diagnosis Code ??? 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 No changes Exam: Filed Vitals: 12/10/13 1023 BP: 143/100 Pulse: 71 Resp: 16 GEN: NAD, AAOX3 HEENT: NC/AT dryMM, anicteric Chest: CTAB Heart: RRR, nl s1, s2 Abdomen: normal bowel sounds, soft, non tender Assessment and Plan: Proceed with EGD: ASA Grade: ASA 3 - Patient with moderate systemic disease with functional limitations Sedation plan: per Anesthesia Risks and benefits of the procedure were discussed with the patient. Consent has been signed. documented in this encounter Miscellaneous Notes Miscellaneous - Provider, Scanning - 12/10/2013 10:50 PM EDT Miscellaneous - Provider, Scanning - 12/10/2013 10:50 PM EDT Miscellaneous - Provider, Scanning - 12/10/2013 1:43 PM EDT documented in this encounter Plan of Treatment Not on filedocumented as of this encounter Procedures Procedure Name Priority Date/Time Associated Diagnosis Comme nts EGD, UPPER GI 12/10/2013 11:09 AM Repeat EGD/Barrx 3 ENDOSCOPY EDT mos. Consult UPPER GI ENDOSCOPY Routine 12/10/2013 11:07 AM Re sults for this EDT procedure are i n the results section. documented in this encounter Results UPPER GI ENDOSCOPY (12/10/2013 11:07 AM EDT) Component Value Ref Test Analysis Performed At [facility] Range Method Time Signature UPPER GI [facility] ENDOSCOPY Endoscopy Patient Name: Hardik Arevalo ? Procedure Date: 12/10/2013 11:07 AM ? Date of : 1945 ? Age: 68 ? Order #: [id number] ? Procedure: ? Upper GI endoscopy Indications: ? Lin's high grade dysplasia, ? Follow-up of previous ablatio n ? treatment of Lin's esopha fallon, ? Follow-up of endoscopic mucos al ? resection of Lin's esopha fallon Providers: ? Eric Livingston MD, Sukumar ? MD Buster, Bentley Almazan, RN, ? Catie Sprenger, Hydrodynamics Teacher, Anthony Dao ? MD Babs Referring MD: ?Victor M Jeff, DO Medicines: [...] was irregular in contour and was found 35 ? cm from the incisors. There were 4 small focal ? islands ranging from 2-5 mm in size at 30 cm. There ? were no other areas of residual Lin's. ? The stomach was normal. ? The examined duodenum was normal. ? Focal radiofrequency ablation of Lin's esophagus ? was performed. With the endoscope in place, the ? position and extent of the Lin's mucosa and the ? anatomic landmarks including proximal and distal ? extent of Lin's and top of gastric folds were ? noted. The Lin's mucosa was irrigated with water. ? Gastric and esophageal contents were suctioned. The ? endoscope was then removed from the patient. The ? Halo-60 radiofrequency ablation catheter was attached ? to the tip of the endoscope. The endoscope with the ? attached radiofrequency ablation catheter was then ? passed transorally under direct vision into the ? esophagus and advanced to the areas of Lin's ? mucosa. The areas included islands at 30 cm and ? circumferential areas at GE Jct of Lin's mucosa. ? The radiofrequency ablation catheter was placed in ? [...] Small amount of residual Lin 's ? at GE Jct and mid-esophagus ( 1% ? residual). ? - Focal radiofrequency ablati on for ? residual Lin's esophagus ? performed (using the Halo-60 Ablation ? Catheter). Recommendation: ?- Clear liquid diet x 24 hours, then ? soft diet for 7-10 days. ? - Double dose PPI. ? - May use pain medication as needed. ? - Repeat the upper endoscopy in 3 ? months for follow-up of [place] tt's ? ablation. ? - The attending physician jaime grey ? above was present for the ent kalpana ? procedure. ? Eric Livingston MD 12/10/2013 11:44 AM This report has been signed electronically. Number of Addenda: 0 Note Initiated On: 12/10/2013 11:07 AM Specimen (Source) Anatomical Collection Method Collection Time Re ceived Time Location / / Volume Laterality 12/10/2013 11:07 AM EDT Victor M Jeff DO GENERAL SURGICAL ORDERABLES Performing Organization Address City/State/ZIP Code Phon e Number [place] documented in this encounter Visit Diagnoses Not on filedocumented in this encounter Active and Recently Administered Medications Care Teams Law Examiner Relationship Specialty Start Date End Date Victor M Jeff DO PCP - General 03/14/[address] [place] [address] documented as of this encounter
--- OUTSIDE RECORDS SUMMARY | 2022-08-10 23:24 | XMS_ITS | Encounter Summary ---
:1945 Author Organization [facility] [place] [address] Care Team Providers Name Role Phone TomerVictor M alvarado Primary Care Provider Encounter Details Date Type Department Care Team Description 05/20/2013 Hospital Encounter [facility] [place] [address] [facility] [phone] [place] GASTRO[facility]OLOGY DEPT. [place], [place] [address] Social History Tobacco Use Types Packs/Day Years Used Date Smoking Tobacco: Former Alcohol Use Standard Drinks/Week Comments No 0 (1 standard drink = 0.6 oz pure alcoho l) Sex Assigned at Date Recorded Not on file documented as of this encounter Last Filed Vital Signs Vital Sign Reading Time Taken Comments Blood Pressure 167/91 05/20/2013 9:49 AM EDT Pulse 70 05/20/2013 9:49 AM EDT Temperature 36.5 ??C (97.7 ??F) 05/20/2013 8:37 AM EDT Respiratory Rate 18 05/20/2013 9:49 AM EDT Oxygen Saturation 97% 05/20/2013 9:49 AM EDT Inhaled Oxygen Concentration - - Weight - - Height - - Body Mass Index - - documented in this encounter Discharge Instructions Discharge InstructionsHaven Pope RN - 05/20/2013 9:38 AM EDT UPPER GI ENDOSCOPY with THERMAL [...] not get better as expected. Sunday-Sunday Clinic [phone] 8a-5p Same Day Endo [phone] 7a-8p Otherwise contact [phone] and ask to speak to the medication aid admissions consultant Follow-up care is a easley part of your treatment and safety. Be sure to make and go to all appointments, and call your doctor if you are having problems. Instructions have been reviewed and patient expresses understanding Patient InstructionsGoEric ferreira MD - 05/20/2013 9:47 AM EDT Please see Recommendations in the Provation procedure report which is documented in the procedural note in E-DH. documented in this encounter Medications at Time of Discharge Medication Sig Dispensed Refills Start Date End Date omeprazole (PRILOSEC) 20 Take 20 mg by mouth 0 mg capsule 2 times daily. sucralfate (CARAFATE) Take 10 mLs by mouth 400 mL 0 08/1009/05/2013 100 mg/mL suspension 4 times daily for 10 days. OXYcodone (ROXICODONE) 5 Take 5-10 mLs by 200 mL 0 08/2612/10/2013 mg/5 mL solution mouth every 4 hours as needed for Pain. omeprazole (PRILOSEC) 40 Take 1 capsule by 60 capsule 11 05/1105/20/2014 mg capsule mouth 2 times daily (before meals). OXYcodone (ROXICODONE) 5 Take 10 mLs by mouth 150 mL 0 0 05/20/2013 08/26/2013 mg/5 mL solution every 4 hours as needed for Pain. sucralfate (CARAFATE) Take 10 mLs by mouth 420 mL 0 05/1108/26/2013 100 mg/mL suspension 4 times daily. documented as of this encounter H&P Notes Anthony Brice MD - 05/20/2013 8:49 AM EDT Gastroenterology and Hepatology Pre-Procedure History and Physical Exam Procedure: EGD +/- RFA or EMR Indication: Long segment dysplastic [place] [facility] [place]p [place] 2 months ago. Here for repeat visit/treatment. Patient Active Problem List Diagnosis Code ??? [...] Miscellaneous Notes Miscellaneous - Provider, Scanning - 05/20/2013 3:15 PM EDT Op Note - Eric Livingston MD - 05/20/2013 9:47 AM EDT [facility] Operative Note Patient Name: Hardik Arevalo : [id number] MR#: [id number] Case Date: 05/20/2013 Surgeon: Surgeon(s) and Role: * Eric Livingston MD - Primary * Anthony Brice MD - Fellow Preoperative diagnosis: Repeat EGD/Barrx 60 min with Propofol in 2 mos. Postoperative diagnosis: * No post-op diagnosis entered * Procedure(s): EGD, UPPER GI ENDOSCOPY Full procedure note is documented under the Procedure section of eDH. documented in this encounter Plan of Treatment Not on filedocumented as of this encounter Procedures Procedure Name Priority Date/Time Associated Diagnosis Comme nts UPPER GI ENDOSCOPY Routine 05/20/2013 8:54 AM Res ults for this EDT procedure are i n the results section. EGD, UPPER GI 05/20/2013 8:52 AM Repeat EGD/Barrx 60 ENDOSCOPY EDT min with Propofol in 2 mos. documented in this encounter Results UPPER GI ENDOSCOPY (05/20/2013 8:54 AM EDT) Component Value Ref Test Analysis Performed At [facility] Range Method Time Signature UPPER GI [facility] ENDOSCOPY Endoscopy Patient Name: Hardik Arevalo ? Procedure Date: 05/20/2013 8:54 AM ? Date of : 1945 ? Age: 68 ? Order #: [id number] ? Procedure: ? Upper GI endoscopy Indications: ? Lin's high grade dysplasia, ? Follow-up endoscopic mucosal ? resection of Lin's esopha fallon, for ? Barrx RFA Providers: ? Eric Livingston MD, Anthony Deng. ? MD Babs, Bentley Almazan , RN, ? Tiara Maki, Cop Referring MD: ?Victor M Jeff DO, Redd Oseguera [...] with anesthesia and complex ? procedure (ERCP, EUS). ? The procedure, indications, b [...] the procedu re well. ? Findings: ? 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 upper extent of the gastric folds which were at 36 cm ? from the incisors to the Z-line which was at 25 cm ? from the incisors (C10M11). There were patchy ? squamous islands throughout and scar at 31-33 cm at ? site of EMR. There were no residual nodules. ? A medium-sized hiatus hernia was found. The proximal ? extent of the gastric folds (end of tubular ? esophagus) was 36 cm from the incisors. The hiatal ? narrowing was 41 cm from the incisors. ? Otherwise normal stomach including retroflex view of ? cardia and fundus. ? The examined duodenum was normal. ? Circumferential radiofrequency ablation of Lin's ? esophagus was performed, using the Halo 360 catheter ? and balloon-based endoscopic ablation system. With ? the endoscope in place, the position and extent of ? the Lin's mucosa and the anatomic landmarks ? including proximal and distal extent of Lin's and ? top of gastric folds were noted. The Lin's mucosa ? was irrigated with water. Gastric and esophageal ? contents were suctioned. A guidewire was passed down ? the biopsy channel of the endoscope and the endoscope ? was then withdrawn from the mouth leaving the ? guidewire in place. A 33.7 mm sizing balloon catheter ? was lubricated with water and passed transorally over ? the guidewire into the esophagus and positioned 24 cm ? from the incisors. The balloon was automatically ? inflated with the energy generator and the inner ? diameter measurement of the esophagus of 22 mm was ? obtained. This measurement step was repeated in 1 cm ? increments moving distally until an increase in size ? was noted, indicating that the balloon had reached ? the gastric cardia. The minimum sizing measurement ? was 22 mm. The last sizing measurement was 28 mm. The ? sizing balloon catheter was withdrawn. A 25 mm ? diameter radiofrequency ablation balloon catheter was ? then selected and passed transorally over the ? guidewire into the esophagus. The endoscope was ? introduced in a [id number]-ei-etve manner with the ablation ? catheter. The balloon ablation catheter was ? positioned under direct visualization so that the ? proximal edge of the electrode was at 25 cm from the ? incisors. The balloon was automatically inflated and ? energy was applied at 300 W. The balloon electrode ? was moved 3 cm distally, so that the proximal edge of ? the electrode was aligned with the distal edge of the ? ablation zone. The process of balloon inflation and ? ablation was repeated until the top of the gastric ? folds was reached. The ablation catheter was removed ? and cleaned. The ablation zone was then cleaned of ? overlying coagulative debris using irrigation and ? suction via the endoscope and a cleaning cap. The ? ablation catheter was then reintroduced into the ? esophagus over the guidewire and positioned under ? direct visualization so that the proximal edge of the ? electrode was at the proximal edge of the ablation ? zone. Reinflation and a second round of ablation was ? performed with the application of 300 W to re-treat ? the Lin's epithelium already treated with the ? first round of ablation. The ablation catheter and ? guidewire were then removed. The areas of the ? esophagus where Lin's mucosa had been ablated ? were then carefully examined with the endoscope. ? Areas of Lin's esophagus were completely treated. ? Impression: ?- Esophageal mucosal changes ? 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 ? - Hiatus hernia. ? - Normal examined duodenum. ? - Circumferential radiofreque ncy ? ablation for Lin's esopha fallon ? performed (using the Halo 360 ? Ablation Catheter). Recommendation: ?- Observe patient's clinical course. ? - Clear liquid diet x 24 hour s, then ? soft diet for 7-10 days. ? - Double dose PPI. ? - May use pain medication as needed. ? - Repeat the upper endoscopy in 3 ? months for follow-up of [place] tt's ? ablation. ? - The attending physician jaime grey ? above was present for the ent kalpana ? procedure. ? Eric Livingston MD 05/20/2013 9:47 AM This report has been signed electronically. Number of Addenda: 0 Note Initiated On: 05/20/2013 8:54 AM Specimen (Source) Anatomical Collection Method Collection Time Re ceived Time Location / / Volume Laterality 05/20/2013 8:54 AM EDT Victor M Jeff DO GENERAL SURGICAL ORDERABLES Performing Organization Address City/State/ZIP Code Phon e Number [facility] documented in this encounter Visit Diagnoses Not on filedocumented in this encounter Active and Recently Administered Medications Care Teams Home Care Administrator Relationship Specialty Start Date End Date Victor M Jeff DO PCP - General 03/14/[address] [place] [address] documented as of this encounter
--- OUTSIDE RECORDS SUMMARY | 2022-08-10 23:24 | XMS_ITS | Encounter Summary ---
:1945 Author Organization [facility] [place] [address] Care Team Providers Name Role Phone TomerVictor M alvarado Primary Care Provider Encounter Details Date Type Department Care Team Description 03/24/2014 [facility] En[facility] [place] [address] [facility] [phone] [place] [facility] DEPT. [place], [place] [address] Social History Tobacco Use Types [...] Sign Reading Time Taken Comments Blood Pressure 115/69 03/24/2014 10:49 AM EDT Pulse 61 03/24/2014 10:49 AM EDT Temperature 36.3 ??C (97.3 ??F) 03/24/2014 9:10 AM EDT Respiratory Rate 18 03/24/2014 10:49 AM EDT Oxygen Saturation 96% 03/24/2014 10:49 AM EDT Inhaled Oxygen Concentration - - Weight 87.1 kg (192 lb) 03/24/2014 9:10 AM EDT Height 180.3 cm (5' 11) 03/24/2014 9:10 AM EDT Body Mass Index 26.78 03/24/2014 9:10 AM EDT documented in this encounter Discharge Instructions Discharge InstructionsPatricia Quintero, RN - 03/24/2014 10:54 AM EDT UPPER [...] not get better as expected. Sunday-Sunday Clinic [phone] 8a-5p Same Day Endo [phone] 7a-8p Otherwise contact [phone] and ask to speak to the ticket agent office 365 consultant Follow-up care is a easley part [...] Miscellaneous Notes Miscellaneous - Provider, Scanning - 03/24/2014 9:56 PM EDT Mayracellaneous - Provider, Scanning - 03/24/2014 9:53 PM EDT Darianaaneous - Provider, Scanning - 03/24/2014 2:58 PM EDT Op Note - Eric Livingston MD - 03/24/2014 11:09 AM EDT [facility] Operative Note Patient Name: Hardik Escudero : [id number] MR#: [id number] Case Date: 03/24/2014 Surgeon: Surgeon(s) and Role: [...] (WRVU 2.49) EDT 3-4 mos last egd /2 consult UPPER GI ENDOSCOPY Routine 03/24/2014 9:44 AM Res ults for this EDT procedure are i n the results section. documented in this encounter Results Surgical Pathology Report (03/24/2014 11:13 AM EDT) [facility] Method Time Signature Surgical CERNER Pathology ? [facility] MILLENNIUM Report ? Provider: ?? ERIC LIVINGSTON ?Pt. Name: ?? HARDIK ESCUDERO ? Acc #: ?[id number] ?Pt. MRN: ?[id number] ? Col Date: ?? 4 ? /Sex: [...] Soft, white tissues. ? Sections/Processing: (T1) ? [facility] ? Provider: ?? ERIC LIVINGSTON ?Pt. Name: ?? HARDIK ESCUDERO ? Acc #: ?[id number] ?Pt. MRN: ?[id number] ? Col Date: ?? 4 ? /Sex: [...] MD PATHOLOGY/CYTOLOGY ORDERABLE S Performing Organization Address [facility] [place] [address] CERNER MILLENNIUM Specimen to [...] MD PATHOLOGY/CYTOLOGY ORDERABLE S Performing Organization Address [facility] [place] [address] CERNER MILLENNIUM Specimen to [...] Organization Address City/State/[place] [address] CERNER MILLENNIUM Specimen to [...] Organization Address City/State/[place] [address] CERNER MILLENNIUM Specimen to [...] Organization Address City/State/[place] [address] CERNER MILLENNIUM Specimen to [...] Organization Address City/State/[place] [address] CERNER MILLENNIUM Specimen to Pathology (surgical or derm) (03/24/2014 11:13 AM EDT) Specimen Anatomical Collection Method Collection Time Receive d Time (Source) Location / / Volume Laterality AP Specimen 03/24/2014 11:13 03/24/2014 AM EDT 11:13 AM EDT Narrative JOSEFINA MOTTIUM - 03/24/2014 11:13 AM EDT Specimen requisition ordered. ??Separate Pathology report to follow Eric Livingston MD PATHOLOGY/CYTOLOGY ORDERABLE S Performing Organization Address City/State/[place] [address] JOSEFINA MOTTIUM UPPER GI ENDOSCOPY (03/24/2014 9:44 AM EDT) Component Value Ref Test Analysis Performed At [facility] Range Method Time Signature UPPER GI [facility] ENDOSCOPY Endoscopy Patient Name: Hardik Escudero ? Procedure Date: 03/24/2014 9:44 AM ? N: [id number] ? Date of : 1945 ? Age: 69 ? Order #: [id number] ? Procedure: ? Upper GI endoscopy Indications: [...] in 6 ? months for follow-up of [place] tt's ? ablation. ? Eric Livingston MD [...] and Recently Administered Medications Care Teams Home Decorator Relationship Specialty Start Date End Date Victor M Jeff, DO PCP - General 03/14/[address] [place] [address] documented as of this encounter
--- OUTSIDE RECORDS SUMMARY | 2022-08-10 23:24 | XMS_ITS | Encounter Summary ---
:1945 Author Organization [facility] Address [facility] [address] [place] [address] Care Team Providers Name Role Phone TomerVictor M alvarado Primary Care Provider Encounter Details Date Type Department Care Team Description 08/26/2013 Surgery Gastroenterology at [facility] [place] Livingston, EGD, UPPER GI [facility] Norm [place] [address] [facility] [phone] GASTROENTEROLOGY DEPT. [place], [place] [address] Social History Tobacco Use Types [...] not get better as expected. Sunday-Sunday Clinic [phone] 8a-5p Same Day Endo [phone] 7a-8p Otherwise contact [phone] and ask to speak to the personal protection specialist construction economist Follow-up care is a easley part of [...] Livingston MD - 08/26/2013 10:52 AM EST [facility] Operative Note Patient Name: Hardik Arevalo : [id number] MR#: [id number] Case Date: 08/26/2013 Surgeon: Surgeon(s) and Role: * Eric Livingston MD - Primary * Anthony Brice MD - Fellow Preoperative diagnosis: Repeat EGD/Barrx 3 mos. Consult Postoperative diagnosis: * No post-op diagnosis entered * Procedure(s): EGD, UPPER GI ENDOSCOPY Full procedure note is documented under the Procedure section of [facility]. Miscellaneous - Provider, Scanning - 08/26/2013 9:52 [...] Component Value Ref Test Analysis Performed At [facility] Range Method Time Signature UPPER GI [facility] ENDOSCOPY Endoscopy Patient Name: Hardik Arevalo ? Procedure Date: 08/26/2013 9:56 AM ? Date of : 1945 ? Age: 68 ? Order #: [id number] ? Procedure: ? Upper GI endoscopy Indications: ? Lin's high grade dysplasia, ? Follow-up of previous ablatio n ? treatment of Lin's esopha fallon, ? Post endoscopic mucosal resec tion for ? Lin's esophagus with dysp lasia Providers: ? Eric Livingston MD, Bentley Orellana ? POOL Almazan, Merna Herrmann Referring : ?Victor M Jeff DO, Redd Oseguera Walk [...] in 3 ? months for follow-up of [place] tt's ? ablation. ? Eric Livingston MD [...] at 100 mL/hr, Intravenous, CO NTINUOUS, Starting 08/26/13 at 1000, Until Sun08/26/13 at 1126, Endo (Day of Procedure) documented in this encounter Care Teams Oriental Rug Stretcher Relationship Specialty Start Date End Date Victor M Jeff DO PCP - General 03/14/13 [address] [place] [address] documented as of this encounter
--- OUTSIDE RECORDS SUMMARY | 2022-08-10 23:24 | XMS_ITS | Encounter Summary ---
:1945 Author Organization [facility] Address [facility] [address] [place] [address] Care Team Providers Name Role Phone Victor M Jeff DO Primary Care Provider Encounter Details Date Type Department Care Team Description 03/19/2013 Anesthesia [place] [facility] [place]isa Marks MD [facility] [address] [place] [address] [facility] Maria Victoria Juan CRNA [facility] [place] [address] [place] [address] Anesthesia Record Procedure Summary Procedure Name Responsible Anesthesia Start Anesthesia Stop Time Anesthesiologist Time EGD, UPPER GI Julisa Marks MD 03/19/13 1304 03/19/13 1 410 ENDOSCOPY (Trunk) Events Date Time Event Comment 03/19/2013 1214 1304 Start 1304 AN Verify 1304 An Start Data 1307 Anesthesia Ready 1318 Procedure Start 1329 Break/Relief In Julisa Bacon CRNA 1401 Procedure Stop 1402 Break/Relief Out 1403 an stop data 1410 Stop Name Total IV Lidocaine 40 mg Propofol 120 mg Propofol INF 1,125 mg Lactated Ringers 1,300 mL Agents Name O2 Air O2 Auxiliary Flowmeter 1 Blood No blood administrations on file. Lines, Drains, and Airways Type Details Placement Removal PIV 03/19/13; 1157; 03/19/13; 03/19/13 1157 by Shanita siegel, 03/19/13 1501 by Diogenes, 1501 Eric Seay RN Eric Seay RN documented in this encounter Social History Tobacco Use Types Packs/Day Years Used Date Smoking Tobacco: Former Alcohol Use Standard Drinks/Week Comments No 0 (1 standard drink = 0.6 oz pure alcoho l) Sex Assigned at Date Recorded Not on file documented as of this encounter OR Notes Anesthesia Postprocedure Evaluation - Julisa Marks MD - 03/19/2013 3:05 PM EDT Patient: Hardik Arevalo Procedure(s) Performed: Procedure(s): EGD, UPPER GI ENDOSCOPY UPPER EUS- ENDOSCOPIC ULTRASOUND Actual Anesthetic: MAC Patient location: PACU Post-op pain: Adequate analgesia Post-op nausea: no nausea or vomiting Last Vitals: Filed Vitals: 03/19/13 1433 BP: 132/84 Pulse: 59 Temp: Resp: 16 Post-op cardiovascular and respiratory status: is stable Level of consciousness: awake, alert and oriented Complications: no apparent complications and tolerated the procedure well Fluid Status: normal Anesthesia Preprocedure Evaluation - Julisa Marks MD - 03/18/2013 7:43 PM EDT Pre-Anesthesia Evaluation for: Hardik Arevalo a 68 y.o. male. Procedure(s): EGD, UPPER GI ENDOSCOPY UPPER EUS- ENDOSCOPIC ULTRASOUND There are no active problems to display for this patient. No past medical history on file. No past surgical history on file. History Substance Use Topics ??? Smoking status: Not on file ??? Smokeless tobacco: Not on file ??? Alcohol Use: Not on file History Drug Use Not on file Allergies not on file Medications: MAR and/or home medications have been reviewed. Physical Exam: There were no vitals filed for this visit. There is no height or weight on file to calculate BMI. Airway Assessment: Mallampati: I TM distance: >3 FB Neck ROM: full Cardiovascular Assessment: cardiovascular exam normal Pulmonary Assessment: pulmonary exam normal Dental Assessment: Comment: Pt states that all of his teeth are loose (from tree branch hitting his mouth. Plastic temporary teeth in [place] [facility] [place]: IV access: Peripheral line Anesthesia Plan: ASA 2 MAC, with a(n) intravenous induction 68 y/o male cigarette smoker (quit 2 weeks ago) with esophageal cancer, Lin's esophagus, GERD (well-controlled), HLD, tubular adenomas GI tract presents for EGD, possible EMR. Pt states that he has had nausea with past ERCP. Otherwise no problems with anesthesia. No hx family problems with anesthesia. Denies CP. Pt is very active golPurchext. Region - Other Informed Consent: Anesthetic plan and risks discussed with patient. Plan discussed with [employer]. [facility] [place] Assessment: documented in this encounter Plan of Treatment Not on filedocumented as of this encounter Visit Diagnoses Not on filedocumented in this encounter Administered Medications Inactive Administered Medications - up to 3 most recent administrations Medication Order MAR Action Action Date Dose Rate Site lactated ringers infusion New Bag 03/19/2013 1:05 PM EDT mL CONTINUOUS PRN, Starting on Sun03/19/13 at 1305, Until Sun03/19/13 at 1410, Anesthesia Intra-op lidocaine (PF) (XYLOCAINE) 100 mg/5 mL (2 %) Given 3 1:06 PM EDT 40 mg injection PRN, Starting on Sun03/19/13 at 1306, Until Sun03/19/13 at 1410, Anesthesia Intra-op, Routine propofol (DIPRIVAN) 10 mg/mL bolus injection Given 3 1:15 PM EDT 40 mg (Anesthesia) PRN, Starting on Sun03/19/13 at 1307, Until Sun03/19/13 at 1410, Anesthesia Intra-op Given 03/19/2013 1:07 PM EDT 80 mg propofol (DIPRIVAN) Rate/Dose 03/19/2013 1:30 200 mcg/kg/min 144 mL/ hr infusion Change PM EDT CONTINUOUS PRN, Starting on Sun03/19/13 at 1310, Until Sun03/19/13 at 1410, Anesthesia Intra-op, Routine Rate/Dose Change 03/19/2013 1:15 PM EDT 175 mcg/kg/min 126 mL/hr New Bag 03/19/2013 1:10 PM EDT 150 mcg/kg/min 108 mL/hr documented in this encounter Care Teams Automobile Mechanic Apprentice Relationship Specialty Start Date End Date Victor M Jeff DO PCP - General 03/14/[address] [place] [address] documented as of this encounter
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
--- OUTSIDE RECORDS SUMMARY | 2022-08-10 23:24 | XMS_ITS | Encounter Summary ---
:1945 Author Organization [facility] Address [facility] [place] [address] Care Team Providers Name Role Phone TomerVictor M alvarado Primary Care Provider Encounter Details Date Type Department Care Team Description 03/19/2013 Surgery [place]ology [place] [facility] [place] Eric Livingston, EGD, UPPER GI [facility] Norm [place] [address] [facility] [phone] DR GASTROENTEROLOGY DEPT. [place], [place] [address] Social History Tobacco Use Types Packs/Day Years Used Date Smoking Tobacco: Former Alcohol Use Standard Drinks/Week Comments No 0 (1 standard drink = 0.6 oz pure alcoho l) Sex Assigned at Date Recorded Not on file documented as of this encounter Last Filed Vital Signs Vital Sign Reading Time Taken Comments Blood Pressure 132/84 03/19/2013 2:33 PM EDT Pulse 59 03/19/2013 2:33 PM EDT Temperature 36.6 ??C (97.9 ??F) 03/19/2013 11:49 AM EDT Respiratory Rate 16 03/19/2013 2:33 PM EDT Oxygen Saturation 96% 03/19/2013 2:33 PM EDT Inhaled Oxygen Concentration - - Weight - - Height - - Body Mass Index - - documented in this encounter Discharge Instructions Discharge Feli Sampson RN - 03/19/2013 2:19 PM EDT You may have received medication before and/or during your procedure which effects judgement and reaction time. Do not drive, operate machinery,drink alcoholic beverages or make important decisions for 24 hours. Be careful on stairs, as you may be unsteady on your feet. You may eat a regular diet as tolerated. Do not smoke if you are alone. IV site-- slight redness or tenderness is normal. You may use a warm compress. If tenderness and redness increase or foul drainage occur please notify your MD. Please call [phone] before 5pm with problems, questions or concerns. After 5 pm call [phone] and ask to speak with the GI fellow nutrition technician. Discharge instructions reviewed with patient who expresses understanding. Patient InstructionsEric Livingston MD - 03/19/2013 2:25 PM EDT Please see Recommendations in the Provation procedure report which is documented in the procedural note in E-DH. AttachmentsThe following attachments cannot be sent through Care Everywhere. UPPER GI ENDOSCOPY: WHAT TO EXPECT AT HOME (ARMENIAN)documented in this encounter Medications at Time of Discharge Medication Sig Dispensed Refills Start Date End Date omeprazole (PRILOSEC) 20 Take 20 mg by mouth 0 mg capsule 2 times daily. omeprazole (PRILOSEC) 40 Take 1 capsule by [...] encounter H&P Notes Anthony Brice MD - 03/19/2013 12:52 PM EDT Gastroenterology and Hepatology Pre-Procedure History and Physical Exam Procedure: EUS/EMR Indication: IMC in setting of dysplastic Lin's Patient Active Problem List Diagnoses Code ??? 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 Risks and benefits of the procedure explained to the patient. Consent signed. documented in this encounter Miscellaneous Notes Miscellaneous - Provider, Scanning - 03/19/2013 10:18 PM EDT Darianaaneous - Provider, Scanning - 03/19/2013 10:16 PM EDT Op Note - Eric Livingston MD - 03/19/2013 2:25 PM EDT [facility] Operative Note Patient Name: Hardik Escudero : [id number] MR#: [id number] Case Date: 03/19/2013 Surgeon: Surgeon(s) and Role: * Eric Livingston MD - Primary * Anthony Brice MD - Fellow-Interventional Preoperative diagnosis: Esophegeal intramucosal CA possible EMR Postoperative diagnosis: * No post-op diagnosis entered * Procedure(s): EGD, UPPER GI ENDOSCOPY UPPER EUS- ENDOSCOPIC ULTRASOUND Full procedure note is documented under the Procedure section of eD. Darianaaneous - Provider, Scanning - 03/19/2013 11:38 AM EDT documented in this encounter Plan of Treatment Not on filedocumented as of this encounter Procedures Procedure Name Priority Date/Time Associated Diagnosis Comme nts SURGICAL PATHOLOGY Routine 03/19/2013 2:36 PM Res ults for this REPORT EDT procedure are i n the results section. SPECIMEN TO Routine 03/19/2013 2:36 PM Results f or this PATHOLOGY EDT procedure are i n the results section. UPPER EUS- 03/19/2013 1:05 PM Esophegeal ENDOSCOPIC EDT intramucosal CA ULTRASOUND possible EMR EGD, UPPER GI 03/19/2013 1:05 PM Esophegeal ENDOSCOPY EDT intramucosal CA possible EMR UPPER GI ENDOSCOPY Routine 03/19/2013 12:49 Resul ts for this PM EDT procedure are i n the results section. documented in this encounter Results Surgical Pathology Report (03/19/2013 2:36 PM EDT) [facility] Method Time Signature Surgical CERNER Pathology ? [facility] Report ? Provider: ?? ERIC LIVINGSTON ?Pt. Name: ?? HARDIK ESCUDERO ? Acc #: ?[id number] ?Pt. MRN: ?[id number] ? Col Date: ?? 3 ? /Sex: ?1945,(68 years),Male ? Rec Date: ?? 03/19/2013 ? LOC: ?4T ? SURGICAL PATHOLOGY ? ---Pathologic Diagnosis--- ? Distal esophagus, EMR: ? 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 ? The lateral mucosal a nd deep resection margins are uninvolved by dysplasia ? or intramucosal carcinoma. ? CR-0 ? 03/20/13 ? AAS ? 03/20/13 Verified by: ? Kinga Magana MD ? Pathologist ? (Electronic Si gnature) ? The attending pathologist whose signature appears o n this report has ? reviewed all diagnostic slides and has edited the isabel ss and/or ? microscopic portion of the report in rendering the fi nal pathologic ? diagnosis. ? ---Gross Description--- ? A - Labeled/Fixative: EMR fragments distal esophagus, formalin. ? Quantity/Size: Two, 0.8 and 1.3 cm. ? Tissue Description: Soft, red, nodular mucosa. ? Sections/Processing: The largest specimen is inked and serially sectioned. ? The ends are submitte d in (1); the remainder in (2); (3) smaller specimen ? trisected. (T3) ??sns ? ---Clinical Information--- ? Specimen Submitted: ? A - EMR fragments distal esophagus ? Clinical History: ? Barretts with focal HGD/IMC s/o ER of nodularity. ? Clinical Diagnosis: ? Same Specimen (Source) Anatomical Collection Method Collection Time Re ceived Time Location / / Volume Laterality 03/19/2013 2:36 PM EDT Eric Livingston MD PATHOLOGY/CYTOLOGY ORDERABLE S Performing Organization Address [facility]/ZIP Code Phon e Number [address] [facility] Specimen to Pathology (surgical or derm) (03/19/2013 2:36 PM EDT) Specimen Anatomical Collection Method Collection Time Receive d Time (Source) Location / / Volume Laterality AP Specimen 03/19/2013 2:36 PM 3 2:36 EDT PM EDT Narrative [facility] - 03/19/2013 2:36 PM E DT Specimen requisition ordered. ??Separate Pathology report to follow Eric Livingston MD PATHOLOGY/CYTOLOGY ORDERABLE S Performing Organization Address City/[facility] [place] [address] [facility] UPPER GI ENDOSCOPY (03/19/2013 12:49 PM EDT) Component Value Ref Test Analysis Performed At [facility] Method Time Signature UPPER GI [facility] ENDOSCOPY Endoscopy Patient Name: Hardik Escudero ? Procedure Date: 03/19/2013 12:49 PM ? Date of : 1945 ? Age: 68 ? Order #: [id number] ? Procedure: ? Upper GI endoscopy Indications: ? For therapy of Lin's esophagus, ? Riley's high grade dysplasi a, IMC Providers: ? Eric Livingston MD, Sandy Little , ? RN, Julisa Hussein, Surgical Territory Manager , Anthony ? Feliberto Brice MD Referring : ?Victor M Jeff, , Redd Oseguera Walk o, ? ,FACS Medicines: [...] procedure based on ? age 65 or older. ? The procedure, indications, b enefits, ? [...] the procedu re well. ? Findings: ? Lin's esophagus was present, extending from the ? upper extent of the gastric folds which were at 33 cm ? from the incisors to the Z-line which was at 25 cm ? from the incisors. Subtle nodularity was present from ? 31 to 32 cm as mild depressed mucosa with surrounding ? mucosal irregularity (see images). There were smaller ? scattered squamous islands from 31-25 cm. ? A medium-sized hiatus hernia was present. ? Otherwise normal stomach including retroflex view of ? cardia and fundus. ? The examined duodenum was normal. ? Preparations were made for mucosal resection of the ? nodularity. Band ligator (DUETTE) and snare mucosal ? resection was successfully performed (3 pieces). ? Impression: ?- Lin's esophagus with focal ? nodularity which may represen t area ? of IMC/HGD-s/p EMR in 3 piece s. ? - Hiatus hernia. ? - Normal examined duodenum. Recommendation: ?- Await pathology results. ? - Repeat the upper endoscopy in 2 ? months for retreatment/Barrx RFA of ? remaining Lin's. ? - Twice daily PPI. ? - The attending physician jaime grey ? above was present for the ent kalpana ? procedure. ? Erci Livingston MD 03/19/2013 2:23 PM This report has been signed electronically. Number of Addenda: 0 Note Initiated On: 03/19/2013 12:49 PM Specimen (Source) Anatomical Collection Method Collection Time Re ceived Time Location / / Volume Laterality 03/19/2013 12:49 PM EDT Victor M Jeff DO GENERAL SURGICAL ORDERABLES Performing Organization Address City/State/ZIP Code Phon e Number [employer] documented in this encounter Visit Diagnoses Not on filedocumented in this encounter Administered Medications Inactive Administered Medications - up to 3 most recent administrations Medication Order MAR Action Action Date Dose Rate Site lactated ringers infusion New Bag 03/19/2013 11:57 AM 100 mL/hr 100 mL/hr 100 mL/hr, Intravenous, EDT CONTINUOUS, Starting on Sun03/19/13 at 1215, Until Sun03/19/13 at 1810, Endoscopy (Day of Procedure) documented in this encounter Active and Recently Administered Medications Times are shown in EDT. Continuous Medication Order 03/17/2013 03/18/2013 03/19/2013 lactated ringers infusion (CANCELED) 1157 (New Bag - Provider: Eric Shetty RN) 100 mL/hr, at 100 mL/hr, Intravenous, CO NTINUOUS, Starting Sun03/19/13 at 1215, Until Sun03/19/13 at 1810, Endo (Day of Procedure) documented in this encounter Care Teams Flower Picker Relationship Specialty Start Date End Date Victor M Jeff DO PCP - General 03/14/[address] [place] [address] documented as of this encounter
--- OUTSIDE RECORDS SUMMARY | 2022-08-10 23:24 | XMS_ITS | Encounter Summary ---
:1945 Author Organization [facility] [place] [address] Care Team Providers Name Role Phone TomerVictor M alvarado Primary Care Provider Encounter Details Date Type Department Care Team Description 12/10/2013 Hospital En[place] [facility] [place] [address] [facility] [phone] [facility] DEPT. [place], [place] [address] Social History Tobacco Use Types [...] not get better as expected. [facility] [phone] 8a-5p Same Day Endo [phone] 7a-8p Otherwise contact [phone] and ask to speak to the jewish thought professor javascript front end developer Follow-up care is a [place] part of [...] Component Value Ref Test Analysis Performed At [facility] Range Method Time Signature UPPER GI [facility] ENDOSCOPY Endoscopy Patient Name: Hardik Arevalo ? Procedure Date: 12/10/2013 11:07 AM ? Date of : 1945 ? Age: 68 ? Order #: [id number] ? Procedure: ? Upper GI endoscopy Indications: ? Lin's high grade dysplasia, ? Follow-up of previous ablatio n ? treatment of Lin's esopha fallon, ? Follow-up of endoscopic mucos al ? resection of Lin's esopha fallon Providers: ? Eric Livingston MD, Sukumar ? MD Buster, Bentley Almazan, RN, ? David Hyattician, Anthony Dao ? MD Babs Referring MD: [...] in 3 ? months for follow-up of [place] tt's ? ablation. ? - The attending [...] Active and Recently Administered Medications Care Teams Croze Machine Operator Relationship Specialty Start Date End Date Victor M Jeff DO PCP - General 03/14/[address] [place] [address] documented as of this encounter
--- OUTSIDE RECORDS SUMMARY | 2022-08-10 23:24 | XMS_ITS | Encounter Summary ---
:1945 Author Organization [facility] Address [facility] [place] [address] Care Team Providers Name Role Phone Victor M Jeff Primary Care Provider Encounter Details Date Type Department Care Team Description 05/20/2013 Surgery Gastroenterology at [facility] Eric Livingston, EGD, UPPER GI [facility] [place] [address] [facility] [phone] DR GASTROENTEROLOGY DEPT. [place], [place] [address] Social History Tobacco Use Types [...] not get better as expected. 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 Here for [...] Livingston MD - 05/20/2013 9:47 AM EDT [facility] Operative Note Patient Name: Hardik Arevalo : [id number] MR#: [id number] Case Date: 05/20/2013 Surgeon: Surgeon(s) and Role: [...] Component Value Ref Test Analysis Performed At [facility] Range Method Time Signature UPPER GI [facility] ENDOSCOPY Endoscopy Patient Name: Hardik Arevalo ? Procedure Date: 05/20/2013 8:54 AM ? Date of : 1945 ? Age: 68 ? Order #: [id number] ? Procedure: ? Upper GI endoscopy Indications: ? Lin's high grade dysplasia, ? Follow-up endoscopic mucosal ? resection of Lin's esopha fallon, for ? Barrx RFA Providers: ? Eric Livingston MD, Anthony Dao ? MD Babs, Bentley Almazan , RN, ? Tiara Maki, Actuarial Technician Referring MD: ?Victor M Jeff DO, Redd [...] The endoscope was ? introduced in a [id number] manner with the ablation ? catheter. The [...] in 3 ? months for follow-up of Epworth tt's ? ablation. ? - The attending [...] Active and Recently Administered Medications Care Teams Player Manager Relationship Specialty Start Date End Date Victor M Jeff DO PCP - General 03/14/[address] [place] [address] documented as of this encounter
--- OUTSIDE RECORDS SUMMARY | 2022-08-10 23:24 | XMS_ITS | Encounter Summary ---
:1945 Author Organization [facility] Address [facility] [place] [address] Care Team Providers Name Role Phone Victor M Jeff DO Primary Care Provider Encounter Details Date Type Department Care Team Description 03/24/2014 Anesthesia Event Gastroenterology at [facility] Nolan Valdez MD [facility] [address] ANESTHESIOLOGY [place] [address] [facility] Victoria Juan CRNA [facility] DR ANESTHESIOLOGY [place] [address] [place] [address] Anesthesia Record Procedure Summary Procedure Name Responsible Anesthesia Start Anesthesia Stop Time Anesthesiologist Time EGD WITH BIOPSY Nolan Valdez MD 03/24/14 0957 03/24/14 104 3 (WRVU 2.49) (Trunk) Events Date Time Event Comment 03/24/2014 0916 0957 AN Verify 0957 Start 0957 An Start Data 1003 Anesthesia Ready 1003 Quick Note vss 1009 Procedure Start 1038 Procedure Stop 1043 Stop Name Total IV Lidocaine 80 mg Propofol 140 mg Propofol INF 661.96 mg Lactated Ringers 600 mL Agents Name O2 Blood No blood administrations on file. Lines, Drains, and Airways Type Details Placement Removal PIV 03/24/14; 0936; 03/24/14 0936 by Beulah 03/10 01/21 1150 by Leon peho-brv-vhijed catheter POOL Ruvalcaba, RN system; 20 gauge, 1 in length; les rn; intradermal injection, tolerated well; 1; metacarpal vein (top of hand), right, no redness, ecchymosis, warmth, swelling, pain, drainage; 03/24/14; 1150 documented in this encounter Social History Tobacco Use Types Packs/Day Years Used Date Smoking Tobacco: Every Day Alcohol Use Standard Drinks/Week Comments No 0 (1 standard drink = 0.6 oz pure alcoho l) hunting season Sex Assigned at Date Recorded Not on file documented as of this encounter OR Notes Anesthesia Postprocedure Evaluation - Nolan Valdez MD - 03/24/2014 11:31 AM EDT Patient: Hardik Arevalo Procedure(s) Performed: Procedure(s): EGD WITH BIOPSY Actual Anesthetic: MAC Patient location: PACU Post-op pain: Adequate analgesia Post-op nausea: no nausea or vomiting Last Vitals: Filed Vitals: 03/24/14 1049 BP: 115/69 Pulse: 61 Temp: Resp: 18 Post-op cardiovascular and respiratory status: is stable Level of consciousness: awake, alert and oriented Complications: no apparent complications and tolerated the procedure well, denies recall. Fluid Status: normal Anesthesia Preprocedure Evaluation - Nolan Valdez MD - 03/24/2014 9:15 AM EDT Pre-Anesthesia Evaluation for: Hardik Arevalo a 69 y.o. male. Procedure(s): EGD, UPPER GI ENDOSCOPY Patient Active Problem List Diagnosis ??? Intramucosal esophageal cancer No past medical history on file. Past Surgical History Procedure Date ??? Endoscopic us exam, esoph 03/19/2013 UPPER EUS- ENDOSCOPIC ULTRASOUND performed by Eric Livingston MD at [facility] ENDOSCOPY ??? Upper gi endoscopy, diagnostic 08/26/2013 EGD, UPPER GI ENDOSCOPY performed by Eric Livingston MD at [facility] ENDOSCOPY ??? Upper gi endoscopy, diagnostic 12/10/2013 EGD, UPPER GI ENDOSCOPY performed by Eric Livingston MD at [facility] ENDOSCOPY History Substance Use Topics ??? [...] Denies CP. 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 Pt ID, seen, examined, risks/benefits discussed, consent obtained. Region - Other Informed Consent: Anesthetic plan and risks discussed with patient. Plan discussed with CASH CROP FARMER. [facility]. Assessment: documented in this encounter Plan of Treatment Not on filedocumented as of this encounter Visit Diagnoses Not on filedocumented in this encounter Administered Medications Inactive Administered Medications - up to 3 most recent administrations Medication Order MAR Action Action Date Dose Rate Site lactated ringers infusion New Bag 03/24/2014 10:04 AM EDT mL CONTINUOUS PRN, Starting on Sun03/24/14 at 1004, Until Sun03/24/14 at 1043, Anesthesia Intra-op lidocaine (PF) (XYLOCAINE) 100 mg/5 mL (2 %) Given 4 9:59 AM EDT 80 mg injection PRN, Starting on Sun03/24/14 at 0959, Until Sun03/24/14 at 1043, Anesthesia Intra-op, Routine propofol (DIPRIVAN) 10 mg/mL bolus injection Given 10:00 AM EDT 140 mg (Anesthesia) PRN, Starting on Sun03/24/14 at 1000, Until Sun03/24/14 at 1043, Anesthesia Intra-op propofol (DIPRIVAN) infusion New Bag 03/24/2014 9:59 AM 200 mcg/kg/min 104.5 mL/hr CONTINUOUS PRN, Starting on EDT Sun03/24/14 at 0959, Until Sun03/24/14 at 1043, Anesthesia Intra-op, Routine documented in this encounter Care Teams Underground Mine Superintendent Relationship Specialty Start Date End Date Victor M Jeff DO PCP - General 03/14/[address] [place] [address] documented as of this encounter
--- OUTSIDE RECORDS SUMMARY | 2022-08-10 23:24 | XMS_ITS | Encounter Summary ---
:1945 Author Organization [facility] [place] [address] Care Team Providers Name Role Phone TomerVictor M alvarado Primary Care Provider Encounter Details Date Type Department Care Team Description 03/14/2013 Hospital Encounter Laboratory Redd Benson MD [place] [address] [address] [place] [address] [phone] (Wo rk) Social History Tobacco Use Types Packs/Day Years Used Date Smoking Tobacco: Never Assessed Sex Assigned at Date Recorded Not on file documented as of this encounter Medications at Time of Discharge Medication Sig Dispensed Refills Start Date End Date omeprazole (PRILOSEC) 20 Take 20 mg by mouth 2 0 mg capsule times daily. documented as of this encounter Plan of Treatment Not on filedocumented as of this encounter Procedures Procedure Name Priority Date/Time Associated Diagnosis Comme [facility] SURGICAL PATHOLOGY Routine 03/14/2013 7:50 AM Res ults for this REPORT EDT procedure are i n the results section. documented in this encounter Results Surgical Pathology Report (03/14/2013 7:50 AM EDT) Component Value Ref Test Analysis Performed At [facility] Range Method Time Signature Surgical CERNER Pathology ? [facility] Report ? Provider: ?? REDD BENSON ? Pt. Name: ?? HARDIK ESCUDERO ? Acc #: ?[id number] ?Pt. MRN: ?[id number] ? Col Date: ?? 03/14/2013 ?/Sex: ?1945,(68 years),Male ? Rec Date: ?? 03/17/2013 ?LOC: ?OPW ? SURGICAL PATHOLOGY ? ---Pathologic Diagnosis--- ? CONSULTATION CASE ? Endoscopic biopsies ([id number], collection date ): ? A. Biopsy 35cm - Ca rdiac mucosa with metaplastic goblet cells, consistent ? with Lin metaplasia. No dysplasia is seen. ? B. 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 ? C. Biopsy 33cm - Lin's esophagus, negative for dysplasia. ? D. Biopsy 31cm - Lin's esophagus, negative for dysplasia. ? E. Biopsy 29cm - Lin's esophagus, negative for dysplasia. ? F. Biopsy 27cm - Lin's esophagus, negative for dysplasia. ? G. Descending colon polypX3 - Tubular adenoma. ? CR-PX ? 03/18/13 ? AAS ? 03/18/13 Verified by: ? Kinga Magana MD ? Pathologist ? (Electronic Si gnature) ? The attending pathologist whose signature appears o n this report has ? reviewed all diagnostic slides and has edited the isabel ss and/or ? microscopic portion of the report in rendering the fi nal pathologic ? diagnosis. ? ---Microscopic Description--- ? Slides reviewed, microscopic description not recorded . ? ---Gross Description--- ? [facility] ([facility]) pathology slide(s) are reviewed. ??Refer ? to Diagnosis and Specimen Submitted for specific case information. ? For the full text of the [facility] report(s) please refer to Non-DH ? Documentation Pathology in the electronic health maxim rd (eDH). ? [facility] ? Provider: ?? REDD BENSON ? Pt. Name: ?? HARDIK ESCUDERO ? Acc #: ?[id number] ?Pt. MRN: ?[id number] ? Col Date: ?? 03/14/2013 ?/Sex: ?1945,(68 years),Male ? Rec Date: ?? 03/17/2013 ?LOC: ?OPW ? SURGICAL PATHOLOGY ? ---Clinical Information--- ? Specimen Submitted: ? CONSULTATION CASE ? A - 14 slides labeled [id number], collection date 02/19. ? 950 ? Report to: ? Mojgan Pope MD ? [facility] ? Surgical Pathology Department ? [facility], [facility], 2nd Floor ? [address] ? [place], [place] ??[address] ? Specimen (Source) Anatomical Collection Method Collection Time Re ceived Time Location / / Volume Laterality 03/14/2013 7:50 AM EDT Redd Benson MD PATHOLOGY/CYTOLOGY ORDERABLE S Performing Organization Address City/State/ZIP [place] [address] [facility] documented in this encounter Visit Diagnoses Not on filedocumented in this encounter Care Teams Auto Service Representative Relationship Specialty Start Date End Date Victor M Jeff DO PCP - General 03/14/[address] [place] [address] documented as of this encounter
--- OUTSIDE RECORDS SUMMARY | 2022-08-10 23:24 | XMS_ITS | Encounter Summary ---
:1945 Author Organization [facility] [place] [address] Care Team Providers Name Role Phone TomerVictor M alvarado Primary Care Provider Encounter Details Date Type Department Care Team Description 03/19/2013 Hospital Encounter [facility]ology at [facility] [place] [address] [facility] [phone] [facility] DEPT. [place], [place] [address] Social History Tobacco Use Types [...] occur please notify your MD. Please call [phone] before 5pm with problems, questions or concerns. After 5 pm call [phone] and ask to speak with the GI fellow consumer recruiter. Discharge instructions reviewed with patient who expresses understanding. Patient InstructionsEric Livingston MD - 03/19/2013 2:25 PM EDT Please see Recommendations in the Provation procedure report which is documented in the procedural note in E-DH. AttachmentsThe following attachments cannot be sent through Care Everywhere. UPPER GI ENDOSCOPY: WHAT TO EXPECT AT HOME (KOREAN)documented in this encounter Medications at Time of [...] Livingston MD - 03/19/2013 2:25 PM EDT [facility] Operative Note Patient Name: Hardik Escudero : [id number] MR#: [id number] Case Date: 03/19/2013 Surgeon: Surgeon(s) and Role: [...] Surgical Pathology Report (03/19/2013 2:36 PM EDT) [facility] Method Time Signature Surgical CERNER Pathology ? [facility] Report ? Provider: ?? ERIC LIVINGSTON ?Pt. Name: ?? HARDIK ESCUDERO ? Acc #: ?[id number] ?Pt. MRN: ?[id number] ? Col Date: ?? 3 ? /Sex: [...] MD PATHOLOGY/CYTOLOGY ORDERABLE S Performing Organization Address [facility]/ZIP Code Phon e Number [address] [facility] Specimen to Pathology (surgical or derm) (03/19/2013 2:36 PM EDT) Specimen Anatomical Collection Method Collection Time Receive d Time (Source) Location / / Volume Laterality AP Specimen 03/19/2013 2:36 PM 3 2:36 EDT PM EDT Narrative [facility] - 03/19/2013 2:36 PM E DT Specimen requisition ordered. ??Separate Pathology report to follow Eric Livingston MD PATHOLOGY/CYTOLOGY ORDERABLE S Performing Organization Address City/[facility]/ZIP Code Phon e Number [address] [facility] UPPER GI ENDOSCOPY (03/19/2013 12:49 PM EDT) Component Value Ref Test Analysis Performed At [facility] Method Time Signature UPPER GI [facility] ENDOSCOPY Endoscopy Patient Name: Hardik Escudero ? Procedure Date: 03/19/2013 12:49 PM ? Date of : 1945 ? Age: 68 ? Order #: [id number] ? Procedure: ? Upper GI endoscopy Indications: ? For therapy of Lin's esophagus, ? Lin's high grade dysplasi a, [facility] Providers: ? Eric Livingston MD, Sandy Little , ? RN, Julisa Hussein, Customer Resource Specialist , Anthony ? Feliberto Brice MD Referring MD: ?Victor M Jeff, , Redd Oseguera Walk [...] reactions. The ? Endoscope was introduced thro [facility] the ? mouth, and advanced to the [...] ? procedure. ? Eric Livingston MD 03/19/2013 2:23 PM This report has been signed electronically. 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
--- OUTSIDE RECORDS SUMMARY | 2022-08-10 23:25 | XMS_ITS | Encounter Summary ---
:1945 Author Organization [facility] Address [address] [place] [address] Care Team Providers Name Role Phone Unknown, Provider Primary Care Provider Encounter Details Date Type Department Care Team Description 09/22/2010 Results Only [facility] Redd Benson MD Laboratory Services - [address] [place] [address] [address] [facility] [place] [address] [phone] Social History Tobacco Use Types Packs/Day Years Used Date Smoking Tobacco: Never Assessed Sex Assigned at Date Recorded Not on file documented as of this encounter Plan of Treatment Not on filedocumented as of this encounter Procedures Procedure Name Priority Date/Time Associated Diagnosis Comme [facility] SURGICAL PATHOLOGY Routine 09/22/2010 0:00 EST Re sults for this procedure are i n the results section. documented in this encounter Results SURGICAL PATHOLOGY (09/22/2010 0:00 EST) Component Value Ref Test Analysis Performed At [facility] Method [facility] Pathology SURGICAL PATHOLOGY REPORT ? BENJIE HER Report: Reports generated via electr [employer] [place] interface contain original data; ? TREVOR WILL however they are lacking the format of the original report. ? Caution should be taken when reading/interpreting unformatted reports. ? Name: ? KENA, HARDIK B ? Accession #: ? [id number] ? : ? 1945 (Age: 65) ??M ? Collec t Date: ? 09/22/2010 ? Location: ? [facility] ? R eceive Date: ? 09/23/2010 ? Provider: REDD WALKO MD ? Copy to: ANABEL F DION DO ? Final Pathologic Diagnosis: ? Gallbladder, cholecys tectomy: ? 1. ?Active gun synchronizer shirley, hemorrhagic and focally gangrenous cholecystitis. ?? 2. ? Reactive epithelial changes. ? 3. ? Cholelithiasis (isabel ss diagnosis). ? Document reviewed and electr onically signed by: ? Jazmyn Bentley MD ? Report ??Date: 09/28/2010 16 :52 ? By the signature above, the attending physician certifies that he/she has ? personally conducted a gross and/or microscopic examination of the described ? specimens and rendered or co nfirmed the above diagnosis. ? Specimen(s) Received: ? Gallbladder ? Clinical History: ? RUQ pain ??gallstones and thickened GB wall ? Gross Description: ? Received in formalin labelled Hardik Arevalo and gallbladder is a 9.5 x 4.5 x 3.7 cm intact gallblad juan miguel with attached, 0.5 cm in length by 0.6 cm in ? diameter segment of patent c ystic duct, the margin of which is inked black. ??The serosa of the gallbladder is hutchison-white to hutchison-brown, dusky and has a small ? amount of fibrinopurulent ex udate present. ??Opening the gallbladder reveals ? seven brown-black, mottled c holeliths that range from 0.6 to 1.8 cm in greatest dimension. ??The mucosa of ethan borrego gallbladder is red-brown, diffusely hemorrhagic ?? and slightly shaggy. ??The w all is indurated and ranges from 0.3 to 1.0 cm in ? thickness with focal hemorrh age within the wall. ??No lymph nodes are identified. Two community engagement representative sections of gallbladder as well as the en face cystic duct ?? margin are submitted in a si ngle cassette. ??(Katharina Lane)/fiorella ? End of Report ? Specimen (Source) Anatomical Collection Method Collection Time Re ceived Time Location / / Volume Laterality 09/22/2010 09/23/2010 15:3 2 EST Redd Benson MD PATHOLOGY ORDERABLES Performing Organization Address City/State/[facility] Phon e Number [facility] [address] [place] [address] SERVICES [facility] [address] [place] [address] documented in this encounter Visit Diagnoses Not on filedocumented in this encounter Care Teams Cda Teacher Relationship Specialty Start Date End Date Unknown, Provider, PCP - General 09/27/10 02/20/13 documented as of this encounter
--- OUTSIDE RECORDS SUMMARY | 2022-08-10 23:25 | XMS_ITS | Clinical Summary ---
:1945 Author Organization [facility] Address [address] [place] [address] Care Team Providers Name Role Phone Victor M Jeff DO Primary Care Provider Social History Tobacco Use Types Packs/Day Years Used Date Smoking Tobacco: Never Assessed Sex Assigned at Date Recorded Not on file Plan of Treatment Health Maintenance Due Date Last Done Comments Hepatitis C Screen 1945 COVID-19 Vaccine (#1) 1945 Fall Risk Screening 2010 Care Teams Public Health Director Relationship Specialty Start Date End Date Victor M Jeff, PCP - General 02/21/13 [address] [address]
--- OUTSIDE RECORDS SUMMARY | 2022-08-10 23:25 | XMS_ITS | Encounter Summary ---
:1945 Author Organization [facility] Address [address] [place] [address] Care Team Providers Name Role Phone Unknown, Provider Primary Care Provider Encounter Details Date Type Department Care Team Description 11/23/2010 Results Only [facility] Redd Benson MD Laboratory Services - [address] [place] [address] [address] [place] [address] [phone] Social History Tobacco Use Types Packs/Day Years Used Date Smoking Tobacco: Never Assessed Sex Assigned at Date Recorded Not on file documented as of this encounter Plan of Treatment Not on filedocumented as of this encounter Procedures Procedure Name Priority Date/Time Associated Diagnosis Comme [facility] SURGICAL PATHOLOGY Routine 11/23/2010 0:00 EDT Re sults for this procedure are i n the results section. documented in this encounter Results SURGICAL PATHOLOGY (11/23/2010 0:00 EDT) Component Value Ref Test Analysis Performed At [facility] Method Time Signature Pathology SURGICAL PATHOLOGY REPORT ? BENJIE HER Report: Reports generated via electr AirCell interface contain original data; ? TREVOR WILL however they are lacking the format of the original report. ? Caution should be taken when reading/interpreting unformatted reports. ? Name: ? KENA, HARDIK B ? Accession #: ? [id number] ? : ? 1945 (Age: 65) ??M ? Collec t Date: ? 11/23/2010 ? Location: ? [facility] ? R eceive Date: ? 11/23/2010 ? Provider: REDD WALKO MD ? Copy to: ANABEL F DION DO ? Final Pathologic Diagnosis: ? A. ?Stomach, celia dy, biopsies: ? 1. ?Oxyntic-typ e mucosa with mild chronic gastritis. ? 2. ? No Helicobacter pyl xavi-like microorganisms identified on H&E-stained ? sections. ? B. ?Esophagus, 35 cm, biopsies: ? 1. 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 ?? 2. ? No dysplasia identi fied. ? 3. ? Chronic and subacut e inflammation and reactive epithelial changes. ? C. ?Esophagus, 30 cm, biopsies: ? 1. 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 ?? 2. ? No dysplasia identi fied. ? 3. ? Chronic and subacut e inflammation and reactive epithelial changes. ? D. ?Esophagus, 25 cm, biopsies: ? 1. 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 ?? 2. ? No dysplasia identi fied. ? 3. ? Chronic and subacut e inflammation and reactive epithelial changes. ? E. ?Colon, cecu m, polyp, biopsies: ? 1. ?Tubular tena noma. ? F. ?Colon, sigm oid, polyp, biopsy: ? 1. ?Hyperplasti c polyp. ? G. ?Rectum, zina yps, biopsies: ? 1. ?[place] us adenoma. ? 2. ? Hyperplastic polyp. ? Document reviewed and electr onically signed by: ? ANA LUISA MOUNT MD ? Report ??Date: 11/28/2010 13 :01 ? By the signature above, the attending physician certifies that he/she has ? personally conducted a gross and/or microscopic examination of the described ? specimens and rendered or co nfirmed the above diagnosis. ? Specimen(s) Received: ? A. ?Bx gastric body ? B. ? Bx esophagus 35 cm ? C. ? Bx esophagus 30 cm ? D. ? Bx esophagus 25 cm ? E. ? Cecal polyp ? F. ? Sigmoid polyp ? G. ? Rectal polyps x3 ? Clinical History: ? Heartburn; colorectal CA screen; B-D ??? Lin's; A-D ??EGD; E-G ? colonoscopy ? Gross Description: ? Received in formalin labelled [place], Hardik and biopsy gastric body ?? are two pink-hutchison irregular s oft tissues, 0.5 x 0.3 x 0.2 cm and 0.7 x 0.2 x 0.1 cm. ??Submitted in toto as ( A). ? Received in formalin Hardik Kaiser and biopsy esophagus 35 cm are three pink-hutchison irregular sof t tissues ranging from 0.3 x 0.3 x 0.2 cm to 0.5 x ?? 0.2 x 0.2 cm. ??Submitted in toto as (B). ? Received in formalin Hardik Kaiser and biopsy esophagus 30 cm are three pink-hutchison irregular sof t tissues ranging from 0.3 x 0.2 x 0.2 cm to 0.4 x ?? 0.2 x 0.2 cm. ??Submitted in toto as (C). ? Received in formalin jevon d Kena, Hardik and biopsy esophagus 25 cm are three pink-hutchison irregular sof t tissues ranging from 0.2 x 0.2 x 0.1 cm to 0.3 x ?? 0.2 x 0.2 cm. ??Submitted in toto as (D). ? Received in formalin jevon d Kena, Hardik and cecal polyp are four ? pink-hutchison irregular soft tiss ues, each 0.1 x 0.1 x 0.1 cm. ??Submitted in toto as (E1) and (E2). ? Received in formalin jevon d Kena, Hardik and sigmoid polyp is a single ?? 0.3 x 0.3 x 0.3 cm pink-hutchison irregular soft tissue. ??Submitted in toto as (F). ? Received in formalin jevon d [place], Hardik and rectal polyps x3 is a 1.0 x 0.9 x 0.9 cm hutchison-red, lobula matilda, pedunculated, polypoid tissue as well as two ?? pink-hutchison irregular tissues t hat are each 0.3 x 0.3 x 0.3 cm. ??The margin of the larger, polypoid tissue is i nked black. ??It is quadrisected and entirely ? submitted as (G1) and (G2) a nd the two smaller pieces are submitted intact as ?? (G3). ??(Katharina Lane)/hugo ? End of Report ? Specimen (Source) Anatomical Collection Method Collection Time Re ceived Time Location / / Volume Laterality 11/23/2010 11/23/2010 17:1 7 EDT Redd Benson MD PATHOLOGY ORDERABLES Performing Organization Address City/State/[facility] Code Phon e Number [facility] [address] [place] [address] SERVICES [facility] [address] [place] [address] documented in this encounter Visit Diagnoses Not on filedocumented in this encounter Care Teams University Administrative Assistant Relationship Specialty Start Date End Date Unknown, Provider, PCP - General 09/27/10 02/20/13 documented as of this encounter
--- OUTSIDE RECORDS SUMMARY | 2022-08-10 23:25 | XMS_ITS | Encounter Summary ---
:1945 Author Organization [facility] Address [address] [place] [address] Care Team Providers Name Role Phone Unknown, Provider Primary Care Provider Encounter Details Date Type Department Care Team Description 02/19/2013 Results Only [facility] Redd Benson MD Laboratory Services - [address] [place] [address] [address] [facility] [place] [address] [phone] Social History Tobacco Use Types Packs/Day Years Used Date Smoking Tobacco: Never Assessed Sex Assigned at Date Recorded Not on file documented as of this encounter Plan of Treatment Not on filedocumented as of this encounter Procedures Procedure Name Priority Date/Time Associated Diagnosis Comme [facility] SURGICAL PATHOLOGY Routine 02/19/2013 8:59 EDT Re sults for this procedure are i n the results section. documented in this encounter Results SURGICAL PATHOLOGY (02/19/2013 8:59 EDT) Component Value Ref Test Analysis Performed At [facility] Method Time [facility] Pathology SURGICAL PATHOLOGY REPORT LEANDRO GONZALEZ Report: Reports generated via electronic interface contain origina l data; TREVOR WILL however they are lacking the format of the original report. Caution should be taken when reading/interpreting unformatte d reports. Name: ? HARDIK ESCUDERO ? Accession #: ? [id number] ? : ? 1945 (Age: 68) ??M ? Collect Date: ? 02/19/2013 ? Location: ? [facility] ? Receive Date: ? 02/19/2013 ? Provider: REDD BENSON MD Copy to: ANABEL ASHLEY DO ? Final Pathologic Diagnosis: A. ?Esophagus, 35 cm, biopsy: 1. ?Gastric car remi and body type mucosa with intestinal metaplasia. 2. ? Negative for dysplasia. B. ? Esophagus, ulcer at 33 cm, biopsy: 1. ?At least intramucosal carcinoma occurring in a background of intestinal metaplasia. See comment. 2. ? Surface erosion. C. ? Esophagus, 33 cm, biopsy: 1. ?Extensive i ntestinal metaplasia and reactive atypia occurring in a background of erosive esophagitis. 2. ? No definitive dysplasia. D. ?Esophagus, 31 cm, biopsy: 1. ?Extensive i ntestinal metaplasia and reactive atypia occurring in a background of erosive esophagitis. 2. ? No definitive dysplasia. E. ?Esophagus, 29 cm, biopsy: 1. ?Extensive intestinal metaplasia. 2. ? Negative for dysplasia. F. ? Esophagus, 27 cm, biopsy: 1. ?Indefinite for dysplasia occurring in a background of extensive intestinal metaplasia. 2. ? See comment. G. ?Colon, descending, 29cm, biopsy: 1. ?Tubular adenoma. Comment: ? The esophageal biopsy at 33cm (B) is significant for at least intramucosal carcinoma occurring in a background of extensive high grade dysplasia and surface erosion. ??The esophageal biopsy at 27cm (F) h as a focus of atypical glands occurring amongst reactive intestinal metaplasia bu ried under intact squamous metaplasia. Given t his location surface maturation can not be assessed and the diagnosis is therefore left as indefinite for dyspla natali. ??Deeper sections of (F1) and (G1) have been revi ewed. ??The findings of the esophageal biopsies have been discussed with Dr. Benson's office on 02/24. Document reviewed and electronically signed by: JULIANA SALOMON MD Report ??Date: 02/25/2013 13:26 By the signature above, the attending physician certifies th at he/she has personally conducted a gross and/or microscopic examin ation of the described specimens and rendered or confirmed the above diagnosis. Specimen(s) Received: A. ??Biopsy 35 cm #1 B. ??Ulcer at 33 cm #2 C. ??Biopsy 33 cm #3 D. ??Biopsy 31 cm #4 E. ??Biopsy 29 cm #5 F. ??Biopsy 27 cm #6 G. 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 Received in formalin labelled with proper patient identification (initials R, T) #1 bx 35 cm are four pink-hutchison tissues (0.3 x 0.2 x 0.2 cm to 0.4 x 0.4 x 0.2 cm). Entirely submitted in cassette A1 and A2. ? Received in formalin labelled with proper patient identification (initials R, T) #2 ulcer at 33 cm ar e two pink-hutchison tissue fragments (0.4 x 0.3 x 0.2 cm and 0.4 x 0.3 x 0.2 cm.). Submitted intact in cassette B1. ? Received in formalin labelled with proper patient identification (initials R, T) #3 bx 33 cm are four pink-hutchison tissues (0.2 x 0.2 x 0.2 cm to 0.3 x 0.2 x 0.2 cm). Entirely submitted in cassettes C1 and C2. ? Received in formalin labelled with proper patient identification (initials R, T) #4 bx 31 cm esophagus are four p ink-hutchison tissues (0.2 x 0.2 x 0.2 cm to 0.3 x 0.2 x 0.2 cm). Entirely submitted in cassette D1 and D 2. ? Received in formalin labelled with proper patient identification (initials R, T) #5 bx 29 cm are four pink-hutchison tissues (0.2 x 0.2 x 0.1 cm to 0.3 x 0.2 x 0.2 cm). Entirely submitted in cassette E1 and E2. ? Received in formalin labelled with proper patient identification (initials R, T) #6 bx 27 cm are five pink-hutchison tissues (0.3 x 0.1 x 0.1 cm to 0.4 x 0.3 x 0.2 cm). Entirely submitted in cassette F1 and F2. ? Received in formalin labelled with proper patient identification (initials R, T) #7 descending colon p olyp are three pink-hutchison tissues (0.2 x 0.2 x 0.2 cm to 0.3 x 0.3 x 0.2 cm). Entirely submitted in cassette G1. Dr. Pizarro 02/20/2013 12:00 PM End of Report Specimen Anatomical Collection Method Collection Time Receive d Time (Source) Location / / Volume Laterality 02/19/2013 8:59 02/19/2013 8 :59 EDT EDT Redd Benson MD PATHOLOGY ORDERABLES Performing Organization Address City/State/ZIP Code Phon e Number [facility] [address] [place] [address] SERVICES [facility] [address] [place] [address] documented in this encounter Visit Diagnoses Not on filedocumented in this encounter Care Teams Cut Order Hand Relationship Specialty Start Date End Date Unknown, Provider, PCP - General 09/27/10 02/20/13 documented as of this encounter
[2022-08-10 23:42] LABS: Troponin I 98 ng/L (<or=60)
[2022-08-10 23:43] VITALS: BP 135/72; PULSE 88; RESP 18; TEMP 36.4; O2SAT 93; O2SAT 97
[2022-08-10 23:45] VITALS: PULSE 88
[2022-08-10 23:52] VITALS: PULSE 89; RESP 18; O2SAT 94
[2022-08-11] VITALS (51 sets, daily range): BP systolic 126–149; BP diastolic 67–103; PULSE 64–102; RESP 15–30; TEMP 36.5–37.7; O2SAT 93–99
--- NOTE | 2022-08-11 00:48 | W.PM.HP.N ---
Date of service: 08/11/22 Time of Service: 00:48 Assessment and Plan Assessment and plan (1) CHF (congestive heart failure): Status: Chronic Assessment and plan: Exam, BNaP, and images c/w CHF, which is new for the patient. Stress of anemia likely part of cause. Cardiac ischemia also a concern with troponin bump. He is responding to furosemide, continue. Echocardiogram ordered, adjust medical regimen base on these results (2) Elevated troponin: Status: Acute Assessment and plan: This is concerning but I agree that with no chest pain or ischemic EKG changes this is not ACS. I agree with aspirin, will add statin even though his LDL was <100 off meds in June. Consider stress test to assess for ischemia if echo suggestive (3) Anemia: Status: Chronic Assessment and plan: Stable from morning to evening today. Guiac negative. Still most likely GI losses but this suggests subacute. Get iron labs, repeat CBC in am. I agree with holding off on transfusion for now unless he starts getting chest pain. (4) Hypertension: Status: Chronic Assessment and plan: BP okay on amldopine, but I am holding this, consider meds with cardiac benefit after we get the echo back. (5) Smoker: Assessment and plan: He is motivated to quit, has quit for years before. He has NRT gum, plan to use this. 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 Either way, he will need EGD/colo non-emergntly. (7) Hyperglycemia: Status: Acute Assessment and plan: Fasting glucose 10/25 c/w type 2 DM. Get A1c with labs to confirm. (8) DVT prophylaxis: Status: Acute Assessment and plan: TEDS/SCDs given severe anemia presumed to be blood loss (9) Discharge planning issues: Status: Acute Assessment and plan: Stable as med/surg boarder on ICU. Full code. History of Present Illness History of Present Illness Chief Complaint: dyspnea on exertion Narrative: 77 yo smoker with history of hypertension and history of Barretts esophagus (vs esophageal cancer?) presented to his primary care this morning with shortness of breath. Per PCP note he started feeling more SOB a month ago, but per patient states he felt much worse over the past 3 days. He did also have cough and some body aches. He was sent for a chest x-ray and labs and hemoglobin was 7.2 and was referred to the emergency room. He has had no chest pain or palpitations. He denies any GI bleeding or melena. He has not had abdominal pain or heart burn. He states he was due for an endoscopy for his esophagus during and hasn't had it. He has had no difficulty swallowing or weight loss. He was drinking 1 1/2 glasses of Dewars and water a day at [facility], right before this started, doesn't drink alcohol at home. He was being treated for claudication with cilostazol, but I could not find documentation of PAD, no statin use. Other notes reference Barretts esophagus but adenocarcinoma of esophagus on his list, patient understands he had early cancer but is cured. Also of note, he had fasting glucose of 140 on 07/04/22 but hasn't been given the formal diagnosis of type 2 DM. Review of Systems Constitutional Constitutional: Denies anorexia, Denies chills, Denies fever(s), Reports lethargy, Denies weakness and Denies weight loss Eyes Eyes: Denies change in vision and Denies irritation ENT Ears, Nose, Mouth, and Throat: Denies dizziness, Denies nasal congestion, Denies nasal discharge and Denies sore throat Cardiovascular Cardiovascular: Denies chest pain, Denies chest pain with activity, Denies syncope, Reports pedal edema, Denies palpitations, Denies orthopnea and Denies paroxysmal nocturnal dyspnea Respiratory Respiratory: Reports as per HPI and Denies excessive phlegm production Gastrointestinal Gastrointestinal: Reports as per HPI, Denies abdominal pain, Denies heartburn and Denies vomiting Genitourinary Genitourinary: Denies hematuria, Denies dysuria and Denies urinary incontinence Musculoskeletal Comments: legs don't hurt to walk, hip feels better after injection with ortho Integumentary/Breasts Skin/Breast: Denies rash and Denies skin ulcer Neurologic Neurologic: Denies dizziness, Denies syncope, Denies sensory deficit and Denies weakness Psychiatric Psychiatric: Denies mood swings and Denies panic attacks Endocrine Endocrine: Denies palpitations Hematologic/Lymphatic Hematologic/Lymphatic: Denies easy bleeding PFSH All Active Problems (Updated 08/11/22 @ 01:24 by Anthony Jean) Hyperglycemia (Acute) Discharge planning issues (Acute) DVT prophylaxis (Acute) Elevated troponin (Acute) CHF (congestive heart failure) (Chronic) Anemia (Chronic) CHF (congestive heart failure) (Chronic) Adventitious breath sounds (Acute) Shortness of breath (Acute) Degenerative joint disease of right hip (Acute) Claudication (Acute) Hip pain, right (Acute) 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 Sister No problems noted. Brother No problems noted. Son No problems noted. Son No problems noted. Social History (Updated 08/11/22 @ 01:05 by Anthony Jean) Smoking/Tobacco Use Status: Current every day Counseling given: counseling >3 minutes Smoking risk assessment performed?: Yes Alcohol Intake: current Drug use: Never Substance use type: does not use Do you feel safe at home: Yes Do you feel safe in your relationship?: Yes Additional Social history: Lives with on [address] outside of [facility]. Retired in 50s from [id number], then [employer]. Likes to [employer] and [employer] Allergies and Home Medications Allergies Allergy/AdvReac Type Severity Reaction Status Date / Time No Known Allergies Allergy Verified 08/10/22 13:18 Home Medications Medication Instructions Recorded Confirmed Type aspirin 81 mg chewable tablet 1 tab PO DAILY 01/14/13 08/10/22 History (Aspirin Low-Strength) multivitamin with minerals-folic 1 tab PO DAILY 12/28/18 08/10/22 History acid 200 mcg chewable tablet (One-A-Day Men VitaCraves) amlodipine 5 mg tablet 5 mg PO DAILY #90 tab-caps 07/15/21 08/10/22 Rx cilostazol 100 mg tablet 100 mg PO BID #60 tabs 03/14/22 08/10/22 Rx omeprazole 40 mg capsule,delayed 40 mg PO BID #90 tab-caps 06/08/22 08/10/22 History release (Prilosec) nicotine (polacrilex) 4 mg gum 4 mg buccal Q1H #100 ea 06/28/22 08/10/22 Rx (Nicorette) cephalexin 500 mg capsule 500 mg PO QID #40 caps 07/11/22 08/10/22 Rx furosemide 40 mg tablet 40 mg PO DAILY #7 tabs 08/10/22 08/10/22 Rx Exam Narrative Exam Narrative: GEN: Alert and oriented, pleasant and cooperative, gives linear history. No acute distress at rest. HEENT: Head atraumatic. Conjunctiva clear, no icterus. PEERL, EOMI. no rhinorrhea. MMM, OP benign. Neck is supple with no masses or lymphadenopathy, trachea midline LUNGS: Rales in bases bilaterallly with diffuse wheezes on insp/exp. Normal effort CV: RRR with no murmurs, gallops, or rubs. ABD: +BS, soft, NT/ND EXT: no cyanosis, clubbing. 1+ ankle/marsh edema right, 2+ left. Legs not tender MSK: No joint redness or swelling NEURO: CN 2-12 grossly intact. Normal movement of 4 extremities. Normal speech and coordination SKIN: No rashs or open wounds. PSYCH: normal mood and affect Results Imaging Chest x-ray: report reviewed (CHF) CT scan - chest: report reviewed (1. Moderate appearing CHF with details as above. 2. No pulmonary emboli are seen) EKG: report reviewed and image reviewed (no ischemic ST changes) Labs Result diagrams: 08/10/22 20:40 08/10/22 20:40 Labs: Laboratory Results - last 24 hr 08/10/22 08/10/22 08/10/22 20:16 20:40 20:40 WBC 10.54 RBC 4.74 Hgb 7.4 L Hct 29.1 L MCV 61 L MCH 15.6 L MCHC 25.4 L RDW 21.3 H Plt Count 271 MPV 9.8 Immature Gran % 0.6 Neutrophils % 75.5 Lymphocytes % 13.3 Monocytes % 6.7 Eosinophils % 3.2 Basophils % 0.7 Nucleated RBC % 0.2 Absolute Neutrophils 7.96 H Absolute Lymphocytes 1.40 Absolute Monocytes 0.71 Absolute Eosinophils 0.34 Absolute Basophils 0.07 RBC Morphology See Below Poikilocytosis 2+ Anisocytosis 3+ Microcytosis 3+ Ovalocytes 3+ PT INR APTT Sodium 136 Potassium 3.7 Chloride 100 Carbon Dioxide 29.3 Anion Gap 6.7 BUN 13 Creatinine 1.0 Est GFR (CKD-EPI 2020) 77.52 Glucose 183 H Calcium 8.7 Magnesium 1.7 L Total Bilirubin 0.5 AST 15 ALT 20 Alkaline Phosphatase 109 Troponin I 93 H* NT-Pro-B Natriuret Pep 1329 H Total Protein 7.4 Albumin 3.4 Urine Color Urine Clarity Urine pH Ur Specific [place] Urine Protein Urine Ketones Urine Blood Urine Nitrite Urine Bilirubin Urine Urobilinogen Ur Leukocyte Esterase Urine RBC Urine WBC Ur Epithelial Cells Urine Crystals Urine Bacteria Urine Casts Urine Mucus Ur Culture Indicated? Urine Glucose COVID-19 Source Cancelled SARS-CoV-2 (PCR) Cancelled Influenza Type A (PCR) Influenza Type B (PCR) RSV (PCR) Patient ABO/Rh Antibody Screen 08/10/22 08/10/22 08/10/22 20:40 20:40 20:49 WBC RBC Hgb Hct MCV MCH MCHC RDW Plt Count MPV Immature Gran % Neutrophils % Lymphocytes % Monocytes % Eosinophils % Basophils % Nucleated RBC % Absolute Neutrophils Absolute Lymphocytes Absolute Monocytes Absolute Eosinophils Absolute Basophils RBC Morphology Poikilocytosis Anisocytosis Microcytosis Ovalocytes PT 11.0 INR 1.1 APTT 25.4 Sodium Potassium Chloride Carbon Dioxide Anion Gap BUN Creatinine Est GFR (CKD-EPI 2020) Glucose Calcium Magnesium Total Bilirubin AST ALT Alkaline Phosphatase Troponin I NT-Pro-B Natriuret Pep Total Protein Albumin Urine Color Yellow Urine Clarity Clear Urine pH 6.5 Ur Specific [place] 1.020 Urine Protein Negative Urine Ketones Negative Urine Blood Negative Urine Nitrite Negative Urine Bilirubin Negative Urine Urobilinogen 0.2 Ur Leukocyte Esterase Trace H Urine RBC 0-2 Urine WBC 3-5 Ur Epithelial Cells Rare Urine Crystals Negative Urine Bacteria Negative Urine Casts 0-2 Hyaline Urine Mucus Negative Ur Culture Indicated? Yes Urine Glucose Negative COVID-19 Source SARS-CoV-2 (PCR) Influenza Type A (PCR) Influenza Type B (PCR) RSV (PCR) Patient ABO/Rh B Positive Antibody Screen NEGATIVE 08/10/22 08/10/22 21:01 23:12 WBC RBC Hgb Hct MCV MCH MCHC RDW Plt Count MPV Immature Gran % Neutrophils % Lymphocytes % Monocytes % Eosinophils % Basophils % Nucleated RBC % Absolute Neutrophils Absolute Lymphocytes Absolute Monocytes Absolute Eosinophils Absolute Basophils RBC Morphology Poikilocytosis Anisocytosis Microcytosis Ovalocytes PT INR APTT Sodium Potassium Chloride Carbon Dioxide Anion Gap BUN Creatinine Est GFR (CKD-EPI 2020) Glucose Calcium Magnesium Total Bilirubin AST ALT Alkaline Phosphatase Troponin I 98 H* NT-Pro-B Natriuret Pep Total Protein Albumin Urine Color Urine Clarity Urine pH Ur Specific [place] Urine Protein Urine Ketones Urine Blood Urine Nitrite Urine Bilirubin Urine Urobilinogen Ur Leukocyte Esterase Urine RBC Urine WBC Ur Epithelial Cells Urine Crystals Urine Bacteria Urine Casts Urine Mucus Ur Culture Indicated? Urine Glucose COVID-19 Source Nasopharynx SARS-CoV-2 (PCR) Negative Influenza Type A (PCR) Negative Influenza Type B (PCR) Negative RSV (PCR) Negative Patient ABO/Rh Antibody Screen Last Vital Signs Temp 36.7 C 08/10/22 23:18 Pulse 88 08/10/22 23:43 Resp 18 08/10/22 23:52 BP 135/72 08/10/22 23:43 Pulse Ox 94 08/10/22 23:52
[2022-08-11] MEDS: Nicotine 4 MG GUM BC (01:00)
[2022-08-11] MEDS: Normal Saline Flush 10 ML SYR IVP ×5 (01:40→20:37)
[2022-08-11] MEDS: MAGNESIUM SULFATE 1 GM/100 ML BAG IVPB (01:40)
[2022-08-11 06:40] LABS: HCT 27.4 % (40.0-50.0); MCH 15.6 pg (27.0-33.0); MCHC 25.5 % (32.0-36.0); RDW-SD 45.1 fL; WBC 9.49 10^3/uL (4.4-10.8)
[2022-08-11 07:01] LABS: Ferritin 13 ng/mL (26-388); Magnesium 2.1 mg/dL (1.8-2.4)
[2022-08-11 07:12] LABS: Troponin I 102 ng/L (<or=60)
[2022-08-11 07:20] LABS: Platelet Count 237 10^3/uL (130-400)
[2022-08-11 07:22] LABS: MCV 61 fL (80-95); RDW 21.3 % (11.8-14.1)
[2022-08-11 07:26] LABS: Iron 11 ug/dL (65-175); Total Iron Binding Capacity 427 ug/dL (250-450); Transferrin Sat 3 % (20-55)
[2022-08-11 07:43] LABS: Hemoglobin A1C 7.2 % (<5.7)
[2022-08-11 08:07] LABS: Lab Add On Test COMPLETE
--- NOTE | 2022-08-11 08:36 | DI.US_ITS ---
APPROVED REPORT EXAM: Comprehensive 2D, Doppler, and color-flow Echocardiogram Patient Location: In-Patient Room/Bed: [facility] Senior Data Warehouse Architect: Daysi Berry RDCS (AE) Indications: New chf, Elevated troponin, HTN, SMoker Other Information Study Quality: Adequate. Technically limited study due to body habitus, inability to position patient exam done supind bedside icu. Conclusion Mildly dilated left ventricle. Normal left ventricular wall thickness. Estimated ejection fraction is 40 to 45%. There are wall motion abnormalities involving the inferior posterior and posterolatera l segments Mildly dilated right ventricle with grossly normal systolic function Both atria are mildly dilated Aortic valve is calcified without stenosis or regurgitation Mildly thickened mitral leaflets with moderate regurgitation Normal tricuspid valve with mild regurgitation. Estimated right ventricular systolic pressure is 43 mmHg Wall motion Left Ventricle Left ventricle is mildly dilated. Left ventricular systolic function is moderately decreased. There i s normal left ventricular wall thickness. Regional wall motion abnormalities are noted. Inferior post erior posterolateral hypokinesis There is no ventricular septal defect visualized. LVEF is 40-45%.. Right Ventricle Right ventricle is mildly dilated. Right ventricular systolic function is grossly normal. The RVSP is 42.6mmHg. Atria Left atrium is mildly dilated. Right atrium is mildly dilated. The interatrial septum is intact with no evidence for an atrial septal defect. Aortic Valve Aortic valve is calcified. Aortic valve is trileaflet. There is no aortic valvular stenosis. No aorti c regurgitation is present. Mitral Valve Mitral valve leaflets are mildly thickened. No evidence of mitral valve stenosis. Moderate mitral reg urgitation. Tricuspid Valve The tricuspid valve is normal in structure. There is no tricuspid valve stenosis. Mild tricuspid regu rgitation. Pulmonic Valve The pulmonary valve is normal in structure. There is no pulmonic valvular stenosis. There is no pulmo shirley valvular regurgitation. Great Vessels The aortic root is normal in size. Ascending aorta is not well visualized. Aortic arch is not well vi sualized. IVC is normal in size and collapses >50% with inspiration. Pericardium There is no pericardial effusion. 2D Dimensions IVSD d PLAX 1.13 cm M: 0.6-1.2 LV Vol A2C d MOD 264.4 mL LVPW d PLAX 1.15 cm M: 0.6 - 1.2 LV Vol A4C d MOD 199.1 mL LVID d PLAX 6.05 cm M: 4.2 - 5.8 LA vol/ BSA A2C s A-L 34.1 mL/m2 LVDs 4.90 cm M: 2.5 - 4.0 LA vol/ BSA A4C s A-L 54.2 mL/m2 Ao Root d 3.08 cm M: 3.1 - 3.7 LA Vol/ BSA Biplane s A-L 45.3 mL/m2 RA Area A4C 24.47 cm2 LA Area A4C s MOD 29.58 cm2 RA Vol/ BSA A4C s A-L 42.7 mL/m2 LA Area A2C s MOD 22.28 cm2 LV EF Teichholz 37.5 % LV EF A4C MOD 35.9 % LVEF (Florez's) 37.52 % M: 52 - 72 LV EF A2C MOD 40.5 % LV Volume 174.57 mL M: 62 - 150 LV EF Biplane MOD 37.5 % LV Volume Index 81.19 mL/m2 M: 34 - 74 SV 89.45 mL LV Vol Biplane MOD 238.4 mL SV Index 41.55 mL/m2 FS 18.40 % M-Mode TAPSE 1.92 cm (M/F) >1.7 LV Diastology MV E' medial 0.092 (>0.07 m/s) E/A Ratio 1.5 LV E/e MED 13.35 (<14) MV E Vmax 1.23 (0.4-1.3 m/s) MV E' lateral 0.143 (>0.1 m/s) MV A Vmax 0.80 (0.4-1.3 m/s) LV E/e LAT 8.55 (<14) MV E/A Ratio 1.49 MV E/E' medial 13.39 MV E/E' lateral 8.58 Aortic Valve LVOT Area 3.70 cm2 AoV Area Vmax 2.90 cm2 LVOT Vmax 1.31 m/s AoV Area/ BSA (Vmax) 1.35 cm2/m2 LVOT Mean Fernando. 0.87 m/s JUAN MANUEL Mean Fernando. 3.08 cm2 LVOT Peak Grad 6.8 mmHg JUAN MANUEL Mean Fernando. Index 1.43 cm2/m2 LVOT Mean Grad 3.5 mmHg LVOT VTI 0.254 m LVOT Diam s 2.15 cm AoV Vmax 1.66 m/s Velocity Ratio 0.78 AoV Mean Fernando. 1.05 m/s AoV Peak Grad 11.1 mmHg LVOT SV 93.75 mL AoV Mean Grad 5.2 mmHg AoV VTI 0.243 m AoV Area VTI 3.85 cm2 AoV Area/ BSA (VTI) 1.79 cm/m2 Mitral Valve MV DT 182 (160-240 msec) MR Vmax 4.82 m/s MV PHT 53 msec MR VTI 1.514 m MV Area PHT 4.16 cm2 MR Peak Grad 92.8 mmHg MV VTI 0.356 m MR Mean Grad 68.1 mmHg MV VTI Annulus 0.366 m MR PISA Radius 0.64 cm MV Area VTI 2.71 (4.0-6.0 cm2) MR EROA 0.19 cm2 MR Aliasing Velocity 0.35 m/s MR PISA 2.56 cm2 Pulmonary Valve PV Vmax 1.12 (0.5-1.5 m/s) RVOT Peak Gr. 3.27 mmHg PV Peak Grad 5.0 mmHg RVOT Mean Gr. 1.50 mmHg PV Mean Grad 2.8 mmHg RVOT VTI 0.147 m PV VTI 0.236 m RVOT Vmax 0.90 m/s Tricuspid Valve TR Peak Grad 39.5 mmHg TR Vmax 3.15 m/s RA Pressure 3.00 mmHg RVSP (TR) 42.6 mmHg
[2022-08-11 08:58] LABS: Folate 19.5 ng/mL (8.6-20.0); Vitamin B12 1172 pg/mL (193-986)
--- NOTE | 2022-08-11 09:05 | PDOC.CMIN ---
- If Service Date Differs Date of service: 08/11/22 Time of Service: 09:05 Care Management Initial Assess REASON FOR HOSPITALIZATION:: CHF PAST MEDICAL HISTORY/PAST SURGICAL HISTORY:: All Active Problems (Updated 08/11/22 @ 01:24 by Anthony Jean). Hyperglycemia (Acute). Discharge planning issues (Acute). DVT prophylaxis (Acute). Elevated troponin (Acute). CHF (congestive heart failure) (Chronic). Anemia (Chronic). CHF (congestive heart failure) (Chronic). Adventitious breath sounds (Acute). Shortness of breath (Acute). Degenerative joint disease of right hip (Acute). Claudication (Acute). Hip pain, right (Acute). Primary adenocarcinoma of distal third of esophagus (Acute). Hypertension (Chronic). Medical History . Lin's esophagus. GERD. Hypertension. Hypertriglyceridemia. Rosacea. Smoker. TUBULAR ADENOMA. TUBULOVILLOUS ADENOMA OF RECTUM. Surgical History . Appendectomy (~1994). Cholecystectomy (~2010) PREVIOUS FUNCTIONAL STATUS/SOCIAL/FAMILY SUPPORTS:: Juan lives in a single family home in [facility] with his Kelsey. They have 2 sons and 5 grandchildren, all of whom live in the area. Juan and Kelsey describe their family ans close and supportive. 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 CURRENT FUNCTIONAL STATUS:: Juan was sitting up in bed visiting with his Kelsey when CM met with him. He was open and friendly and exhibited a good sense of humor during the conversation. Juan has not completed advanced directives and a discussion ensued about the importance of having his wishes clearly documented. Kelsey stated that she has them but is not sure if they are on file. CM offered to assist Juan and Kelsey with their Advanced Directives, with both completing and filing them. ADVANCE DIRECTIVES:: none on file Has patient been provided with info about the portal/API?: Yes Did the patient sign up for the portal?: No CODE STATUS:: Full Code INSURANCE COVERAGE / FINANCIAL ISSUES:: [employer] Medicare replascement CURRENT HOME/COMMUNITY SERVICES/EQUIPMENT:: none PRIMARY CARE PHYSICIAN:: Jose Sesay POTENTIAL DISCHARGE NEEDS:: follow up with community providers and plan of care PATIENT/FAMILY EDUCATION NEEDS:: Review of discharge instructions, follow up plan, activity, limitations, diet, medications amd Ask Me Three TRANSPORTATION:: via private vehicle with family PLAN:: Juan will likley discharge home with no new services. He will follow up with community providers and plan of care and transport with family. CM will continue to provide support to Juan and his discharge planning needs.
[2022-08-11] MEDS: IRON SUCROSE COMPLEX 200 MG in Normal Saline 100 ML 400 MG IVPB (09:21)
[2022-08-11] MEDS: Omeprazole 20 MG CAPCR 40 MG PO ×2 (09:21→20:13)
[2022-08-11] MEDS: Aspirin 81 MG CHEW PO (09:22)
[2022-08-11] MEDS: Multivitamin w/Minerals TAB 1 TAB PO (09:22)
[2022-08-11 10:34] LABS: Troponin I 89 ng/L (<or=60)
--- NOTE | 2022-08-11 12:59 | NUR.NOTE ---
Telepharmacy called at [phone], voice message left as per request with patient information for med. rec.: name, LALO, MR #. This RN's name and ICU phone number also communicated to telepharmacy
[2022-08-11 14:11] LABS: HCT 27.1 % (40.0-50.0)
[2022-08-11 14:14] LABS: HGB 6.9 g/dL (13.5-17.5)
--- NOTE | 2022-08-11 14:21 | TELEP.MEDREC ---
Date of service: 08/11/22 Time of Service: 14:21 Telepharmacy Home Med Rec Allergies Allergies: No Known Allergies Allergy (Verified 08/10/22 13:18) Interview Person Interviewed: Patient Quality Quality of Interview/Accuracy of Medication List: Fair Changes made to Home Medication List: ADDITIONS: none DELETIONS: kealisha completed course Additional Notes Additional Notes: none Recommended Changes Recommended Changes(reason for recommendation): none Attestation: The home medication list is now updated to the best of my knowledge and is ready to be reconciled by the provider. Please contact the TelePhaacy Medication Reconciliation Pharmacist at for any questions.
--- NOTE | 2022-08-11 14:42 | W.PM.PROGNOT ---
Date of Service Date of service: 08/11/22 Time of Service: 14:42 Subjective Subjective Interval history since last seen: Mr Arevalo states that he is feeling a little better. He still has a dry cough. No BM yet - not able to check repeat hemoccult. His last H/H is 6.9/27.1. Agrees to blood transfusion. His echo shows LVEF of 40-45% with wall motion abnormalities. We discussed how, once he is transfused and his volume status is managed, he would benefit from having a stress test. He also appears to have elevated RVSP of 43 mmHg, which could be exaggerated due to his current fluid overload. A sleep study could be considered in the future. We will continue diuretics. His troponins did turn around. I suspect he has a type 2 NSTEMI, but because of the wall motion abnormalities on the echo, MPI stress test is indicated. This could be done as outpatient. Objective Last Vital Signs Temp 36.6 C 08/11/22 14:23 Pulse 82 08/11/22 14:21 Resp 18 08/11/22 14:21 BP 129/67 08/11/22 14:21 Pulse Ox 96 08/11/22 14:21 Laboratory Results - last 24 hr 08/10/22 08/10/22 08/10/22 20:16 20:40 20:40 WBC 10.54 RBC 4.74 Hgb 7.4 L Hct 29.1 L MCV 61 L MCH 15.6 L MCHC 25.4 L RDW 21.3 H Plt Count 271 MPV 9.8 Immature Gran % 0.6 Neutrophils % 75.5 Lymphocytes % 13.3 Monocytes % 6.7 Eosinophils % 3.2 Basophils % 0.7 Nucleated RBC % 0.2 Absolute Neutrophils 7.96 H Absolute Lymphocytes 1.40 Absolute Monocytes 0.71 Absolute Eosinophils 0.34 Absolute Basophils 0.07 RBC Morphology See Below Poikilocytosis 2+ Anisocytosis 3+ Microcytosis 3+ Ovalocytes 3+ PT INR APTT Sodium 136 Potassium 3.7 Chloride 100 Carbon Dioxide 29.3 Anion Gap 6.7 BUN 13 Creatinine 1.0 Est GFR (CKD-EPI 2020) 77.52 Glucose 183 H Hemoglobin A1c Calcium 8.7 Magnesium 1.7 L Iron TIBC Transferrin % Sat Ferritin Total Bilirubin 0.5 AST 15 ALT 20 Alkaline Phosphatase 109 Troponin I 93 H* NT-Pro-B Natriuret Pep 1329 H Total Protein 7.4 Albumin 3.4 Vitamin B12 Folate Urine Color Urine Clarity Urine pH Ur Specific [place] Urine Protein Urine Ketones Urine Blood Urine Nitrite Urine Bilirubin Urine Urobilinogen Ur Leukocyte Esterase Urine RBC Urine WBC Ur Epithelial Cells Urine Crystals Urine Bacteria Urine Casts Urine Mucus Ur Culture Indicated? Urine Glucose COVID-19 Source Cancelled SARS-CoV-2 (PCR) Cancelled Influenza Type A (PCR) Influenza Type B (PCR) RSV (PCR) Add-On Test Request Patient ABO/Rh Antibody Screen Crossmatch 08/10/22 08/10/22 08/10/22 20:40 20:40 20:49 WBC RBC Hgb Hct MCV MCH MCHC RDW Plt Count MPV Immature Gran % Neutrophils % Lymphocytes % Monocytes % Eosinophils % Basophils % Nucleated RBC % Absolute Neutrophils Absolute Lymphocytes Absolute Monocytes Absolute Eosinophils Absolute Basophils RBC Morphology Poikilocytosis Anisocytosis Microcytosis Ovalocytes PT 11.0 INR 1.1 APTT 25.4 Sodium Potassium Chloride Carbon Dioxide Anion Gap BUN Creatinine Est GFR (CKD-EPI 2020) Glucose Hemoglobin A1c Calcium Magnesium Iron TIBC Transferrin % Sat Ferritin Total Bilirubin AST ALT Alkaline Phosphatase Troponin I NT-Pro-B Natriuret Pep Total Protein Albumin Vitamin B12 Folate Urine Color Yellow Urine Clarity Clear Urine pH 6.5 Ur Specific [place] 1.020 Urine Protein Negative Urine Ketones Negative Urine Blood Negative Urine Nitrite Negative Urine Bilirubin Negative Urine Urobilinogen 0.2 Ur Leukocyte Esterase Trace H Urine RBC 0-2 Urine WBC 3-5 Ur Epithelial Cells Rare Urine Crystals Negative Urine Bacteria Negative Urine Casts 0-2 Hyaline Urine Mucus Negative Ur Culture Indicated? Yes Urine Glucose Negative COVID-19 Source SARS-CoV-2 (PCR) Influenza Type A (PCR) Influenza Type B (PCR) RSV (PCR) Add-On Test Request Patient ABO/Rh B Positive Antibody Screen NEGATIVE Crossmatch See Detail 08/10/22 08/10/22 08/11/22 21:01 23:12 05:20 WBC RBC Hgb Hct MCV MCH MCHC RDW Plt Count MPV Immature Gran % Neutrophils % Lymphocytes % Monocytes % Eosinophils % Basophils % Nucleated RBC % Absolute Neutrophils Absolute Lymphocytes Absolute Monocytes Absolute Eosinophils Absolute Basophils RBC Morphology Poikilocytosis Anisocytosis Microcytosis Ovalocytes PT INR APTT Sodium Potassium Chloride Carbon Dioxide Anion Gap BUN Creatinine Est GFR (CKD-EPI 2020) Glucose Hemoglobin A1c Calcium Magnesium Iron 11 L TIBC 427 Transferrin % Sat 3 L Ferritin Total Bilirubin AST ALT Alkaline Phosphatase Troponin I 98 H* NT-Pro-B Natriuret Pep Total Protein Albumin Vitamin B12 Folate Urine Color Urine Clarity Urine pH Ur Specific [place] Urine Protein Urine Ketones Urine Blood Urine Nitrite Urine Bilirubin Urine Urobilinogen Ur Leukocyte Esterase Urine RBC Urine WBC Ur Epithelial Cells Urine Crystals Urine Bacteria Urine Casts Urine Mucus Ur Culture Indicated? Urine Glucose COVID-19 Source Nasopharynx SARS-CoV-2 (PCR) Negative Influenza Type A (PCR) Negative Influenza Type B (PCR) Negative RSV (PCR) Negative Add-On Test Request Patient ABO/Rh Antibody Screen Crossmatch 08/11/22 08/11/22 08/11/22 05:20 05:20 05:20 WBC 9.49 RBC 4.50 Hgb 7.0 L* Hct 27.4 L MCV 61 L MCH 15.6 L MCHC 25.5 L RDW 21.3 H Plt Count 237 MPV Immature Gran % Neutrophils % Lymphocytes % Monocytes % Eosinophils % Basophils % Nucleated RBC % Absolute Neutrophils Absolute Lymphocytes Absolute Monocytes Absolute Eosinophils Absolute Basophils RBC Morphology Poikilocytosis Anisocytosis Microcytosis Ovalocytes PT INR APTT Sodium Potassium Chloride Carbon Dioxide Anion Gap BUN Creatinine Est GFR (CKD-EPI 2020) Glucose Hemoglobin A1c 7.2 H Calcium Magnesium 2.1 Iron TIBC Transferrin % Sat Ferritin 13 L Total Bilirubin AST ALT Alkaline Phosphatase Troponin I 102 H* NT-Pro-B Natriuret Pep Total Protein Albumin Vitamin B12 1172 H Folate 19.5 Urine Color Urine Clarity Urine pH Ur Specific [place] Urine Protein Urine Ketones Urine Blood Urine Nitrite Urine Bilirubin Urine Urobilinogen Ur Leukocyte Esterase Urine RBC Urine WBC Ur Epithelial Cells Urine Crystals Urine Bacteria Urine Casts Urine Mucus Ur Culture Indicated? Urine Glucose COVID-19 Source SARS-CoV-2 (PCR) Influenza Type A (PCR) Influenza Type B (PCR) RSV (PCR) Add-On Test Request Patient ABO/Rh Antibody Screen Crossmatch 08/11/22 08/11/22 08/11/22 08:05 09:55 14:05 WBC RBC Hgb 6.9 L* Hct 27.1 L MCV MCH MCHC RDW Plt Count MPV Immature Gran % Neutrophils % Lymphocytes % Monocytes % Eosinophils % Basophils % Nucleated RBC % Absolute Neutrophils Absolute Lymphocytes Absolute Monocytes Absolute Eosinophils Absolute Basophils RBC Morphology Poikilocytosis Anisocytosis Microcytosis Ovalocytes PT INR APTT Sodium Potassium Chloride Carbon Dioxide Anion Gap BUN Creatinine Est GFR (CKD-EPI 2020) Glucose Hemoglobin A1c Calcium Magnesium Iron TIBC Transferrin % Sat Ferritin Total Bilirubin AST ALT Alkaline Phosphatase Troponin I 89 H* NT-Pro-B Natriuret Pep Total Protein Albumin Vitamin B12 Folate Urine Color Urine Clarity Urine pH Ur Specific [place] Urine Protein Urine Ketones Urine Blood Urine Nitrite Urine Bilirubin Urine Urobilinogen Ur Leukocyte Esterase Urine RBC Urine WBC Ur Epithelial Cells Urine Crystals Urine Bacteria Urine Casts Urine Mucus Ur Culture Indicated? Urine Glucose COVID-19 Source SARS-CoV-2 (PCR) Influenza Type A (PCR) Influenza Type B (PCR) RSV (PCR) Add-On Test Request COMPLETE Patient ABO/Rh Antibody Screen Crossmatch
[2022-08-11] MEDS: Furosemide 40 MG/4 ML VIAL IVP (15:37)
[2022-08-11] MEDS: Docusate Sodium 100 MG CAP PO ×2 (15:37→20:13)
[2022-08-11] MEDS: Acetaminophen 325 MG TAB 650 MG PO (15:37)
[2022-08-11] MEDS: Atorvastatin 40 MG TAB 80 MG PO (20:12)
[2022-08-11] MEDS: Furosemide 20 MG/2 ML VIAL IVP (20:37)
[2022-08-12] VITALS (24 sets, daily range): BP systolic 122–132; BP diastolic 60–71; PULSE 72–91; RESP 13–25; TEMP 36.7–37.4; O2SAT 93–97
[2022-08-12 05:43] LABS: Abs Immature Grans 0.06 10^3/uL (0.0-0.06); Absolute Basophil Count 0.08 10^3/uL (0.0-0.2); Absolute Eosinophil Count 0.36 10^3/uL (0.0-0.7); Absolute Lymphocyte Count 2.15 10^3/uL (1.2-3.4); Absolute Monocyte Count 0.79 10^3/uL (0.1-0.8); Absolute Neutrophil Count 7.13 10^3/uL (1.2-6.7); Basophils % 0.8; Eosinophils % 3.4; HCT 30.5 % (40.0-50.0); HGB 8.1 g/dL (13.5-17.5); Immature Grans % 0.6; Lymphocytes % 20.3; MCH 16.6 pg (27.0-33.0); MCHC 26.6 % (32.0-36.0); MCV 63 fL (80-95); Monocytes % 7.5; Neutrophils % 67.4; Nucleated RBC 0.4 % (0.0-0.3); Platelet Count 252 10^3/uL (130-400); RBC 4.87 10^6/uL (4.36-5.78); RDW 23.5 % (11.8-14.1); RDW-SD 50.8 fL; WBC 10.57 10^3/uL (4.4-10.8)
[2022-08-12 05:56] LABS: Anion Gap 9.4 mmol/L (3-11); BUN 16 mg/dL (7-18); CO2 28.6 mmol/L (21.0-32.0); CREATININE 0.8 mg/dL (0.70-1.30); Calcium 8.5 mg/dL (8.5-10.1); Chloride 102 mmol/L (98-107); Estimated GFR 91.15 (mL/min/1.73m2); Glucose 134 mg/dL (74-106); Magnesium 1.8 mg/dL (1.8-2.4); Potassium 3.7 mmol/L (3.5-5.1); Sodium 140 mmol/L (136-145)
[2022-08-12 06:23] LABS: Anisocytosis 3+
[2022-08-12 06:24] LABS: Hypochromasia 2+; Microcytosis 3+
[2022-08-12 06:25] LABS: Poikilocytes 2+
[2022-08-12] MEDS: IRON SUCROSE COMPLEX 300 MG in Normal Saline 250 ML 167 MG IVPB (08:21)
[2022-08-12] MEDS: Furosemide 40 MG/4 ML VIAL IVP (08:21)
[2022-08-12] MEDS: Aspirin 81 MG CHEW PO (08:21)
[2022-08-12] MEDS: Docusate Sodium 100 MG CAP PO ×2 (08:21→19:30)
[2022-08-12] MEDS: Omeprazole 20 MG CAPCR 40 MG PO ×2 (08:22→19:30)
[2022-08-12] MEDS: Multivitamin w/Minerals TAB 1 TAB PO (08:22)
[2022-08-12] MEDS: Normal Saline Flush 10 ML SYR IVP (10:56)
--- NOTE | 2022-08-12 13:34 | NUR.NOTE ---
Patient sleeps for a couple of hours between 10:30 a.m. to 12:00.Nursing Note:
--- NOTE | 2022-08-12 13:35 | W.PM.PROGNOT ---
Date of Service Date of service: 08/12/22 Time of Service: 13:35 Assessment and Plan Assessment and plan (1) CHF (congestive heart failure): Status: Chronic Assessment and plan: Exam, BNaP, and images c/w CHF, which is new for the patient. Stress of anemia likely part of cause. Cardiac ischemia also a concern with troponin bump. He responded well to IV lasix. Negative fluid balance of 4L. Change back to his home dose of 40mg daily. Echocardiogram ordered, adjust medical regimen base on these results (2) Elevated troponin: Status: Acute Assessment and plan: This is concerning butwith no chest pain or ischemic EKG changes this is not ACS. Cont aspirin and statin even though his LDL was <100 off meds in June. Consider stress test to assess for ischemia if echo suggestive (3) Anemia: Status: Chronic Assessment and plan: Stable from morning to evening today. Guiac negative x2. Still most likely GI losses but this suggests subacute. Fe low at 11. Given Venofer 200mg IV on 08/11. Give Venofer 300mg IV today. (4) Hypertension: Status: Chronic Assessment and plan: BP okay on amldopine, but I am holding this, consider meds with cardiac benefit after we get the echo back. (5) Smoker: Assessment and plan: He is motivated to quit, has quit for years before. He has NRT gum, plan to use this. 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 Either way, he will need EGD/colo non-emergntly. (7) Hyperglycemia: Status: Acute Assessment and plan: Fasting glucose 10/25 c/w type 2 DM. A1c 7.2. DM diet. Discuss with patient. (8) DVT prophylaxis: Status: Acute Assessment and plan: TEDS/SCDs given severe anemia presumed to be blood loss (9) Discharge planning issues: Status: Acute Assessment and plan: Stable as med/surg boarder on ICU. Full code. Subjective Subjective Patient reports: no new complaints, feels better, bowel movement and afebrile; denies nausea, vomiting or shortness of breath Exam Narrative Exam Narrative: GEN: Alert and oriented, pleasant and cooperative, gives linear history. NAD LUNGS: Clear anterior breath sounds. NO increased WOB. Speaks in full sentences w/o SOA. CV: RRR with no murmurs. . ABD: +BS, soft, NT/ND EXT: 1+ ankle/marsh edema right, 2+ left. Legs not tender MSK: No joint redness or swelling NEURO: Normal movement of 4 extremities. Normal speech and coordination SKIN: No rashes/lesions PSYCH: normal mood and affect Objective Last Vital Signs Temp 36.9 C 08/12/22 07:44 Pulse 80 08/12/22 07:44 Resp 16 08/12/22 07:44 BP 127/66 08/12/22 07:44 Pulse Ox 97 08/12/22 07:44 Laboratory Results - last 24 hr 08/10/22 08/11/22 08/12/22 20:40 14:05 05:12 WBC RBC Hgb 6.9 L* Hct 27.1 L MCV MCH MCHC RDW Plt Count MPV Immature Gran % Neutrophils % Lymphocytes % Monocytes % Eosinophils % Basophils % Nucleated RBC % Absolute Neutrophils Absolute Lymphocytes Absolute Monocytes Absolute Eosinophils Absolute Basophils Hypochromasia Poikilocytosis Anisocytosis Microcytosis Sodium 140 Potassium 3.7 Chloride 102 Carbon Dioxide 28.6 Anion Gap 9.4 BUN 16 Creatinine 0.8 Est GFR (CKD-EPI 2020) 91.15 Glucose 134 H Calcium 8.5 Magnesium 1.8 Patient ABO/Rh B Positive Antibody Screen NEGATIVE Crossmatch See Detail 08/12/22 05:12 WBC 10.57 RBC 4.87 Hgb 8.1 L Hct 30.5 L MCV 63 L MCH 16.6 L MCHC 26.6 L RDW 23.5 H Plt Count 252 MPV Immature Gran % 0.6 Neutrophils % 67.4 Lymphocytes % 20.3 Monocytes % 7.5 Eosinophils % 3.4 Basophils % 0.8 Nucleated RBC % 0.4 H Absolute Neutrophils 7.13 H Absolute Lymphocytes 2.15 Absolute Monocytes 0.79 Absolute Eosinophils 0.36 Absolute Basophils 0.08 Hypochromasia 2+ Poikilocytosis 2+ Anisocytosis 3+ Microcytosis 3+ Sodium Potassium Chloride Carbon Dioxide Anion Gap BUN Creatinine Est GFR (CKD-EPI 2020) Glucose Calcium Magnesium Patient ABO/Rh Antibody Screen Crossmatch
[2022-08-12] MEDS: Atorvastatin 40 MG TAB 80 MG PO (19:29)
[2022-08-13] VITALS (61 sets, daily range): BP systolic 113–121; BP diastolic 66–77; PULSE 77–90; RESP 12–30; TEMP 36.6–36.7; O2SAT 95–97
[2022-08-13] MEDS: Normal Saline Flush 10 ML SYR IVP (05:42)
[2022-08-13 06:06] LABS: HCT 31.9 % (40.0-50.0); HGB 8.4 g/dL (13.5-17.5)
[2022-08-13] MEDS: Aspirin 81 MG CHEW PO (07:54)
[2022-08-13] MEDS: Furosemide 40 MG TAB PO (07:54)
[2022-08-13] MEDS: Omeprazole 20 MG CAPCR 40 MG PO (07:55)
[2022-08-13] MEDS: Empaglifozin 10 MG TAB PO (07:55)
[2022-08-13] MEDS: Multivitamin w/Minerals TAB 1 TAB PO (07:55)
--- NOTE | 2022-08-13 09:52 | W.PM.DS.N ---
Date of service: 08/13/22 Time of Service: 09:53 DS: Diagnosis Discharge Diagnosis (1) CHF (congestive heart failure): Status: Chronic Asessment and Plan: New onset. Cardiac event vs secondary to anemia (iron deficiency d/t blood loss). Echocardiogram showed LVEF of 40-45% with wall motion abnormalities. He diuresed well with IV lasix. He was subsequently transition back to his home lasix dose of 40mg daily. He had an initial troponin of 93 with a peak of 102, then a decline to 89. A referral made for outpt MPI stress test. Jardiance 10mg, atorvastatin 80mg and aspirin 81mg initiated and will be continued. (2) Elevated troponin: Status: Acute Asessment and Plan: As above (3) Anemia: Status: Chronic Asessment and Plan: Subacute. He will contact his oncologist to discuss endoscopies. 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 An upper or lower slow/chronic GI blood loss could be the etiology. His hemoglobin matt was 6.9. He was transfused 1 unit pRBCs. He was administered a total of 500mg IV iron glucose (Venofer). Hemoglobin then stable at 8.1 > 8.4. (4) Hypertension: Status: Chronic Asessment and Plan: Continue amlodipine 5mg daily. (5) Smoker: Asessment and Plan: Encourage cessation and continue nicorette gum. (6) Primary adenocarcinoma of distal third of esophagus: Status: Acute Asessment and Plan: Contact oncologist for discussion of endoscopy, particularly urgent d/t finding of iron deficiency anemia that is likely from blood loss. (7) Hyperglycemia: Status: Acute Asessment and Plan: Newly dx'd DM2 with A1c of 7.2 Jardiance 10mg daily initiated (also for tx of CHF). This can be titrated upward by PCP if necessary. Low, consistent carbohydrate diet. (8) Pulmonary hypertension: Status: Acute Asessment and Plan: Echocardiogram indicated an RVSP of 43 mmHG. This could have been exagerated by fluid overload that has since resolved. He should discuss a sleep study with his PCP. Discharge Plan Disposition Patient Disposition: Home Condition: Good Discharge Details Reason For Visit: Chf, Anemia Admit Date/Time: 08/10/22 22:14 Admit Provider: Anthony Jean Attending Provider: Anthony Jean Primary Care Provider: Jose Sesay Hospital Course Hospital Course: 77 yo smoker with history of hypertension and history of Barretts esophagus and esophageal cancer, presented to his primary care this morning with shortness of breath.? Per PCP note he started feeling more SOB a month ago, but per patient states he felt much worse over the past 3 days.? He did also have cough and some body aches.? He was sent for a chest x-ray and labs and hemoglobin was 7.2 and was referred to the emergency room. ? He has had no chest pain or palpitations. He denied any GI bleeding or melena.? He has not had abdominal pain or heart burn.? He stated he was due for an endoscopy for his esophagus during and hasn't had it.? He has had no difficulty swallowing or weight loss.? He was drinking 1 1/2 glasses of Dewars and water a day at [facility], right before this started, doesn't drink alcohol at home.? He was being treated for claudication with cilostazol, but documentation of PAD was not found in his records. No current statin use.? Other notes referenced Barretts esophagus but adenocarcinoma of esophagus on his list, patient understands he had early cancer but is cured.? Also of note, he had fasting glucose of 140 on 07/04/22 but hasn't been given the formal diagnosis. His A1c was 7.2 See Diagnosis PCP follow up in 1 week. Patient to [place] [facility] [place] new dx of anemia and need for repeat endoscopies. Home Meds and New Rx's Prescriptions: New Jardiance 10 mg Tablet 10 mg PO QAM Qty: 30 0RF atorvastatin 80 mg tablet 80 mg PO DAILY Qty: 30 0RF Continued cilostazol 100 mg tablet 100 mg PO BID Qty: 60 5RF nicotine (polacrilex) [Nicorette] 4 mg gum 4 mg buccal Q1H Qty: 100 8RF aspirin [Aspirin Low-Strength] 81 MG tablet,chewable 1 tab PO DAILY amlodipine 5 mg tablet 5 mg PO DAILY Qty: 90 4RF omeprazole [Prilosec] 40 mg capsule,delayed release(DR/EC) 40 mg PO BID Qty: 90 Rx Instructions: 12/28/18 20 mg bid furosemide 40 mg tablet 40 mg PO DAILY Qty: 7 0RF One-A-Day Men VitaCraves 200 mcg Tablet,Chewable 1 tab PO DAILY Discharge Instructions Instructions: Type 2 Diabetes Management for Adults (DC) Activity:: Activity as Tolerated Equipment/Supplies:: No Equipment Needed Diet:: Low consistent carb diet Discharge Orders Other Ambulatory Orders: NM MPI rest & stress grp (Routine) Location: None Selected Ordered By: Ambrocio Barnes DS: Summary Time Spent with Patient providing and/or coordinating discharge services: Greater than 30 minutes Status at Discharge Functional status at discharge: independent ambulation Overall status at discharge: patient is progressing back to baseline Mental Status: mental status grossly normal Speech and Movement: speech and movement normal Mood: congruent mood Affect: normal affect Exam Narrative Exam Narrative: GEN: Alert and oriented, pleasant and cooperative. LUNGS: Clear anterior breath sounds. NO increased WOB. Speaks in full sentences w/o SOA. CV: RRR with no murmurs. . ABD: +BS, soft, NT/ND EXT: Tr bilateral pedal edema. No calf tenderness. MSK: No joint redness or swelling NEURO: Normal movement of 4 extremities. Normal speech and coordination SKIN: No rashes/lesions PSYCH: normal mood and affect Psych Mental Status: mental status grossly normal Speech and Movement: speech and movement normal Mood: congruent mood Affect: normal affect DS: Data Vitals/I&O Vitals and I&O: Vital Signs Temperature 36.6 C 08/13/22 08:12 Temperature Source Temporal Artery Scan 08/13/22 08:12 Pulse 78 08/13/22 08:13 Pulse Rhythm Regular 08/13/22 08:47 Pulse 81 08/13/22 08:03 Respiratory Rate 15 08/13/22 08:11 Respiratory Effort Non-Labored 08/13/22 08:47 Respiratory Depth Normal 08/13/22 08:47 Respiratory Pattern Normal 08/13/22 08:47 Blood Pressure 113/66 08/13/22 08:03 Blood Pressure Mean 77 08/13/22 08:03 Blood Pressure Position Supine 08/10/22 23:43 Pulse Oximetry 97 08/13/22 04:32 Oxygen Delivery Method Room Air 08/13/22 04:32 Oxygen Flow Rate 0 08/13/22 04:32 Pain Level 0 08/13/22 08:12 Intake & Output 08/12/22 08/12/22 08/13/22 11:59 23:59 11:59 Intake Total 565 / 1135 570 / 1135 90 / 90 Output Total 2150 / 2800 650 / 2800 300 / 300 Balance -1585 / -1665 -80 / -1665 -210 / -210 Weight 95.4 kg Intake: IV 265 / 265 Oral 300 / 870 570 / 870 90 / 90 Output: Urine 2150 / 2800 650 / 2800 300 / 300 Other: Urine Color Yellow Light Jacqueline Yellow Urine Appearance Clear Clear Clear Urine Odor None None None Comment Urine mixed with stool and toilet paper in commode. Estimated 100-200 ml. Stool Occult Blood Negative Negative Stool Size Moderate Moderate Stool Characteristics Soft Soft Formed Voiding Methods Urinal Urinal Urinal Data Completed and Pending Labs on day of discharge: Labs from last 24 hours 08/13/22 05:13 Hgb 8.4 L Hct 31.9 L PFSH All Active Problems (Updated 08/13/22 @ 10:27 by Ambrocio Barnes MD) Pulmonary hypertension (Acute) Hyperglycemia (Acute) Discharge planning issues (Acute) DVT prophylaxis (Acute) Elevated troponin (Acute) CHF (congestive heart failure) (Chronic) Anemia (Chronic) CHF (congestive heart failure) (Chronic) Adventitious breath sounds (Acute) Shortness of breath (Acute) Degenerative joint disease of right hip (Acute) Claudication (Acute) Hip pain, right (Acute) 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 Sister No problems noted. Brother No problems noted. Son No problems noted. Son No problems noted. Social History Smoking/Tobacco Use Status: Current every day Counseling given: counseling >3 minutes Smoking risk assessment performed?: Yes Alcohol Intake: current Drug use: Never Substance use type: does not use Do you feel safe at home: Yes Do you feel safe in your relationship?: Yes Additional Social history: Lives with on [address] outside of [facility]. 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 Likes to golf and grant
--- NOTE | 2022-08-13 16:33 | PDOC.CMDIS ---
- If Service Date Differs Date of service: 08/13/22 Time of Service: 16:33 LACE Index Scoring Tool - Questions: Length of Stay (in days): 3 Acuity (Admit via E.D.?): Yes Comorbidities: Congestive Heart Failure, Any Tumor E.D. Visits: 1 - Answers: Total Score: 12 Risk of Readmission: High Risk Care Management Discharge Reason for Hospitalization: CHF Discharge Plan: Juan will discharge home with no new services. He will follow up with community providers and plan of care and transport with family. Patient/Family Education Needs: Review of discharge instructions, follow up plan, activity, limitations, diet, medications amd Ask Me Three
== END 2022-08-13 11:54 | disposition home or self-care (01) | DRG 293 ==
LOC: ER 22:26 → ICU 23:20
PROVIDERS: Family Medicine; Internal Medicine; Admitting Provider Family Medicine; Emergency Provider Emergency Medicine; PCP Family Medicine; Visit Provider Family Medicine
DX: I11.0 Hypertensive heart disease with heart failure (principal); R74.8 Abnormal levels of other serum enzymes; I50.9 Heart failure, unspecified; R73.9 Hyperglycemia, unspecified; D50.0 Iron deficiency anemia secondary to blood loss (chronic); M16.11 Unilateral primary osteoarthritis, right hip; I73.9 Peripheral vascular disease, unspecified; K21.9 Gastro-esophageal reflux disease without esophagitis; E78.1 Pure hyperglyceridemia; F17.210 Nicotine dependence, cigarettes, uncomplicated; I27.20 Pulmonary hypertension, unspecified; K22.70 Barrett's esophagus without dysplasia; Z86.010 Personal history of colon polyps; Z85.01 Personal history of malignant neoplasm of esophagus
CPT/HCPCS: 36415; 71275; 80048; 80053; 85027; 86850; 86900; 86901; 86920; 87635; 87637; 93005; 93308; 96374; 99285; 81003; 81015; 82270; 82607; 82728; 82746; 83036; 83540; 83550; 83735; 83880; 84484; 85014; 85018; 85025; 85610; 85730; 87086; 93010; 93306; 99233; 99239; J1756; J1940; J1941; J3475; J3490; P9016

== ENCOUNTER 2022-08-17 00:41 | Outpatient (CLI) | payer MEDICARE, SELFPAY ==
--- NOTE | 2022-08-17 06:45 | DI.NM_ITS ---
APPROVED REPORT Exam: Pharmacologic Patient Location: Out-Patient Room/Bed: Stress Nurse: Rachel Adam RN Ordering Provider:ABDIEL DEJESUS, Contact Number: BMI: 29.28 Baseline Rhythm: Sinus Rhythm Medical History Medical History: HTN. Pulmonary HTN. CHF. DJD Right hip. Anemia. SOB. Hyperglycemia. Obesity. Tobacoo abuse. GERD. Lin's esophagus. Esophageal cancer. Cardiac Medications: Omeprazole. Nicotine gum. Furosemide. Jardiance. Atorvastatin. Aspirin. Amlodipi ne. Allergies: No known drug allergies Cardiac Risk Factors: Family hx. HTN. Smoker. Obesity. Previous Cardiac Procedures: None Pretest Chest Pain Characteristics: No chest pain Exercise History: Physically active Physical Disabilities: Hips Lung Sounds: Clear to auscultation Heart Sounds: Regular Stress Test Details Test: Pharmacologic stress was paired with low level exercise. Nuclear Acquisition: Rest Tc-99m/Stress Tc-99m 1 day Rest Isotope: Tc-99m Sestamibi. Dose: 10.1 Date: 08/17/2022 Injection Time: 0850 Stress Isotope: Tc-99m Sestamibi. Dose: 31.6 Date: 08/17/2022 Injection Time: 1000 HR Resting HR Supine: 80 bpm Max Heart Rate (APMHR): 143.269569 bpm Resting HR Standin bpm Target HR (85% APMHR): 121.904185 bpm Max HR Achieved: 119 bpm % of APMHR: 83.22 Recovery HR: 94 bpm HR response to stress: Normal HR response to stress BP Resting BP Supine: 128/68 mmHg Resting BP Standin/88 mmHg Max BP: 148/78 mmHg Recovery BP: 118/72 mmHg BP response to stress: Normal blood pressure response to stress. ECG Resting ECG: Sinus Rhythm, RBBB, LAFB, borderline prolonged QT interval Ectopy: PVCs Arrhythmia: Ventricular trigeminy pattern. Clinical Rate Pressure Product: [id number] Stress ECG Conclusion 1. Resting electrocardiogram showed right bundle branch block 2. Patient underwent testing using a combination of low-level exercise and pharmacologic stress with regadenoson 3. Peak heart rate achieved was 83% of predicted for age 4. Electrocardiographic portion of the test was nondiagnostic due to inadequate heart rate 5. See MPI report Stress Test Summary STAGE Time (mins) Speed (mph) Grade (%) HR BP SpO2 SYMPTOMS METS Supine 80 128/68 Standing 89 122/88 1 min post Lexiscan injection 112 148/78 3 min post Lexiscan injection 117 138/72 6 min post Lexiscan injection 101 122/80 9 min post Lexiscan injection 94 118/72 Pt attempted Salbador protocol without success due to significant cramping pains in his calf muscles and hip discomfort. Salbador protocol stopped and pt was transitioned to a walking Lexiscan on a flat [employer] ce with a speed of 1.1 mph. Pt was able to tolerate this walking Lexiscan and complete the test. Pt h ad no chest pain throughout testing. MPI Conclusion Myocardial perfusion shows no evidence of ischemia or prior infarction The LV is dilated, diffusely hypocontractile, EF 27% Radiologist Interpretation Radiologist Interpretation by: Ruy Short MD Interpretation Date/Time: 08/17/2022 16:43:40
[2022-08-17] MEDS: Regadenoson 0.4 MG/5 ML SYR IVP (11:12)
== END 2022-08-17 01:01 ==
LOC: DI 00:41
PROVIDERS: PCP Family Medicine; Visit Provider Family Medicine
DX: I50.9 Heart failure, unspecified (principal); R77.8 Other specified abnormalities of plasma proteins
CPT/HCPCS: 78452; 93016; 93018; 93017; J2785

== ENCOUNTER 2022-08-18 00:45 | Outpatient (CLI) | payer MEDICARE, SELFPAY ==
--- NOTE | 2022-08-18 07:30 | DI.US_ITS ---
Exam(s) US UPPER EXTREMITY VENOUS LT EXAM: US UPPER EXTREMITY VENOUS LT CLINICAL HISTORY: left arm swelling, recent IV r/o DVT, shortness of breath, R06.02. TECHNIQUE: Ultrasound examination of the left upper extremity venous system(s) is performed using gr ayscale, color-flow, and spectral Doppler analysis. COMPARISON: No exams were available for comparison FINDINGS: The left internal jugular, axillary, subclavian, basilic, brachial, and medial cubital veins are johnson nt without evidence of thrombosis. There is thrombus seen in the left cephalic vein measuring approx imately 15 cm in length. IMPRESSION: 1. No DVT. 2. Superficial thrombophlebitis with thrombus seen in the left cephalic vein. DATA REPOSITORY:
== END 2022-08-18 01:05 ==
LOC: DI 00:45
PROVIDERS: PCP Family Medicine; Visit Provider Physician Assistant
DX: I80.8 Phlebitis and thrombophlebitis of other sites (principal)
CPT/HCPCS: 93971

== ENCOUNTER 2023-03-27 08:09 | Outpatient (CLI) | payer OTHER, SELFPAY ==
--- NOTE | 2023-03-27 08:00 | RT.EKG_ITS ---
APPROVED REPORT Exam: Resting ECG Reason for Exam: SOB Patient Location: O HR:99 bpm ECG Measurements Heart Rate 99 AXIS NM 194 P -22 QRSd 138 QRS -54 QT 382 T 77 QTc 491 Conclusion Sinus rhythm...normal P axis, V-rate 50- 99 Right bundle branch block...QRSd>120, terminal axis(90,270) Left anterior fascicular block Artifact in lead(s) I,II,III,aVR,aVL,aVF
== END 2023-03-27 08:10 | disposition home or self-care (01) ==
LOC: DI.CARD 08:10
PROVIDERS: PCP Family Medicine; Visit Provider Internal Medicine Cardiovascular Disease
DX: I50.9 Heart failure, unspecified (principal); R06.02 Shortness of breath
CPT/HCPCS: 93010

== ENCOUNTER 2023-03-27 15:33 | Outpatient (CLI) | payer OTHER, SELFPAY ==
[2023-03-27 14:15] LABS: Abs Immature Grans 0.05 10^3/uL (0.0-0.06); Absolute Basophil Count 0.08 10^3/uL (0.0-0.2); Absolute Eosinophil Count 0.57 10^3/uL (0.0-0.7); Absolute Lymphocyte Count 1.75 10^3/uL (1.2-3.4); Absolute Monocyte Count 0.75 10^3/uL (0.1-0.8); Absolute Neutrophil Count 7.22 10^3/uL (1.2-6.7); Basophils % 0.8; Eosinophils % 5.5; HGB 8.3 g/dL (13.5-17.5); Immature Grans % 0.5; Lymphocytes % 16.8; MCH 15.8 pg (27.0-33.0); MCHC 25.2 % (32.0-36.0); MCV 63 fL (80-95); MPV 8.7 fL (8.0-11.0); Monocytes % 7.2; Neutrophils % 69.2; Platelet Count 336 10^3/uL (130-400); RBC 5.25 10^6/uL (4.36-5.78); RDW 21.2 % (11.8-14.1); RDW-SD 45.6 fL; WBC 10.42 10^3/uL (4.4-10.8)
[2023-03-27 14:42] LABS: Hemoglobin A1C 7.6 % (<5.7)
[2023-03-27 15:04] LABS: Anisocytosis 2+; Diff Comment RBC Morph Reviewed
[2023-03-27 15:05] LABS: Hypochromasia 2+; Microcytosis 1+; Poikilocytes 2+
[2023-03-27 15:51] LABS: Iron 16 ug/dL (65-175)
[2023-03-27 16:03] LABS: Anion Gap 10.9 mmol/L (3-11); BUN 14 mg/dL (7-18); CO2 27.1 mmol/L (21.0-32.0); Calcium 8.8 mg/dL (8.5-10.1); Chloride 103 mmol/L (98-107); Estimated GFR 77.04 (mL/min/1.73m2); Ferritin 4 ng/mL (26-388); Glucose 166 mg/dL (74-106); Potassium 4.2 mmol/L (3.5-5.1); Sodium 141 mmol/L (136-145)
== END 2023-03-27 15:34 | disposition home or self-care (01) ==
LOC: LBO 15:34
PROVIDERS: PCP Family Medicine; Visit Provider Family Medicine
DX: D64.9 Anemia, unspecified (principal); E87.1 Hypo-osmolality and hyponatremia; E11.51 Type 2 diabetes mellitus with diabetic peripheral angiopathy without gangrene; I70.209 Unspecified atherosclerosis of native arteries of extremities, unspecified extremity
CPT/HCPCS: 36415; 80048; 82728; 83036; 83540; 85025

== ENCOUNTER → 2023-07-04 02:46 | Outpatient (CLI) | payer MEDICARE, SELFPAY ==
--- NOTE | 2023-07-04 07:00 | DI.US_ITS ---
APPROVED REPORT EXAM: Comprehensive 2D, Doppler, and color-flow Echocardiogram Patient Location: Out-Patient Quilt Stuffer: Michele Brewer RDCS (AE) Indications: check LV function, nonischemic cardiomyopathy Other Information Study Quality: Fair. Technically limited study due to body habitus. Conclusion Mild concentric left ventricular hypertrophy. Ejection fraction is 40%. The inferior and posterior lopez are akinetic and the remainder of the ventricle is hypocontractile Normal right ventricular size and systolic function Both atria are normal in size Aortic valve is calcified and probably trileaflet without stenosis or regurgitation Normal mitral valve with mild regurgitation Normal tricuspid valve with mild regurgitation Mildly dilated ascending aorta 3.52 cm Wall motion Left Ventricle The left ventricle is normal size. Left ventricular systolic function is moderately decreased. Mild c oncentric left ventricular hypertrophy. Inferior and posterior lopez are akinetic, remainder hypokine tic There is no ventricular septal defect visualized. LVEF is 40%. Right Ventricle The right ventricle is normal size. Right ventricular systolic function is grossly normal. Unable to assess PA pressure. Atria The left atrium size is normal. The right atrium size is normal. The interatrial septum is intact wit h no evidence for an atrial septal defect. Aortic Valve Aortic valve is calcified. Aortic valve is probably trileaflet. There is no aortic valvular stenosis. No aortic regurgitation is present. Mitral Valve The mitral valve is normal in structure. No evidence of mitral valve stenosis. Mild mitral regurgitat ion. Tricuspid Valve The tricuspid valve is normal in structure. There is no tricuspid valve stenosis. Mild tricuspid regu rgitation. Pulmonic Valve The pulmonary valve is normal in structure. There is no pulmonic valvular stenosis. There is no pulmo shirley valvular regurgitation. Great Vessels The aortic root is normal in size. The ascending aorta is mildly dilated. Aortic arch is not well vis ualized. IVC is normal in size and collapses >50% with inspiration. Pericardium There is no pericardial effusion. 2D Dimensions IVSD d PLAX 1.35 cm M: 0.6-1.2 Ao Root d 2.99 cm M: 3.1 - 3.7 LVPW d PLAX 1.18 cm M: 0.6 - 1.2 Ao Asc Diam d 3.52 cm M: 2.6 - 3.4 LVID d PLAX 5.05 cm M: 4.2 - 5.8 LVDs 4.07 cm M: 2.5 - 4.0 LV EF Teichholz 39.8 % FS 19.43 % LV EDV (Teich) 120.8 mL LV ESV (Teich) 72.8 mL Stroke Vol Index (Teich) 22.46 M-Mode TAPSE 2.36 cm (M/F) >1.7 Auto EF LV EDV A4C 287.5 mL LV EDV A2C 193.8 mL LV EDV BP 247.3 mL LV ESV A4C 167.1 mL LV ESV A2C 106.2 mL LV ESV BP 134.2 mL LVEF(%) A4C 41.9 % LVEF(%) A2C 45.2 % LVEF(%) BP 45.7 % LV SV A4C 120.4 ml LV SV A2C 87.6 ml LV SV BP 113.1 ml LV CO A4C 9.8 L/min LV CO A2C 7.2 L/min LV CO BP 8.5 L/min HR A4C 81.08 BPM HR A2C 82.01 BPM LV EDV Index (BP) LA Volume LA Length A4C 7.1 cm LA Length A2C LA Area A4C s 29.34 cm2 LA Area A2C s LA Vol A4C A-L 103.58 mL LA Vol A2C A-L LA Vol Biplane A-L LA Vol A4C MOD 100.6 mL LA Vol A2C MOD LA Vol BP MOD RA Volume RA Area A4C 13.0 cm2 RA ESV A4C (A-L) 33.4mL RA Vol/BSA A4C A-L RA Length A4C 4.3 cm RA ESV A4C (MOD) 33.0mL LV Diastology MV E' medial 0.079 (>0.07 m/s) MV E Vmax 0.79 (0.4-1.3 m/s) MV E/E' MED 10.03 (<14) MV A Vmax 0.90 (0.4-1.3 m/s) MV E' lateral 0.091 (>0.1 m/s) E/A Ratio 0.9 MV E/E' LAT 8.68 (<14) MV E' Average 0.085 m/s MV E/E'(average) 9.31 Aortic Valve AoV Vmax 1.06 m/s LVOT Vmax 1.06 m/s AoV Peak Grad 4.5 mmHg LVOT Peak Grad 4.5 mmHg AoV Area (Vmax) 3.08 cm2 LVOT VTI 0.184 m AoV VTI 0.175 m LVOT Mean Grad 2.3 mmHg AoV Mean Fernando. 0.65 m/s LVOT SV 56.61 mL AoV Mean Grad 2.1 mmHg LVOT Diam s 1.95 cm AoV Area (VTI) 3.24 cm2 Velocity Ratio 1.00 Pulmonary Valve PV Vmax 0.80 (0.5-1.5 m/s) RVOT Vmax 0.64 m/s PV Peak Grad 2.6 mmHg RVOT Peak Gr. 1.7 mmHg PV Mean Fernando 0.55 m/s RVOT VTI 0.074 m PV Mean Grad 1.4 mmHg RVOT Mean Gr. 0.8 mmHg
== END ==
PROVIDERS: PCP Family Medicine; Visit Provider Internal Medicine Cardiovascular Disease
DX: I42.8 Other cardiomyopathies (principal)
CPT/HCPCS: 93306

== ENCOUNTER → 2023-07-31 13:04 | Outpatient (BNVA) | payer MEDICARE, SELFPAY | PROVIDERS: PCP Family Medicine; Referring Provider Family Medicine; Visit Provider Internal Medicine Cardiovascular Disease | DX: I42.8 Other cardiomyopathies (principal); D50.0 Iron deficiency anemia secondary to blood loss (chronic); I11.0 Hypertensive heart disease with heart failure; I50.42 Chronic combined systolic (congestive) and diastolic (congestive) heart failure; E11.9 Type 2 diabetes mellitus without complications | CPT/HCPCS: 99214 ==

== ENCOUNTER 2023-09-20 14:29 | Outpatient (CLI) | payer MEDICARE, SELFPAY ==
[2023-09-20 10:59] LABS: HCT 47.5 % (40.0-50.0); HGB 15.2 g/dL (13.5-17.5); MCH 28.2 pg (27.0-33.0); MCV 88 fL (80-95); MPV 11.5 fL (8.0-11.0); Platelet Count 175 10^3/uL (130-400); RBC 5.39 10^6/uL (4.36-5.78); RDW 14.1 % (11.8-14.1); WBC 8.89 10^3/uL (4.4-10.8)
[2023-09-20 11:32] LABS: Anion Gap 3.9 mmol/L (3-11); BUN 15 mg/dL (7-18); CO2 31.1 mmol/L (21.0-32.0); CREATININE 0.9 mg/dL (0.70-1.30); Calcium 9.3 mg/dL (8.5-10.1); Chloride 102 mmol/L (98-107); Estimated GFR 87.42 (mL/min/1.73m2); Glucose 156 mg/dL (74-106); Potassium 4.1 mmol/L (3.5-5.1); Sodium 137 mmol/L (136-145)
== END 2023-09-20 14:30 | disposition home or self-care (01) ==
LOC: LBO 14:29
PROVIDERS: PCP Family Medicine; Visit Provider Internal Medicine Cardiovascular Disease
DX: D64.9 Anemia, unspecified (principal); I50.9 Heart failure, unspecified
CPT/HCPCS: 36415; 80048; 85027

== ENCOUNTER → 2023-11-01 13:13 | Outpatient (BNVA) | payer MEDICARE, SELFPAY | PROVIDERS: PCP Family Medicine; Visit Provider Internal Medicine Cardiovascular Disease | DX: I42.8 Other cardiomyopathies (principal); I10 Essential (primary) hypertension | CPT/HCPCS: 99213 ==

== ENCOUNTER 2024-02-21 08:34 | Emergency (ER) | payer MEDICARE, SELFPAY ==
--- NOTE | 2024-02-21 11:28 | W.ED.GENAD ---
Discharge Plan Discharge Details Primary Care Provider: Jose Sesay ED Provider: Unknown,Unknown Home Meds and New Rx's Prescriptions: No Action nicotine (polacrilex) 4 mg lozenge 4 mg buccal Q4H PRN (Reason: nicotine cravings) Qty: 81 2RF metformin 500 mg tablet 500 mg PO BID Qty: 180 3RF (DME) lancets Misc See Rx Instructions .MEDSUPPLY Qty: 100 4RF Rx Instructions: Check blood sugar once a day (DME) Accu-Chek Guide test strips Strip See Rx Instructions .MEDSUPPLY Qty: 100 3RF Rx Instructions: test daily (DME) blood-glucose meter [Accu-Chek Guide Glucose Meter] Misc See Rx Instructions .MEDSUPPLY Qty: 1 0RF Rx Instructions: As directed sacubitril-valsartan 24-26 mg tablet 1 tab PO BID Qty: 180 8RF amlodipine 5 mg tablet 5 mg PO DAILY Qty: 90 3RF aspirin [Aspirin Low-Strength] 81 MG tablet,chewable 1 tab PO DAILY omeprazole [Prilosec] 40 mg capsule,delayed release(DR/EC) 40 mg PO BID Qty: 90 Rx Instructions: 12/28/18 20 mg bid ferrous sulfate 325 mg (65 mg iron) tablet 325 mg PO BID Qty: 180 3RF Rx Instructions: one/day for first week nicotine (polacrilex) [Nicorette] 4 mg lozenge 4 mg buccal Q6H PRN (Reason: nicotine cravings) Qty: 108 3RF atorvastatin 80 mg tablet 80 mg PO DAILY Qty: 90 3RF empagliflozin 25 mg tablet 25 mg PO QAM Qty: 90 3RF multivit with min-folic acid [One-A-Day Men VitaCraves] 200 mcg Tablet,Chewable 1 tab PO DAILY HPI General Date/Time Provider Initiated Documentation: 02/21/24 11:27. Related Data Home Medications Medication Instructions Recorded Confirmed aspirin 81 mg chewable tablet 1 tab PO DAILY 01/14/13 01/01/24 (Aspirin Low-Strength) multivitamin with minerals-folic 1 tab PO DAILY 12/28/18 01/01/24 acid 200 mcg chewable tablet (One-A-Day Men VitaCraves) omeprazole 40 mg capsule,delayed 40 mg PO BID #90 tab-caps 06/08/22 01/01/24 release (Prilosec) nicotine (polacrilex) 4 mg buccal 4 mg buccal Q4H PRN nicotine 08/23/22 01/01/24 lozenge cravings #81 ea ferrous sulfate 325 mg (65 mg 325 mg PO BID #180 tabs 03/27/23 01/01/24 iron) tablet nicotine (polacrilex) 4 mg buccal 4 mg buccal Q6H PRN nicotine 06/26/23 01/01/24 lozenge (Nicorette) cravings #108 ea atorvastatin 80 mg tablet 80 mg PO DAILY #90 tabs 06/28/23 01/01/24 sacubitril 24 mg-valsartan 26 mg 1 tab PO BID #180 tabs 07/31/23 01/01/24 tablet blood sugar diagnostic (Accu-Chek #100 ea 09/26/23 01/01/24 Guide test strips) blood-glucose meter (Accu-Chek #1 ea 09/26/23 01/01/24 Guide Glucose Meter) lancets #100 ea 09/26/23 01/01/24 metformin 500 mg tablet 500 mg PO BID #180 tabs 09/26/23 01/01/24 empagliflozin 25 mg tablet 25 mg PO QAM #90 tabs 10/28/23 01/01/24 amlodipine 5 mg tablet 5 mg PO DAILY #90 tab-caps 01/01/24 01/01/24 Previous Rx's Medication Instructions Recorded nicotine (polacrilex) 4 mg buccal 4 mg buccal Q4H PRN nicotine 08/23/22 lozenge cravings #81 ea ferrous sulfate 325 mg (65 mg 325 mg PO BID #180 tabs 03/27/23 iron) tablet nicotine (polacrilex) 4 mg buccal 4 mg buccal Q6H PRN nicotine 06/26/23 lozenge (Nicorette) cravings #108 ea atorvastatin 80 mg tablet 80 mg PO DAILY #90 tabs 06/28/23 sacubitril 24 mg-valsartan 26 mg 1 tab PO BID #180 tabs 07/31/23 tablet blood sugar diagnostic (Accu-Chek #100 ea 09/26/23 Guide test strips) blood-glucose meter (Accu-Chek #1 ea 01/17/24 Guide Glucose Meter) lancets #100 ea 09/26/23 metformin 500 mg tablet 500 mg PO BID #180 tabs 09/26/23 empagliflozin 25 mg tablet 25 mg PO QAM #90 tabs 10/28/23 amlodipine 5 mg tablet 5 mg PO DAILY #90 tab-caps 01/01/24 Allergies Allergy/AdvReac Type Severity Reaction Status Date / Time No Known Allergies Allergy Verified 01/01/24 09:10 General GRISELDA: 3 Medical Decision Making Please see paper chart. In short patient is a 79-year-old male who presents to the ER with chief complaint of urinary retention, abdominal pain, bladder swelling decreased urination and urinary dribbling over the last couple of days which is worsening. Labs obtained, CT paper chart. At 1027 urology was paged, I did speak with Dr. Urban at 1032, discussed patient case in details and recommendations and plan for care. He verbalized understanding is in agreement with the plan. He will see patient next week. Patient was given discharge instructions Wright leg bag and strict return instructions. Was given cephalexin 5 mg twice daily and tamsulosin. This text was generated using [employer] dictation system, please disregard any oddities of phrase or misspellings. 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 Sister No problems noted. Brother No problems noted. Son No problems noted. Son No problems noted. Social History Smoking/Tobacco Use Status: Current every day Tobacco Type: cigarettes Tobacco: How many years used: 30 Quit status: has quit before Second Hand Exposure: Yes Counseling given: counseling >3 minutes Smoking risk assessment performed?: Yes Alcohol Intake: current Alcohol Intake frequency: a few times a month Alcohol type: hard liquor Drug use: Never Substance use type: does not use Household members: spouse Do you need help understanding health information?: Rarely Pets and animals: Yes Pets and animals: dog(s) Do you think of yourself as: straight/heterosexual Current gender identity: male What is your relationship status?: How often do you talk on the phone with friends or family?: three or more times per week How often do you get together with friends or relatives?: twice per week How often do you attend worship or mu-ism services?: 1-3 times per year Do you belong to any clubs or organized social groups?: no Panel score (0-1 are the most socially isolated patients): 2 What type of physical activity do you participate in: walking Duration: < 15 minutes/day Frequency: 1-2 times per week Mi/Confucianist: Christianity Special mi needs: No Seatbelt use: always Helmet use: Yes Helmet use: always Drive intox or ride w/intox uke driver: No Do you feel safe at home: Yes Do you feel safe in your relationship?: Yes Additional Social history: Lives with on [address] outside of [facility]. 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 Likes to golf and grant
[2024-02-21 12:20] LABS: ALT 32 U/L (16-63); AST 23 U/L (15-37); Alkaline Phosphatase 84 U/L (46-116); Anion Gap 11.1 mmol/L (3-11); BUN 28 mg/dL (7-18); Bilirubin, Total 0.6 mg/dL (0.2-1.0); CO2 25.9 mmol/L (21.0-32.0); CREATININE 1.4 mg/dL (0.70-1.30); Calcium 9.7 mg/dL (8.5-10.1); Chloride 104 mmol/L (98-107); Estimated GFR 51.13 (mL/min/1.73m2); Glucose 149 mg/dL (74-106); Potassium 4.2 mmol/L (3.5-5.1); Sodium 141 mmol/L (136-145); Total Protein 7.6 g/dL (6.4-8.2)
[2024-02-21 12:23] LABS: Bilirubin Negative (Negative); Blood Trace-intact (Negative); Clarity Sl Cloudy (Clear); Glucose >=1000 mg/dL (Negative); Ketones Negative (Negative); Leukocyte Esterase Trace (Negative); Nitrite Negative (Negative); Specific Gravity 1.015 (1.005-1.025); Urobilinogen 0.2 mg/dL (Up to 0.2); pH 5.5 (5-8)
[2024-02-21 12:24] LABS: Bacteria Rare HPF (Negative); C & S Indicated? No; Epithelial Cells Moderate HPF (Negative); Mucus Moderate (Negative)
[2024-02-21 12:27] LABS: Absolute Eosinophil Count 0.08 10^3/uL (0.0-0.7); Absolute Lymphocyte Count 1.31 10^3/uL (1.2-3.4); Absolute Monocyte Count 0.79 10^3/uL (0.1-0.8); Absolute Neutrophil Count 12.62 10^3/uL (1.2-6.7); Basophils % 0.3 %; Eosinophils % 0.5 %; HGB 14.7 g/dL (13.5-17.5); Immature Grans % 0.5 %; Lymphocytes % 8.8 %; MCH 29.8 pg (27.0-33.0); MCHC 33.4 % (32.0-36.0); MCV 89 fL (80-95); MPV 11.4 fL (8.0-11.0); Monocytes % 5.3 %; Neutrophils % 84.6 %; Platelet Count 216 10^3/uL (130-400); RBC 4.94 10^6/uL (4.36-5.78); RDW 13.9 % (11.8-14.1); RDW-SD 44.7 fL; WBC 14.93 10^3/uL (4.4-10.8)
[2024-02-21 12:28] LABS: Abs Immature Grans 0.08 10^3/uL (0.0-0.06); Absolute Basophil Count 0.05 10^3/uL (0.0-0.2)
== END 2024-02-21 11:28 | disposition home or self-care (01) ==
LOC: ER 11:15
PROVIDERS: Emergency Provider Registered Nurse Emergency; PCP Family Medicine
DX: R33.9 Retention of urine, unspecified (principal); I11.0 Hypertensive heart disease with heart failure; I50.9 Heart failure, unspecified; I25.2 Old myocardial infarction; E11.9 Type 2 diabetes mellitus without complications; F17.210 Nicotine dependence, cigarettes, uncomplicated; Z79.4 Long term (current) use of insulin; Z79.82 Long term (current) use of aspirin; Z79.84 Long term (current) use of oral hypoglycemic drugs
CPT/HCPCS: 80053; 84153; 99284; 81003; 81015; 85025; J2270

== ENCOUNTER → 2024-02-28 07:53 | Outpatient (BNVA) | payer MEDICARE, SELFPAY | PROVIDERS: PCP Family Medicine; Referring Provider Family Medicine; Visit Provider Nurse Practitioner Gerontology | DX: N40.1 Benign prostatic hyperplasia with lower urinary tract symptoms (principal); R33.8 Other retention of urine | CPT/HCPCS: 51798; 99215 ==

== ENCOUNTER → 2024-03-24 08:02 | Outpatient (BNVA) | payer MEDICARE, SELFPAY | PROVIDERS: PCP Family Medicine; Referring Provider Family Medicine; Visit Provider Nurse Practitioner Gerontology | DX: N40.1 Benign prostatic hyperplasia with lower urinary tract symptoms (principal); R33.8 Other retention of urine | CPT/HCPCS: 99213 ==

== ENCOUNTER → 2024-05-09 13:36 | Outpatient (BNVA) | payer MEDICARE, SELFPAY | PROVIDERS: PCP Family Medicine; Visit Provider Internal Medicine Cardiovascular Disease | DX: I42.8 Other cardiomyopathies (principal) | CPT/HCPCS: 99213 ==

== ENCOUNTER 2024-05-30 12:29 | Outpatient (CLI) | payer MEDICARE, SELFPAY ==
[2024-05-30 13:40] LABS: CREATININE 0.9 mg/dL (0.70-1.30); Estimated GFR 86.88 (mL/min/1.73m2)
== END 2024-05-30 12:30 | disposition home or self-care (01) ==
LOC: LBO 12:29
PROVIDERS: PCP Family Medicine; Visit Provider Family Medicine
DX: I10 Essential (primary) hypertension (principal)
CPT/HCPCS: 36415; 82565

== ENCOUNTER → 2024-07-07 08:25 | Outpatient (BNVA) | payer MEDICARE, SELFPAY | PROVIDERS: PCP Family Medicine; Visit Provider Nurse Practitioner Gerontology | DX: N40.1 Benign prostatic hyperplasia with lower urinary tract symptoms (principal); R33.8 Other retention of urine | CPT/HCPCS: 51798; 99213 ==

== ENCOUNTER 2024-08-27 03:30 | Outpatient (CLI) | payer MEDICARE, SELFPAY ==
--- NOTE | 2024-08-27 07:30 | DI.US_ITS ---
APPROVED REPORT EXAM: Comprehensive 2D, Doppler, and color-flow Echocardiogram Patient Location: Out-Patient [facility] Representative: Daysi Berry RDCS (AE) Indications: Reassess asc aorta dilation, SOB Other Information Study Quality: Fair. Technically limited study due to body habitus. Conclusion Mild concentric left ventricular hypertrophy. Ejection fraction is 40%. There are inferior posterol ateral wall motion abnormalities Normal right ventricular size and function Mildly enlarged left atrium. Normal right atrial size Aortic valve is sclerotic and trileaflet. There is no aortic stenosis or regurgitation Mildly thickened mitral leaflets. Trace to mild mitral regurgitation Mildly dilated ascending aorta , 3.8 cm Wall motion Left Ventricle The left ventricle is normal size. Left ventricular systolic function is moderately decreased. Mild c oncentric left ventricular hypertrophy. Regional wall motion abnormalities are noted. There is no fanta tricular septal defect visualized. LVEF is 40%. Right Ventricle The right ventricle is normal size. The right ventricular systolic function is normal. Atria Left atrium is mildly dilated. The right atrium size is normal. The interatrial septum is intact with no evidence for an atrial septal defect. Aortic Valve The Aortic valve is sclerotic. Aortic valve is trileaflet. There is no aortic valvular stenosis. No a ortic regurgitation is present. Mitral Valve Mildly thickened mitral leaflets No evidence of mitral valve stenosis. Trace to mild mitral regurgita tion. Tricuspid Valve The tricuspid valve is normal in structure. There is no tricuspid valve stenosis. Trace tricuspid reg urgitation. Unable to assess PA pressure. Pulmonic Valve The pulmonary valve is normal in structure. There is no pulmonic valvular stenosis. There is no pulmo shirley valvular regurgitation. Great Vessels The aortic root is normal in size. The ascending aorta is mildly dilated. Aortic arch is not well vis ualized. IVC is normal in size and collapses >50% with inspiration. Pericardium There is no pericardial effusion. 2D Dimensions IVSD d PLAX 1.30 cm M: 0.6-1.2 Ao Root d 3.47 cm M: 3.1 - 3.7 LVPW d PLAX 1.30 cm M: 0.6 - 1.2 Ao Asc Diam d 3.84 cm M: 2.6 - 3.4 LVID d PLAX 5.00 cm M: 4.2 - 5.8 Left Atrium 0.00 cm M: 3.0 - 4.0 LVDs 4.00 cm M: 2.5 - 4.0 LV EF Teichholz 41.5 % FS 20.39 % LV EDV (Teich) 117.3 mL LV ESV (Teich) 68.6 mL M-Mode TAPSE 2.64 cm (M/F) >1.7 Auto EF LV EDV A4C 137.8 mL LV EDV A2C 134.8 mL LV EDV BP 134.3 mL LV ESV A4C 83.2 mL LV ESV A2C 79.3 mL LV ESV BP 81.4 mL LVEF(%) A4C 39.6 % LVEF(%) A2C 41.2 % LVEF(%) BP 39.4 % LV SV A4C 54.6 ml LV SV A2C 55.6 ml LV SV BP 53.0 ml LV CO A4C 3.5 L/min LV CO A2C 3.4 L/min LV CO BP 3.5 L/min HR A4C 64.06 BPM HR A2C 61.96 BPM LV EDV Index (BP) LV Strain Long Pk Overal Avg (s) 12.65 LA Volume LA Length A4C 5.8 cm LA Length A2C 5.4 cm LA Area A4C s 23.65 cm2 LA Area A2C s 16.86 cm2 LA Vol A4C A-L 82.20 mL LA Vol A2C A-L 44.71 mL LA Vol Biplane A-L 62.7 mL LA Vol/BSA A4C A-L LA Vol/BSA A2C A-L LA Vol/BSA BP A-L 58.6 mL/m2 LA Vol A4C MOD 75.6 mL LA Vol A2C MOD 42.5 mL LA Vol BP MOD 58.5 mL RA Volume RA Area A4C 14.7 cm2 RA ESV A4C (A-L) 35.8mL RA Vol/BSA A4C A-L RA Length A4C 5.1 cm RA ESV A4C (MOD) 34.5mL LV Diastology MV E' medial 0.054 (>0.07 m/s) MV E Vmax 0.74 (0.4-1.3 m/s) MV E/E' MED 13.54 (<14) MV A Vmax 1.10 (0.4-1.3 m/s) MV E' lateral 0.097 (>0.1 m/s) E/A Ratio 0.7 MV E/E' LAT 7.57 (<14) MV E' Average 0.076 m/s MV E/E'(average) 9.71 Aortic Valve AoV Vmax 1.69 m/s LVOT Vmax 1.33 m/s AoV Peak Grad 11.4 mmHg LVOT Peak Grad 7.1 mmHg AoV Area (Vmax) 2.55 cm2 LVOT VTI 0.247 m AoV VTI 0.327 m LVOT Mean Grad 3.6 mmHg AoV Mean Fernando. 1.06 m/s LVOT SV 79.93 mL AoV Mean Grad 5.4 mmHg LVOT Diam s 2.00 cm AoV Area (VTI) 2.45 cm2 AV Regurg Peak Gr. 11.43 mmHg Velocity Ratio 0.79 Mitral Valve MV DT 389 (160-240 msec) MV Vmax TIPS 0.99 m/s MV Mean Grad 1.8 (<2mmHg) MV VTI 0.293 m Pulmonary Valve PV Vmax 1.03 (0.5-1.5 m/s) RVOT Vmax 0.74 m/s PV Peak Grad 4.2 mmHg RVOT Peak Gr. 2.2 mmHg PV Mean Fernando 0.76 m/s RVOT VTI 0.155 m PV Mean Grad 2.5 mmHg RVOT Mean Gr. 1.3 mmHg Tricuspid Valve TV S' 0.12 m/s
== END 2024-08-27 03:50 ==
LOC: DI 03:30
PROVIDERS: PCP Family Medicine; Visit Provider Family Medicine
DX: I51.7 Cardiomegaly (principal)
CPT/HCPCS: 93306

== ENCOUNTER → 2024-10-06 08:18 | Outpatient (BNVA) | payer MEDICARE, SELFPAY | PROVIDERS: PCP Family Medicine; Referring Provider Family Medicine; Visit Provider Nurse Practitioner Gerontology | DX: N40.1 Benign prostatic hyperplasia with lower urinary tract symptoms (principal); R33.8 Other retention of urine; R97.20 Elevated prostate specific antigen [PSA] | CPT/HCPCS: 51798; 99213 ==

== ENCOUNTER 2025-03-26 01:23 | Outpatient (CLI) | payer MEDICARE, SELFPAY ==
[2025-03-26 09:35] LABS: BUN 17 mg/dL (7-18); Estimated GFR 89.47 (mL/min/1.73m2)
[2025-03-26 19:12] LABS: PSA, Diagnostic 7.1 ng/mL (<=6.5)
== END 2025-03-26 01:24 | disposition home or self-care (01) ==
LOC: LBO 01:23
PROVIDERS: PCP Family Medicine; Visit Provider Nurse Practitioner Gerontology
DX: N40.1 Benign prostatic hyperplasia with lower urinary tract symptoms (principal); R33.8 Other retention of urine; R97.20 Elevated prostate specific antigen [PSA]
CPT/HCPCS: 36415; 84520; 82565; 84153

== ENCOUNTER → 2025-04-02 09:52 | Outpatient (BNVA) | payer MEDICARE, SELFPAY | PROVIDERS: PCP Family Medicine; Referring Provider Family Medicine; Visit Provider Nurse Practitioner Gerontology | DX: N40.1 Benign prostatic hyperplasia with lower urinary tract symptoms (principal); R33.8 Other retention of urine; R97.20 Elevated prostate specific antigen [PSA] | CPT/HCPCS: 99214; 51798 ==

== ENCOUNTER 2025-05-15 13:27 | Outpatient (CLI) | payer MEDICARE, SELFPAY ==
--- NOTE | 2025-05-15 13:15 | RT.EKG_ITS ---
APPROVED REPORT Exam: Resting ECG Reason for Exam: HTN Patient Location: O HR:74 bpm ECG Measurements Heart Rate 74 AXIS TX 222 P 37 QRSd 145 QRS -76 QT 406 T 78 QTc 451 Conclusion Sinus rhythm...normal P axis, V-rate 50- 99 Prolonged TX interval...TX >220, V-rate 50- 90 Right bundle branch block...QRSd>120, terminal axis(90,270) LAFB
== END 2025-05-15 13:28 | disposition home or self-care (01) ==
LOC: DI.CARD 13:29
PROVIDERS: PCP Family Medicine; Referring Provider Family Medicine; Visit Provider Internal Medicine Cardiovascular Disease
DX: I10 Essential (primary) hypertension (principal); I45.10 Unspecified right bundle-branch block
CPT/HCPCS: 93010

== ENCOUNTER → 2025-05-15 13:27 | Outpatient (BNVA) | payer MEDICARE, SELFPAY | PROVIDERS: PCP Family Medicine; Referring Provider Family Medicine; Visit Provider Internal Medicine Cardiovascular Disease | DX: I42.8 Other cardiomyopathies (principal); I10 Essential (primary) hypertension | CPT/HCPCS: 99213; 93005 ==